=== PATIENT | male | born 1950 | race Caucasian/White ===

== ENCOUNTER → 2019-01-18 07:17 | Outpatient (CLI) | payer OTHER, MEDICAID, SELFPAY ==
--- NOTE | 2019-01-18 | DI.US.S_ITS ---
PROCEDURE: US ARTERIAL DUPLEX LE BI INDICATIONS: PAIN IN BOTH LOWER EXTREMITIES TECHNIQUE: Color and pulse Doppler interrogation was performed of both lower extremity arterial systems, with image documentation. COMPARISON: None. FINDINGS: Right lower extremity: Common femoral artery: 166 cm/sec, with triphasic flow. Deep femoral artery: 160 cm/sec, with triphasic flow. Proximal superficial femoral artery: 165 cm/sec, with triphasic flow. Mid superficial femoral artery: 92 cm/sec, with triphasic flow. Distal superficial femoral artery: 93 cm/sec, with triphasic flow. Popliteal artery: 80 cm/sec, with triphasic flow. Posterior tibial artery: 107 cm/sec, with triphasic flow. Anterior tibial artery/dorsalis pedis: 60 cm/sec, with triphasic flow. Siu-scale imaging description: Mild diffuse plaque Left lower extremity: Common femoral artery: 141 cm/sec, with triphasic flow. Deep femoral artery: 157 cm/sec, with triphasic flow. Proximal superficial femoral artery: 82 cm/sec, with triphasic flow. Mid superficial femoral artery: 87 cm/sec, with triphasic flow. Distal superficial femoral artery: 105 cm/sec, with triphasic flow. Popliteal artery: 87 cm/sec, with triphasic flow. Posterior tibial artery: 83 cm/sec, with triphasic flow. Anterior tibial artery/dorsalis pedis: 67 cm/sec, with triphasic flow. Siu-scale imaging description: Mild diffuse plaque IMPRESSION: No evidence of arterial insufficiency to the bilateral lower extremities. Dictated by: Juan Miguel M.D. on 01/18/2019 at 14:05 Approved by: Juan Miguel M.D. on 01/18/2019 at 14:07
--- NOTE | 2019-01-18 | DI.NM.S_ITS ---
PROCEDURE: NM CROW PERF SPECT R&S PHARM Rest and pharmacological stress myocardial perfusion SPECT with gated imaging and ejection fraction RADIOPHARMACEUTICAL: 24.2 mCi Tc-99m tetrafosmin IV at rest and 25.8 mCi Tc-99m tetrafosmin IV at peak effect of pharmacological stress. [id number] was performed. INDICATIONS: SHORTNESS OF BREATH TECHNIQUE: Radiopharmaceutical was injected at peak stress test, and also at rest. SPECT images were obtained. SPECT myocardial perfusion images were displayed in short axis, horizontal long axis, and vertical long axis views. Gated images were reviewed using [employer] software. COMPARISON: None. CARDIAC STRESS: A pharmacologic stress test was performed under the supervision of an attending staff, using an infusion of lexiscan. Patient did exercise for 6 minutes and 56 seconds (4.6 METs) but only reached 66% of max predicted heart rate and, therefore, the study was switched to pharmaceutical nuclear stress test. Hemodynamic data: There is normal blood pressure and heart rate response to pharmacologic stress. Symptoms: The patient denied anginal chest pain. Aminophylline: none EKG: No diagnostic changes of ischemia; no ectopy. FINDINGS: Raw data: There is good myocardial uptake of radiotracer. No significant motion artifacts. Tnnt-ha-trxzx ratio is 0.43 (normal is less than 0.38 for tetrafosmin tracer). Left ventricle function: Gated images demonstrate normal mild hypokinesis of the basal inferior wall. No transient ischemic dilation; TID is 0.92 (normal less than 1.3). Left ventricle resting end diastolic volume is 119 mL. Left ventricle stress ejection fraction is 74%; normal range is above 45%. Myocardial perfusion: There is a severe fixed defect in the basal inferior wall that persists with prone imaging, suggesting prior infarct with no significant ischemia. There is a moderately severe fixed mid- distal inferior wall defect extending to apex that improves significantly with prone imaging, suggesting diaphragmatic attenuation rather than true ischemia or infarction. 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 No ischemia. 1) Abnormal perfusion images consistent with prior infarct in the basal inferior wall. There is a severe fixed defect in the basal inferior wall that persists with prone imaging, suggesting prior infarct with no significant ischemia. There is a moderately severe fixed mid- distal inferior wall defect extending to apex that improves significantly with prone imaging, suggesting diaphragmatic attenuation rather than true ischemia or infarction. 2) Normal left ventricular size and systolic function (post stress EC 74%). Basal inferior wall is mildly hypokinetic. 3) No ECG evidence of ischemia. 4) No angina during the study. 5) Target heart rate not reached with exercise (4.6 METs, only 66% of max predicted heart rate reached). Study switched to lexiscan. 6) No prior nuclear stress test available for comparison. Dictated by: Adelina Landeros MD on 01/19/2019 at 12:48 Approved by: Adelina Landeros MD on 01/19/2019 at 12:54
--- NOTE | 2019-01-18 09:23 | PM.TREADMILL ---
Cardiac Stress Test Report Referral & Results Date Patient Seen: 01/18/19 Requesting provider: Ozzy De Anda Indication: Dyspnea, known coronary disease status post bypass surgery 2017 Rest ECG: Unremarkable Procedure Note: After both written and verbal informed consent patient was hooked up to the treadmill monitoring system and had an IV started by the diagnostic imaging nursing staff. Patient was then placed on the treadmill per the usual [place] protocol. He quickly became quite dyspneic and really failed to increase his heart rate (he is on beta-deena therapy which he had continued at the direction of his finishing inspector). He became quite wheezy with obvious respiratory issues and it was clear he was not going to be able to continue much further with the test. Therefore the standard [place]rington protocol testing was abandoned in favor of switching to a Lexiscan stress. Patient's treadmill was then slow to 1 mi an hour with no elevation in he was injected with the Lexiscan material by the nuclear physicist. This is immediately followed by administration of the Cardiolite tracer. Patient's dyspnea and struggles while on Barrington protocol treadmill disappeared with the slower treadmill. He had no additional symptoms. After spending 3 minutes walking at 1 mi an hour with no elevation he was transferred back to the [facility] additional time spent monitoring his condition. Occasional PVCs were identified Impression: Normal response to infuse materials Please see perfusion imaging report for details regarding possible ischemia. Patient clearly has an element of chronic pulmonary disease based on his clinical picture while exercising, and I suggested he have repeat pulmonary function testing performed as well (he tells me he had this done prior to his bypass surgery in 2017) Please note: Actual ECG tracings can be found in the PACS system.
--- NOTE | 2019-01-18 09:26 | P.PCN_ITS ---
Cardiac Stress Test Report Referral & Results Date Patient Seen: 01/18/19 Requesting provider: Ozzy De Anda Indication: Dyspnea, known coronary disease status post bypass surgery 2017 Rest ECG: Unremarkable Procedure Note: After both written and verbal informed consent patient was hooked up to the treadmill monitoring system and had an IV started by the diagnostic imaging nursing staff. Patient was then placed on the treadmill per the usual [place] protocol. He quickly became quite dyspneic and really failed to increase his heart rate (he is on beta-deena therapy which he had continued at the direction of his mass spectroscopist). He became quite wheezy with obvious respiratory issues and it was clear he was not going to be able to continue much further with the test. Therefore the standard Barrington protocol testing was abandoned in favor of switching to a Lexiscan stress. Patient's treadmill was then slow to 1 mi an hour with no elevation in he was injected with the Lexiscan material by the nuclear equipment operator. This is immediately followed by administration of the Cardiolite tracer. Patient's dyspnea and struggles while on Barrington protocol treadmill disappeared with the slower treadmill. He had no additional symptoms. After spending 3 minutes walking at 1 mi an hour with no elevation he was transferred back to the [facility] additional time spent monitoring his condition. Occasional PVCs were identified Impression: Normal response to infuse materials Please see perfusion imaging report for details regarding possible ischemia. Patient clearly has an element of chronic pulmonary disease based on his clinical picture while exercising, and I suggested he have repeat pulmonary function testing performed as well (he tells me he had this done prior to his bypass surgery in 2017) Please note: Actual ECG tracings can be found in the PACS system.
--- NOTE | 2019-01-22 16:37 | PM.PFT.1 ---
Pulmonary Function Test Referral & Results Date Patient Seen: 01/18/19 Requesting provider: Ozzy De Anda Results: The spirometry demonstrates an FVC of 2.93 L which is 60% of predicted. The FEV1 was measured at 2.14 L which is 67% of predicted. The FEV1/FVC ratio was 73 which is 98% of predicted. Following the administration of bronchodilator there was a 12% improvement in FEV1 and a 45% improvement in FEF 25-75%. Lung volumes show an SVC of 3.23 L which is 72% of predicted. The diffusing capacity was measured at 21.04 which is 67% of predicted. No hemoglobin value was provided, so no correction for potential anemia could be made, if appropriate. The maximum voluntary ventilation was reduced Interpretation: This study demonstrates mild obstructive lung disease with some limited evidence of benefit following bronchodilator administration based on improvement in FEV1 and FEF 25-75% There is also mild restrictive lung disease present based on reduction in lung volumes There is also mild reduction in diffusing capacity suggesting some element of disease at the capillary alveolar level Clinical correlation suggested
== END ==
PROVIDERS: PCP Family Medicine; Visit Provider Internal Medicine Cardiovascular Disease
DX: R06.02 Shortness of breath (principal)
CPT/HCPCS: 78452; 93016; 93017; 93018; 93925; 94060; 94726; 94729; A9502; J2785

== ENCOUNTER → 2019-01-19 07:49 | Outpatient (CLI) | payer OTHER, MEDICAID, SELFPAY ==
--- NOTE | 2019-01-19 | DI.ECHO.S_ITS ---
[place] [facility]---------+ [facility] +---------+ : : [address] : [address] : : : : [id number] : : : : Phone: [phone]+ Echocardiogram Report + + :Name: JONNY HELLER Study Date: 01/19/2019 Height: 69 in : :[facility] Exam Location: [facility] Weight: 231 lb : : Gender: Male BSA: 2.2 m2 : :: 1950 Age: 68 yrs BP: 120/82 mmHg: :Reason For Study: SOB : :Ordering Physician: Ozzy : :Alexiwal Performed By: Elva Page : + + Interpretation Summary The left ventricle is normal in size. The ejection fraction is estimated to be 50-55%. The right ventricle is grossly normal size. The right ventricular systolic function is normal. There is mild tricuspid regurgitation. The right ventricular systolic pressure is estimated to be at least 24 mmHg based on an estimated right atrial pressure of 8 mm Hg. The ascending aorta is moderately enlarged. Procedure: A two-dimensional transthoracic echocardiogram with color flow and Doppler was performed. The study quality was technically adequate. There is no prior echocardiogram noted for this patient. The heart rate ranged between 46-51 bpm during the study. The patient was in normal sinus rhythm during the exam. Left Ventricle: The left ventricle is normal in size. Proximal septal thickening is noted. There is no echo evidence for significant left ventricular outflow tract obstruction. There is no thrombus. The ejection fraction is estimated to be 50-55%. Septal motion is consistent with conduction abnormality. MV E/A: 1.6 Med Peak E' Zhang: 6.4 cm/sec E/E' med: 16.2. Right Ventricle: The right ventricle is grossly normal size. The right ventricular systolic function is normal. Atria: The left atrium is moderately dilated. The right atrium is borderline dilated. There is no Doppler evidence for an interatrial shunt. Mitral Valve: The mitral valve leaflets are slightly calcified. There is trace mitral regurgitation. Aortic Valve: The aortic valve is mildly calcified. The aortic valve is trileaflet. Leaflet mobility is minimally reduced. There is no hemodynamically significant valvular aortic stenosis. There is trace aortic regurgitation. Tricuspid Valve: The tricuspid valve is normal. There is mild tricuspid regurgitation. The right ventricular systolic pressure is estimated to be at least 24 mmHg based on an estimated right atrial pressure of 8 mm Hg. Pulmonic Valve: The pulmonic valve is not well visualized. There is trace pulmonic regurgitation. Great Vessels: The aortic root is normal size. The ascending aorta is moderately enlarged. The aortic arch could not be visualized. The pulmonary artery is not well visualized, but is probably normal size. The IVC is dilated (diameter is greater than 2.1 cm) yet it collapses greater than 50% with a sniff. This suggests a right atrial pressure of 8 mm Hg. Pericardium/ Pleura There is no pericardial effusion. MMode/2D Measurements & Calculations LVIDd: 5.2 cm LVOT diam: 2.1 cm LVIDs: 3.2 cm Ao root diam: 3.8 cm FS: 39.6 % asc Aorta Diam: 4.3 cm EPSS: 0.34 cm IVSd: 0.83 cm LVPWd: 0.70 cm LV sanchez. diameter/BSA (cm/m^2): 2.4 LV sys. diameter/BSA (cm/m^2): 1.4 LA dimension: 1.5 cm RA long axis: 6.0 cm LA A2 area: 25.7 cm2 RA area: 22.3 cm2 LA A4 area: 26.4 cm2 RA vol: 70.4 ml LA length (vol): 5.6 cm RA : 32.1 ml/m2 LA vol: 102.8 ml IVC diam: 2.3 cm LA vol index: 46.8 ml/m2 RVD1 (basal): 4.2 cm TAPSE: 2.2 cm Doppler Measurements & Calculations Ao V2 max: 146.9 cm/sec LVOT Max Zhang: 95.5 cm/sec Ao V2 mean: 100.8 cm/sec LV V1 max P.7 mmHg Ao max P.6 mmHg LV V1 VTI: 22.2 cm Ao mean P.5 mmHg BONNIE(I,D): 2.4 cm2 Ao V2 VTI: 32.4 cm BONNIE(V,D): 2.3 cm2 sev ratio: 0.68 BONNIE indexed to BSA (cm^2/m^2): 1.1 MV E max zhang: 103.4 cm/sec TR max zhang: 201.7 cm/sec MV A max zhang: 66.4 cm/sec TR max P.3 mmHg MV E/A: 1.6 PA V2 max: 71.6 cm/sec Med Peak E' Zhang: 6.4 cm/sec PA V2 mean: 55.8 cm/sec E/E' med: 16.2 PA mean P.3 mmHg Lat Peak E' Zhang: 9.1 cm/sec E/E' lat: 11.4 E/e' average: 13.8 MV dec time: 0.19 sec MV P1/2t: 57.4 msec MV P1/2t max zhang: 103.7 cm/sec SV(LVOT): 79.1 ml MVA(P1/2t): 3.8 cm2 Reading Physician:MARLEE
== END ==
PROVIDERS: PCP Family Medicine; Visit Provider Internal Medicine Cardiovascular Disease
DX: I07.1 Rheumatic tricuspid insufficiency (principal); I77.89 Other specified disorders of arteries and arterioles; R06.02 Shortness of breath
CPT/HCPCS: 93306

== ENCOUNTER 2019-04-09 10:30 | Emergency (ER) | payer MEDICARE, MEDICAID, SELFPAY ==
[2019-04-09 10:36] VITALS: BP 137/67; PULSE 70; RESP 14; TEMP 36.4; O2SAT 95
--- NOTE | 2019-04-09 10:43 | DI.US.S_ITS ---
PROCEDURE: US PERIPH VENOUS UP EXTREM RT INDICATIONS: PAIN R ARM/AXILLA AFTER PIV YESTERDAY, STAGE IV CANCER PT TECHNIQUE: Real-time imaging, as well as color and pulse Doppler interrogation, was performed of the right upper extremity deep veins from the inferior neck to the antecubital fossa. COMPARISON: None. FINDINGS: The internal jugular vein, visualized portions of the subclavian vein, axillary, and brachial veins are free of intraluminal thrombus. Where physically possible, the veins are normally compressible. Color and pulse Doppler demonstrate normal intraluminal flow, with expected phasicity and pulsatility. Additional scanning of the cephalic and basilic veins of the superficial system demonstrate normal compressibility, without thrombus. IMPRESSION: No evidence of right upper extremity deep vein thrombosis. Dictated by: Harrison Ansari M.D. on 04/09/2019 at 11:09 Approved by: Harrison Ansari M.D. on 04/09/2019 at 11:11
--- NOTE | 2019-04-09 11:34 | ED.EXTPRO ---
HPI - Extremity Problem <JANETH Ralph - Last Filed: 04/09/19 22:56> General Chief complaint: Extremity Problem,Nontraumatic Stated complaint: r arm pain/port/ Time Seen by Provider: 04/09/19 11:17 Source: patient Mode of arrival: ambulatory Limitations: no limitations History of Present Illness HPI Narrative: This is a pleasant 68-year-old gentleman, previous smoker, presents to ED with pain on right axilla. 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 He has a Port-A-cath on his right side chest and this was accessed yesterday for contrast. However, the port was working appropriately yesterday and the contrast was leaked on him. The nurse at the accessed peripheral IV on right AC with difficulty. He had completed imaging test yesterday with contrast. On the way home via [place], he started noticing pain on right axilla with right arm elevation. Patient reports the pain has gotten progressively worse today. He denies fever, redness, swelling on right axilla. Patient denies difficulty with breathing. Patient reports pain is recreated by palpation and elevation his right arm. Related Data Allergies Allergy/AdvReac Type Severity Reaction Status Date / Time codeine Allergy Vomiting Verified 04/09/19 10:41 Review of Systems <JANETH Ralph - Last Filed: 04/09/19 22:56> Review of Systems ROS Unobtainable: All systems reviewed & are unremarkable except as noted in HPI and below PFSH <JANETH Ralph - Last Filed: 04/09/19 22:56> Medical History Prostate cancer (Acute) Social History Smoking Status: Former smoker Social History Smoking Status: Former smoker Exam <JANETH Ralph - Last Filed: 04/09/19 22:56> Narrative Exam Narrative: General appearance: well developed, well nourished, in no acute distress. Head: normocephalic, atraumatic, no scalp lesions, non-tender. Eye: pupil equal, round. EOMI. Nose: nares patent. Oral: mucosa moist. Neck/Thyroid: neck supple, full range of motion, no visible masses. Skin: no suspicious rashes, lesions over visible areas. Warm and dry. Heart: no clubbing, no cyanosis, no edema. Lungs: Breathing even and unlabored. No stridor. No accessory muscles used. Chest: normal shape and expansion. Abdomen: non-obese, non-distended. Neurologic: alert and oriented. Cognitive exam, [employer] and PNS grossly intact on informal exam. Psych: good eye contact, normal affect. Initial Vital Signs Initial Vital Signs: Vital Signs Temperature 97.6 F 04/09/19 10:36 Pulse Rate 70 04/09/19 10:36 Respiratory Rate 14 04/09/19 10:36 Blood Pressure 137/67 04/09/19 10:36 Pulse Oximetry 95 04/09/19 10:36 Extrem General: normal to inspection and full ROM Right upper extremity: normal to inspection, full ROM, normal capillary refill and shoulder/upper arm Details: normal to inspection, tenderness (axilla and worse with elevation ) and other (no erythema); no swelling and no unusual warmth; no edema Left upper extremity: normal to inspection and full ROM Right lower extremity: normal to inspection and full ROM Left lower extremity: normal to inspection and full ROM <Amparo Silverman DO - Last Filed: 04/13/19 07:14> Initial Vital Signs Initial Vital Signs: Vital Signs Temperature 97.6 F 04/09/19 10:36 Pulse Rate 70 04/09/19 10:36 Respiratory Rate 14 04/09/19 10:36 Blood Pressure 137/67 04/09/19 10:36 Pulse Oximetry 95 04/09/19 10:36 Course <JANETH Ralph - Last Filed: 04/09/19 22:56> Orders Ordered: ED Orders 04/09/19 10:43 US periph venous up extrem rt Stat Vital Signs - 8 hr 04/09/19 10:36 Temperature 97.6 F Pulse Rate 70 Respiratory Rate 14 Blood Pressure 137/67 Pulse Oximetry 95 <DO Jigar Salter Last Filed: 04/13/19 07:14> Orders Ordered: ED Orders 04/09/19 10:43 US periph venous up extrem rt Stat Vital Signs - 8 hr 04/09/19 10:36 Temperature 97.6 F Pulse Rate 70 Respiratory Rate 14 Blood Pressure 137/67 Pulse Oximetry 95 MDM - Extremity (Nontraumatic) <Seng JANETH Zimmerman - Last Filed: 04/09/19 22:56> Differential Diagnosis Likely cellulitis and deep venous thrombosis of upper extremity Medical Records Attestation: I reviewed the patient's medical records. Imaging Data US Venous peripheral- R: Radiologist's impression: Ultrasound Report Signed Patient: Adrien Spicer [facility]#: [id number] : 1950Acct:[id number] Age/Sex: 68 / MDate of Service: 04/09/19 Loc: ED Accession Number: [id number] Procedure: US periph venous up extrem rt Ordering Provider: Amparo Silverman D.O. PROCEDURE: US PERIPH VENOUS UP EXTREM RT INDICATIONS: PAIN R ARM/AXILLA AFTER PIV YESTERDAY, STAGE IV CANCER PT TECHNIQUE: Real-time imaging, as well as color and pulse Doppler interrogation, was performed of the right upper extremity deep veins from the inferior neck to the antecubital fossa. COMPARISON: None. FINDINGS: The internal jugular vein, visualized portions of the subclavian vein, axillary, and brachial veins are free of intraluminal thrombus. Where physically possible, the veins are normally compressible. Color and pulse Doppler demonstrate normal intraluminal flow, with expected phasicity and pulsatility. Additional scanning of the cephalic and basilic veins of the superficial system demonstrate normal compressibility, without thrombus. IMPRESSION: No evidence of right upper extremity deep vein thrombosis. Dictated by: Harrison Ansari M.D. on 04/09/2019 at 11:09 Approved by: Harrison Ansari M.D. on 04/09/2019 at 11:11 [facility] Narrative Medical decision making narrative: This patient is 68-year-old male complains of right axillary pain after he had IV injection for nuclear test to follow-up on his prostate cancer as you done yesterday. He has a Port-A-Cath on right-side chest which was not appropriately and leaked all over when he was attempted. Venous peripheral Ultrasound test was done on right upper extremity with no acute findings. Patient reports his pain has resolved at the time of discharge. We discussed return precautions and patient was advised to follow with his primary care physician as needed. No further questions were expressed and patient agrees with treatment plan. Discharge Plan Departure Patient Disposition: Home Clinical Impression: Acute chest wall pain Discharge Date/Time: 04/09/19 13:20 Interventions: ED Discharge Assessment Last Done: 04/09/19 13:25 Instructions: DI for Atypical Chest Pain Activity Restrictions/Additional Instructions: You have been diagnosed with [resolved chest wall pain. There is no DVT in R upper arm]. What to do: *Take your medications as directed. There is no new medications to go home with *Follow up with your primary care provider in 2-3 days, call for an appointment. Let them know you were seen in the ED and that we asked you to be seen in follow up. *Return to ED if you have any new, worsening, or concerning symptoms, such as [increasing pain, short of breath, chest pain, redness/warmth/swelling to right arm or chest area]. Referrals: Kalyan Guan MD [Primary Care Provider] - <Amparo Silverman DO - Last Filed: 04/13/19 07:14> Cosign ED Attending Cosignature Attestation: I was immediately available in the department for consultation. This documentation has been reviewed and I agree with assessment and plan. Supervised by Amparo Silverman DO
--- NOTE | 2019-04-09 11:40 | ED_ITS ---
HPI - Extremity Problem <JANETH Ralph - Last Filed: 04/09/19 22:56> General Chief complaint: Extremity Problem,Nontraumatic Stated complaint: r arm pain/port/ Time Seen by Provider: 04/09/19 11:17 Source: patient Mode of arrival: ambulatory Limitations: no limitations History of Present Illness HPI Narrative: This is a pleasant 68-year-old gentleman, previous smoker, presents to ED with pain on right axilla. 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 He has a Port-A-cath on his right side chest and this was accessed yesterday for contrast. However, the port was working appropriately yesterday and the contrast was leaked on him. The nurse at the accessed peripheral IV on right AC with difficulty. He had completed imaging test yesterday with contrast. On the way home via [place], he started noticing pain on right axilla with right arm elevation. Patient reports the pain has gotten progressively worse today. He denies fever, redness, swelling on right axilla. Patient denies difficulty with breathing. Patient reports pain is recreated by palpation and elevation his right arm. Related Data Allergies Allergy/AdvReac Type Severity Reaction Status Date / Time codeine Allergy Vomiting Verified 04/09/19 10:41 Review of Systems <JANETH Ralph - Last Filed: 04/09/19 22:56> Review of Systems ROS Unobtainable: All systems reviewed & are unremarkable except as noted in HPI and below PFSH <JANETH Ralph - Last Filed: 04/09/19 22:56> Medical History Prostate cancer (Acute) Social History Smoking Status: Former smoker Social History Smoking Status: Former smoker Exam <JANETH Ralph - Last Filed: 04/09/19 22:56> Narrative Exam Narrative: General appearance: well developed, well nourished, in no acute distress. Head: normocephalic, atraumatic, no scalp lesions, non-tender. Eye: pupil equal, round. EOMI. Nose: nares patent. Oral: mucosa moist. Neck/Thyroid: neck supple, full range of motion, no visible masses. Skin: no suspicious rashes, lesions over visible areas. Warm and dry. Heart: no clubbing, no cyanosis, no edema. Lungs: Breathing even and unlabored. No stridor. No accessory muscles used. Chest: normal shape and expansion. Abdomen: non-obese, non-distended. Neurologic: alert and oriented. Cognitive exam, [employer] and PNS grossly intact on informal exam. Psych: good eye contact, normal affect. Initial Vital Signs Initial Vital Signs: Vital Signs Temperature 97.6 F 04/09/19 10:36 Pulse Rate 70 04/09/19 10:36 Respiratory Rate 14 04/09/19 10:36 Blood Pressure 137/67 04/09/19 10:36 Pulse Oximetry 95 04/09/19 10:36 Extrem General: normal to inspection and full ROM Right upper extremity: normal to inspection, full ROM, normal capillary refill and shoulder/upper arm Details: normal to inspection, tenderness (axilla and worse with elevation ) and other (no erythema); no swelling and no unusual warmth; no edema Left upper extremity: normal to inspection and full ROM Right lower extremity: normal to inspection and full ROM Left lower extremity: normal to inspection and full ROM <Amparo Silverman DO - Last Filed: 04/13/19 07:14> Initial Vital Signs Initial Vital Signs: Vital Signs Temperature 97.6 F 04/09/19 10:36 Pulse Rate 70 04/09/19 10:36 Respiratory Rate 14 04/09/19 10:36 Blood Pressure 137/67 04/09/19 10:36 Pulse Oximetry 95 04/09/19 10:36 Course <JANETH Ralph - Last Filed: 04/09/19 22:56> Orders Ordered: ED Orders 04/09/19 10:43 US periph venous up extrem rt Stat Vital Signs - 8 hr 04/09/19 10:36 Temperature 97.6 F Pulse Rate 70 Respiratory Rate 14 Blood Pressure 137/67 Pulse Oximetry 95 <DO Jigar Salter Last Filed: 04/13/19 07:14> Orders Ordered: ED Orders 04/09/19 10:43 US periph venous up extrem rt Stat Vital Signs - 8 hr 04/09/19 10:36 Temperature 97.6 F Pulse Rate 70 Respiratory Rate 14 Blood Pressure 137/67 Pulse Oximetry 95 MDM - Extremity (Nontraumatic) <Seng JANETH Zimmerman - Last Filed: 04/09/19 22:56> Differential Diagnosis Likely cellulitis and deep venous thrombosis of upper extremity Medical Records Attestation: I reviewed the patient's medical records. Imaging Data US Venous peripheral- R: Radiologist's impression: Ultrasound Report Signed Patient: Adrien Spicer [facility]#: [id number] : 1950Acct:[id number] Age/Sex: 68 / MDate of Service: 04/09/19 Loc: ED Accession Number: [id number] Procedure: US periph venous up extrem rt Ordering Provider: Amparo Silverman D.O. PROCEDURE: US PERIPH VENOUS UP EXTREM RT INDICATIONS: PAIN R ARM/AXILLA AFTER PIV YESTERDAY, STAGE IV CANCER PT TECHNIQUE: Real-time imaging, as well as color and pulse Doppler interrogation, was performed of the right upper extremity deep veins from the inferior neck to the antecubital fossa. COMPARISON: None. FINDINGS: The internal jugular vein, visualized portions of the subclavian vein, axillary, and brachial veins are free of intraluminal thrombus. Where physically possible, the veins are normally compressible. Color and pulse Doppler demonstrate normal intraluminal flow, with expected phasicity and pulsatility. Additional scanning of the cephalic and basilic veins of the superficial system demonstrate normal compressibility, without thrombus. IMPRESSION: No evidence of right upper extremity deep vein thrombosis. Dictated by: Harrison Ansari M.D. on 04/09/2019 at 11:09 Approved by: Harrison Ansari M.D. on 04/09/2019 at 11:11 [facility] Narrative Medical decision making narrative: This patient is 68-year-old male complains of right axillary pain after he had IV injection for nuclear test to follow-up on his prostate cancer as you done yesterday. He has a Port-A-Cath on right-side chest which was not appropriately and leaked all over when he was attempted. Venous peripheral Ultrasound test was done on right upper extremity with no acute findings. Patient reports his pain has resolved at the time of discharge. We discussed return precautions and patient was advised to follow with his primary care physician as needed. No further questions were expressed and patient agrees with treatment plan. Discharge Plan Departure Patient Disposition: Home Clinical Impression: Acute chest wall pain Discharge Date/Time: 04/09/19 13:20 Interventions: ED Discharge Assessment Last Done: 04/09/19 13:25 Instructions: DI for Atypical Chest Pain Activity Restrictions/Additional Instructions: You have been diagnosed with [resolved chest wall pain. There is no DVT in R upper arm]. What to do: *Take your medications as directed. There is no new medications to go home with *Follow up with your primary care provider in 2-3 days, call for an appointment. Let them know you were seen in the ED and that we asked you to be seen in follow up. *Return to ED if you have any new, worsening, or concerning symptoms, such as [increasing pain, short of breath, chest pain, redness/warmth/swelling to right arm or chest area]. Referrals: Kalyan Guan MD [Primary Care Provider] - <Amparo Silverman DO - Last Filed: 04/13/19 07:14> Cosign ED Attending Cosignature Attestation: I was immediately available in the department for consultation. This documentation has been reviewed and I agree with assessment and plan. Supervised by Amparo Silverman DO
[2019-04-09 13:25] VITALS: BP 109/83; PULSE 50; RESP 12; O2SAT 100
== END 2019-04-09 13:20 | disposition home or self-care (01) ==
PROVIDERS: Emergency Provider Nurse Practitioner Family; PCP Family Medicine
DX: R07.89 Other chest pain (principal)
CPT/HCPCS: 93971; 99283

== ENCOUNTER → 2019-09-14 11:50 | Outpatient (CLI) | payer MEDICARE, MEDICAID, SELFPAY ==
[2019-09-14 11:57] LABS: Bacteria Urine None Seen; RBC Urine None Seen (0-5/HPF)
[2019-09-14 12:36] LABS: Appearance Urine UA CLEAR; Bilirubin Urine UA NEGATIVE (NEGATIVE); Color Urine UA YELLOW; Glucose Urine UA NEGATIVE (Negative); Ketones Urine UA NEGATIVE (NEGATIVE); Leukocyte Esterase Urine UA NEGATIVE (NEGATIVE); Nitrite Urine UA NEGATIVE (Negative); Occult Blood Urine UA NEGATIVE (Negative); Protein Urine UA NEGATIVE (Negative); Specific Gravity Urine UA <=1.005 (1.000-1.035); Urobilinogen Urine UA 0.2 E.U./dL (0.2); pH Urine UA 6.5 (4.5-8.0)
[2019-09-14 12:46] LABS: Culture Indicated Urine Cult Not Indicated; Squamous Epithelial Cell Urine 0-1 /HPF (0-5/HPF); WBC Urine 0-1/HPF (0-5/HPF)
== END ==
PROVIDERS: PCP Student in an Organized Health Care Education/Training Program; Visit Provider Student in an Organized Health Care Education/Training Program
DX: C61 Malignant neoplasm of prostate (principal); R30.0 Dysuria
CPT/HCPCS: 81001

== ENCOUNTER → 2019-09-27 07:18 | Outpatient (CLI) | payer MEDICARE, MEDICAID, SELFPAY ==
--- NOTE | 2019-09-27 | DI.MRI.S_ITS ---
PROCEDURE: MR HEAD/BRAIN W CON INDICATIONS: Malignant neoplasm of prostate TECHNIQUE: Noncontrast sagittal and axial FLAIR, axial and coronal T2 fast spin echo, axial VIBE, axial gradient echo, axial diffusion and ADC through the brain. After the administration of contrast, axial and coronal VIBE with fat saturation through the brain. COMPARISON: Outside Film, NM, NM BONE SCAN WHOLE BODY, 09/08/2019, 10:29. Outside Film, CT, CT HEAD WITH/WITHOUT CONTRAST, 09/10/2019, 13:38. Outside Facility, RG, CT HEAD W/WO CONTRAST, 09/10/2019, 13:38. FINDINGS: Image quality: Excellent. CSF spaces: Ventricles are normal in size and shape. Basal cisterns are patent. No extra-axial fluid collections. Brain: Focus of enhancement present within the right frontal calvarium is noted, with extension through the inner table and into the adjacent extra-axial space image 101/5. Overall, this measures 1.1 x 1.0 cm on image 100/5. No definite abnormal parenchymal enhancement is seen. Siu-white matter interface appears intact. No suspicious white matter lesions. No abnormal intracranial enhancement. Diffusion weighted images show no acute ischemic insults. Brainstem appears normal. Normal intravascular flow voids are present. Incidental subcentimeter possible cystic/nonenhancing focus in the region of the left fossa of Rosenmueller Skull and face: Calvarial marrow signal is normal. Orbits appear normal. Sinuses: Sinuses and mastoids are clear. IMPRESSION: Enhancing focus involving the right calvarium, and extending to the right frontal extra-axial space, which in the setting of prostate malignancy is suspicious for metastatic disease. Of note however, there is no corresponding sonographic abnormality on the recent bone scan from 09/10/19. Theoretically, this could represent small meningioma adjacent to vascular enhancement in the calvarium. Dictated by: Paul Carvajal M.D. on 09/27/2019 at 10:33 Approved by: Paul Carvajal M.D. on 09/27/2019 at 10:55
== END ==
PROVIDERS: PCP Student in an Organized Health Care Education/Training Program; Referring Provider Nurse Practitioner Gerontology; Visit Provider Nurse Practitioner Gerontology
DX: C61 Malignant neoplasm of prostate (principal); R51 Headache
CPT/HCPCS: 70552; A9579

== ENCOUNTER → 2019-12-17 10:25 | Outpatient (CLI) | payer MEDICARE, MEDICAID, SELFPAY ==
[2019-12-17 11:26] LABS: Appearance Urine UA CLEAR; Bilirubin Urine UA NEGATIVE (NEGATIVE); Color Urine UA YELLOW; Glucose Urine UA NEGATIVE (Negative); Ketones Urine UA NEGATIVE (NEGATIVE); Leukocyte Esterase Urine UA NEGATIVE (NEGATIVE); Nitrite Urine UA NEGATIVE (Negative); Occult Blood Urine UA NEGATIVE (Negative); Protein Urine UA 1+ (Negative); Urobilinogen Urine UA 0.2 E.U./dL (0.2)
[2019-12-17 11:47] LABS: RBC Urine 0-1/HPF (0-5/HPF); WBC Urine 1-5/HPF (0-5/HPF)
[2019-12-17 11:48] LABS: Bacteria Urine Few (2-10); Culture Indicated Urine Cult Not Indicated; Mucus Urine 1+ (Negative)
[2019-12-17 18:03] LABS: Influenza A - CEPHEID Flu A NEGATIVE (NEGATIVE); Influenza B - CEPHEID Flu B NEGATIVE (NEGATIVE)
[2019-12-20 18:20] LABS: COVID19 Sendout Not Detected (Not Detected)
== END ==
PROVIDERS: Physician Assistant; PCP Student in an Organized Health Care Education/Training Program; Referring Provider Student in an Organized Health Care Education/Training Program; Visit Provider Student in an Organized Health Care Education/Training Program
DX: R30.0 Dysuria (principal); R82.998 Other abnormal findings in urine; R06.02 Shortness of breath; R05 Cough
CPT/HCPCS: 81001; 87502; 87635

== ENCOUNTER 2019-12-21 15:07 | Inpatient (IN) | payer MEDICARE, MEDICAID, SELFPAY ==
[2019-12-21] VITALS (7 sets, daily range): BP systolic 109–132; BP diastolic 51–80; PULSE 80–97; RESP 13–24; TEMP 36.6–36.8; O2SAT 93–97; BMI 36.0; BMI 36.1
--- NOTE | 2019-12-21 15:23 | DI.RAD.S_ITS ---
PROCEDURE: XR CHEST 1V INDICATIONS: SHORTNESS OF BREATH TECHNIQUE: One view of the chest was acquired. COMPARISON: None. FINDINGS: Surgical changes and devices: Sternal wires and right port a cath are noted. Lungs and pleura: Mild increased vascularity. Mediastinum: Mediastinal contours appear normal. Heart size is enlarged. Bones and chest wall: No suspicious bony lesions. Overlying soft tissues appear unremarkable. IMPRESSION: Mild increased vascularity suggestive of edema. Dictated by: Sada Gutierrez M.D. on 12/21/2019 at 15:51 Approved by: Sada Gutierrez M.D. on 12/21/2019 at 15:53
[2019-12-21 15:37] LABS: INR 1.1 (0.9-1.3); Prothrombin Time 12.4 SECONDS (10.1-12.7)
[2019-12-21 15:39] LABS: PTT Partial Thromboplastin Tim 29 SECONDS (26.4-36.2)
[2019-12-21 15:42] LABS: Alanine Aminotransferase 71 IU/L (<50); Albumin 4.2 g/dL (3.5-5.0); Albumin Globulin Ratio 1.2 (1.0-2.8); Alkaline Phosphatase 71 U/L (38-126); Aspartate Aminotransferase 26 IU/L (17-59); BUN Creatinine Ratio 17.1 (6-22); Bilirubin Total 0.6 mg/dL (0.2-1.3); Blood Urea Nitrogen 18 mg/dL (9-20); Calcium 9.9 mg/dL (8.4-10.2); Carbon Dioxide 25 mmol/L (22-32); Chloride 104 mmol/L (98-107); Creatine Kinase 50 U/L (55-170); Estimated Glomerular Filt Rate > 60.0 mL/min (>60); Globulin 3.5 g/dL (1.7-4.1); Glucose 158 mg/dL (80-110); HEMOLYSIS < 15 (0-50); Lactate (Lactic Acid) 1.6 mmol/L (0.7-2.1); Magnesium 1.3 mg/dL (1.6-2.3); Potassium 4.3 mmol/L (3.4-5.1); Sodium 137 mmol/L (137-145); Total Protein 7.7 g/dL (6.3-8.2)
[2019-12-21 15:51] LABS: D Dimer 202 ng/mL (<230)
[2019-12-21 15:54] LABS: NT-proBNP (BNP-Adult 18+) 231 pg/mL (<125); Troponin I < 0.012 ng/mL (0.01-0.034)
[2019-12-21 16:01] LABS: Procalcitonin 0.13 ng/mL (<0.5)
[2019-12-21 16:07] LABS: Hematocrit 34.8 % (41-53); Hemoglobin 12.2 g/dL (13.5-17.5); Mean Corpuscular HGB Conc 35.1 % (30-36); Mean Corpuscular Hemoglobin 34.9 PG (26-34); Mean Corpuscular Volume 99.6 fL (80-100); Platelet Count 257 X10^3/uL (150-400); Red Cell Distribution Width 16.5 % (11.6-14.8); White Blood Cell Count 6.3 X10^3/uL (4.5-11.0)
[2019-12-21 16:08] LABS: Add Manual Diff / Slide Review YES
--- NOTE | 2019-12-21 16:11 | ED_ITS ---
HPI - SOB/Dyspnea <LUMA DysonBC - Last Filed: 12/21/19 21:46> General Chief Complaint: Shortness of Breath/Dyspnea Stated Complaint: short of breath with exertion Time Seen by Provider: 12/21/19 15:11 Source: patient Mode of arrival: Ambulatory Limitations: no limitations History of Present Illness HPI Narrative: The patient is a 69-year-old male former smoker with history of prostate cancer who presents with a chief complaint of a few weeks of progressive dyspnea with exertion. He states that he was seen at the respiratory clinic and tested for covid on December 17, 2019. He states this came back negative. He states he has some chest pressure but only with deep breathing. He denies any abdominal pain, nausea vomiting or diarrhea. He does have a significant medical history including prostate cancer for which she is seeing radiation therapy. He has had chemotherapy, but stopped several months ago. He also has history of a CABG x 4, cholecystectomy, appendectomy and multiple orthopedic surgeries. He elected to come to the emergency department today after finding out that his covid test was negative. He also complains of headache lower back pain radiating down both of his legs and 1 episode of diarrhea Related Data Home Medications Medication Instructions Recorded Confirmed albuterol sulfate 90 mcg/actuation 2 puff INHALATION Q6H PRN 06/17/19 12/17/19 aerosol inhaler aspirin 81 mg tablet,delayed 81 mg PO DAILY 06/17/19 12/17/19 release atorvastatin 40 mg tablet 40 mg PO DAILY 06/17/19 12/17/19 carvedilol 6.25 mg tablet 6.25 mg PO BID 06/17/19 12/17/19 escitalopram oxalate 10 mg tablet 10 mg PO DAILY 06/17/19 12/17/19 lisinopril 10 mg tablet 10 mg PO DAILY 06/17/19 12/17/19 omeprazole 20 mg capsule,delayed 20 mg PO DAILY 06/17/19 12/17/19 release Allergies Allergy/AdvReac Type Severity Reaction Status Date / Time codeine Allergy Vomiting Verified 12/21/19 15:19 Review of Systems <LUMA DysonBC - Last Filed: 12/21/19 21:46> Review of Systems Narrative: GENERAL: Denies chills, fatigue, malaise, fever, sweats. HEENT: Denies sinus pain, ear pain, sore throat, difficulty swallowing, dizziness. RESPIRATORY: See HPI CARDIOVASCULAR: See HPI GASTROINTESTINAL: Denies nausea, vomiting, abdominal pain, diarrhea, constipation, melena. : Denies dysuria, frequency, incontinence, hematuria, urinary retention. MUSCULOSKELETAL: See HPI SKIN: Denies rash, skin lesions, or other NEUROLOGIC: Denies weakness, headache, numbness, change in speech, confusion, seizures, incoordination. PSYCHIATRIC: No concerning psychosocial issues. 12 point review of systems is negative except for those stated above Patient History <SUZANNE Dyson - Last Filed: 12/21/19 21:46> Medical History Allergies (Chronic) Ankle pain (Chronic) Chronic back pain (Chronic) Fractures (Resolved) Hepatitis (Chronic) Liver disease (Chronic) Prostate cancer (Chronic) Surgical History History of heart bypass surgery (Resolved ~2016) Family History Father Cancer Diabetes mellitus History of heart disease Hypertension Hyperlipidemia Mother Diabetes mellitus History of heart disease Brother Diabetes mellitus Sister Cancer Diabetes mellitus Social History Smoking Status: Former smoker Smoking Status: Former smoker alcohol intake frequency: 0-2 drinks per day Alcohol type: wine Substance Use Type: marijuana Exam <SUZANNE Dyson - Last Filed: 12/21/19 21:46> Narrative Exam Narrative: GENERAL: Elderly male sitting on stretcher in no acute distress HEAD: Atraumatic. Normocephalic. No temporal or scalp tenderness. EYES: Pupils equal round and reactive. Extraocular motions intact. No scleral icterus. No injection or drainage. ENT: Nose without bleeding, purulent drainage or septal hematoma. Throat without erythema, tonsillar hypertrophy or exudate. Uvula midline. Airway patent. NECK: Trachea midline. No JVD or lymphadenopathy. Supple, nontender, no meningeal signs. CARDIOVASCULAR: Regular rate and rhythm without murmurs, gallops, or rubs. RESPIRATORY: Dim bilaterally to auscultation. Breath sounds equal bilaterally. No wheezes, rales, or rhonchi. Speaking full sentences. No accessory muscle use. No coughing. GASTROINTESTINAL: Abdomen soft, non-tender, nondistended. No hepato- splenomegaly, or palpable masses. No guarding. EXTREMITIES: No clubbing, cyanosis, or edema. No joint tenderness, effusion, or edema noted. BACK: Nontender without deformity or crepitance. No flank tenderness. NEURO: AOx3. SKIN: No rash or erythema. Initial Vital Signs Initial Vital Signs: Vital Signs Temperature 98.3 F 12/21/19 15:07 Pulse Rate 84 12/21/19 15:07 Respiratory Rate 16 12/21/19 15:07 Blood Pressure 129/74 12/21/19 15:07 Pulse Oximetry 97 12/21/19 15:07 <Jean Claude Triana DO - Last Filed: 12/21/19 22:24> Initial Vital Signs Initial Vital Signs: Vital Signs Temperature 98.3 F 12/21/19 15:07 Pulse Rate 84 12/21/19 15:07 Respiratory Rate 16 12/21/19 15:07 Blood Pressure 129/74 12/21/19 15:07 Pulse Oximetry 97 12/21/19 15:07 Course <LUMA DysonBC - Last Filed: 12/21/19 21:46> Orders Ordered: ED Orders 12/21/19 15:15 Complete Blood Count AUTO DIFF Stat Comprehensive Metabolic Panel Stat D Dimer Stat Lactate (Lactic Acid) Stat Magnesium Stat NT-proBNP (BNP-Adult 18+) Stat Partial Thromboplastin Time Stat Procalcitonin Stat Prothrombin Time INR Stat Troponin & CK Cardiac Panel Stat 12/21/19 15:23 Consult to Respiratory Therapy Evaluate & Treat XR chest 1V Stat EKG-12 Lead Stat 12/21/19 17:51 Troponin & CK Cardiac Panel Stat 12/21/19 18:27 XR abdomen 1V Stat 12/21/19 20:28 CT chest abd pel w con Stat Metronidazole (Flagyl) 500 mg in 100 mls @ 100 mls/hr IV NOW ONE Stop: 12/21/19 22:36 Discontinued Medications Acetaminophen (Tylenol) 975 mg PO NOW ONE Stop: 12/21/19 20:31 Last Admin: 12/21/19 20:46 Dose: 975 mg Documented by: KBROTEM Ceftriaxone Sodium/Dextrose (Rocephin) 1 gm in 50 mls @ 100 mls/hr IV NOW ONE Stop: 12/21/19 22:07 Last Admin: 12/21/19 22:08 Dose: 100 mls/hr Documented by: BINDU Reevaluation(s) Reevaluation #1: Discussed with the patient his lab findings so far. Encouraged waiting for 2nd troponin to result, which would be drawn at 6:00 p.m.. Patient is very concerned about his heart given his progressive shortness of breath with activity. He states that he has not had a stress test or anything like that since his CABG in 2017. Time: 17:30 Consultations Consultation #1: Spoke with Dr Landeros from [facility] regarding the patient, two negative troponins, worsening dyspnea on exertion. Dr Landeros recommends that the patient be admitted to this facility with plan for echocardiogram and stress test. Time: 19:00 Consultation #2: Spoke with JANETH Carvajal regarding bringing the patient in as per cardiology recommendations for echo and stress test. Would like to get CT chest abdomen pelvis prior to admission. Ordered and discussed with patient. Time: 20:20 Vital Signs Vital signs: Vital Signs - 8 hr 12/21/19 15:07 12/21/19 17:32 12/21/19 17:59 Temperature 98.3 F 98.1 F Pulse Rate 84 81 81 Respiratory Rate 16 13 13 Blood Pressure 129/74 Blood Pressure [Left Arm] 109/56 L 113/66 Pulse Oximetry 97 12/21/19 19:00 Temperature Pulse Rate 97 H Respiratory Rate 22 Blood Pressure Blood Pressure [Left Arm] 115/51 L Pulse Oximetry 93 <Jean Claude Triana, - Last Filed: 12/21/19 22:24> Orders Ordered: ED Orders 12/21/19 15:15 Complete Blood Count AUTO DIFF Stat Comprehensive Metabolic Panel Stat D Dimer Stat Lactate (Lactic Acid) Stat Magnesium Stat NT-proBNP (BNP-Adult 18+) Stat Partial Thromboplastin Time Stat Procalcitonin Stat Prothrombin Time INR Stat Troponin & CK Cardiac Panel Stat 12/21/19 15:23 Consult to Respiratory Therapy Evaluate & Treat XR chest 1V Stat EKG-12 Lead Stat 12/21/19 17:51 Troponin & CK Cardiac Panel Stat 12/21/19 18:27 XR abdomen 1V Stat 12/21/19 20:28 CT chest abd pel w con Stat Metronidazole (Flagyl) 500 mg in 100 mls @ 100 mls/hr IV NOW ONE Stop: 12/21/19 22:36 Discontinued Medications Acetaminophen (Tylenol) 975 mg PO NOW ONE Stop: 12/21/19 20:31 Last Admin: 12/21/19 20:46 Dose: 975 mg Documented by: ARPAN Ceftriaxone Sodium/Dextrose (Rocephin) 1 gm in 50 mls @ 100 mls/hr IV NOW ONE Stop: 12/21/19 22:07 Last Admin: 12/21/19 22:08 Dose: 100 mls/hr Documented by: BINDU Vital Signs Vital signs: Vital Signs - 8 hr 12/21/19 15:07 12/21/19 17:32 12/21/19 17:59 Temperature 98.3 F 98.1 F Pulse Rate 84 81 81 Respiratory Rate 16 13 13 Blood Pressure 129/74 Blood Pressure [Left Arm] 109/56 L 113/66 Pulse Oximetry 97 12/21/19 19:00 Temperature Pulse Rate 97 H Respiratory Rate 22 Blood Pressure Blood Pressure [Left Arm] 115/51 L Pulse Oximetry 93 MDM - SOB/Dyspnea <SUZANNE Dyson - Last Filed: 12/21/19 21:46> Lab Data Result diagrams: 12/21/19 15:15 12/21/19 15:15 Labs: Lab Results 12/21/19 12/21/19 12/21/19 Range/Units 15:15 15:15 15:15 WBC 6.3 (4.5-11.0) X10^3/uL RBC 3.50 L (4.5-5.9) X10^6/uL Hgb 12.2 L (13.5-17.5) g/dL Hct 34.8 L (41-53) % MCV 99.6 (80-100) fL MCH 34.9 H (26-34) PG MCHC 35.1 (30-36) % RDW 16.5 H (11.6-14.8) % Plt Count 257 (150-400) X10^3/uL Neut % (Auto) Not Reportable Lymph % (Auto) Not Reportable [place] % (Auto) Not Reportable Eos % (Auto) Not Reportable Baso % (Auto) Not Reportable Lymph # (Auto) Not Reportable [place] # (Auto) Not Reportable Baso # (Auto) Not Reportable Total Counted 100 Seg Neutrophils % 66.0 (38-70) % Band Neutrophils % 15.0 H (3-7) % Lymphocytes % (Manual) 3.0 L (25-45) % Monocytes % (Manual) 13.0 H (2-11) % Eosinophils % (Manual) 2.0 (2-4) % Myelocytes % 1.0 H (-0) % Neutrophils # (Manual) 5103 (0559-8823) /uL RBC Morphology See below Polychromasia 1+ H Anisocytosis 1+ H Macrocytosis 1+ H PT 12.4 (10.1-12.7) SECONDS INR 1.1 (0.9-1.3) APTT 29 (26.4-36.2) SECONDS D-Dimer 202 (<230) ng/mL Sodium 137 (137-145) mmol/L Potassium 4.3 (3.4-5.1) mmol/L Chloride 104 (98-107) mmol/L Carbon Dioxide 25 (22-32) mmol/L BUN 18 (9-20) mg/dL Creatinine 1.05 (0.66-1.25) mg/dL Estimated GFR > 60.0 (>60) mL/min BUN/Creatinine Ratio 17.1 (6-22) Glucose 158 H (80-110) mg/dL Lactate (0.7-2.1) mmol/L Calcium 9.9 (8.4-10.2) mg/dL Magnesium 1.3 L (1.6-2.3) mg/dL Total Bilirubin 0.6 (0.2-1.3) mg/dL AST 26 (17-59) IU/L ALT 71 H (<50) IU/L Alkaline Phosphatase 71 (38-126) U/L Total Creatine Kinase 50 L (55-170) U/L CK-MB (CK-2) TNP CK-MB (CK-2) Rel Index TNP Troponin I < 0.012 (0.01-0.034) ng/mL NT-Pro-B Natriuret Pep 231 H (<125) pg/mL Total Protein 7.7 (6.3-8.2) g/dL Albumin 4.2 (3.5-5.0) g/dL Globulin 3.5 (1.7-4.1) g/dL Albumin/Globulin Ratio 1.2 (1.0-2.8) Procalcitonin (<0.5) ng/mL 12/21/19 12/21/19 12/21/19 Range/Units 15:15 15:15 17:51 WBC (4.5-11.0) X10^3/uL RBC (4.5-5.9) X10^6/uL Hgb (13.5-17.5) g/dL Hct (41-53) % MCV (80-100) fL MCH (26-34) PG MCHC (30-36) % RDW (11.6-14.8) % Plt Count (150-400) X10^3/uL Neut % (Auto) Lymph % (Auto) [place] % (Auto) Eos % (Auto) Baso % (Auto) Lymph # (Auto) [place] # (Auto) Baso # (Auto) Total Counted Seg Neutrophils % (38-70) % Band Neutrophils % (3-7) % Lymphocytes % (Manual) (25-45) % Monocytes % (Manual) (2-11) % Eosinophils % (Manual) (2-4) % Myelocytes % (-0) % Neutrophils # (Manual) (1241-9906) /uL RBC Morphology Polychromasia Anisocytosis Macrocytosis PT (10.1-12.7) SECONDS INR (0.9-1.3) APTT (26.4-36.2) SECONDS D-Dimer (<230) ng/mL Sodium (137-145) mmol/L Potassium (3.4-5.1) mmol/L Chloride (98-107) mmol/L Carbon Dioxide (22-32) mmol/L BUN (9-20) mg/dL Creatinine (0.66-1.25) mg/dL Estimated GFR (>60) mL/min BUN/Creatinine Ratio (6-22) Glucose (80-110) mg/dL Lactate 1.6 (0.7-2.1) mmol/L Calcium (8.4-10.2) mg/dL Magnesium (1.6-2.3) mg/dL Total Bilirubin (0.2-1.3) mg/dL AST (17-59) IU/L ALT (<50) IU/L Alkaline Phosphatase (38-126) U/L Total Creatine Kinase 45 L (55-170) U/L CK-MB (CK-2) TNP CK-MB (CK-2) Rel Index TNP Troponin I < 0.012 (0.01-0.034) ng/mL NT-Pro-B Natriuret Pep (<125) pg/mL Total Protein (6.3-8.2) g/dL Albumin (3.5-5.0) g/dL Globulin (1.7-4.1) g/dL Albumin/Globulin Ratio (1.0-2.8) Procalcitonin 0.13 (<0.5) ng/mL Urine Dip Bedside Urine Glucose Negative Bedside Urine Bilirubin + 1 Bedside Urine Ketone +/- 5 Urine Specific Kathleen 1.025 Bedside Urine Occult Blood - Negative Bedside Urine pH 5.5 Bedside Urine Protein ++ 100 Bedside Urine Urobilinogen +/- 1mg Bedside Urine Nitrite - Negative Bedside Urine Leukocytes - Negative Esterase Imaging Data Chest x-ray: Radiologist's Impression: [address] [place] [id number] XRay Report Signed Patient: Adrien Spicer [facility]#: [id number] : 1950Acct:[id number] Age/Sex: 69 / MDate of Service: 12/21/19 Loc: ED Accession Number: [id number] Procedure: XR chest 1V Ordering Provider: Amparo Flores- PROCEDURE: XR CHEST 1V INDICATIONS: SHORTNESS OF BREATH TECHNIQUE: One view of the chest was acquired. COMPARISON: None. FINDINGS: Surgical changes and devices: Sternal wires and right port a cath are noted. Lungs and pleura: Mild increased vascularity. Mediastinum: Mediastinal contours appear normal. Heart size is enlarged. Bones and chest wall: No suspicious bony lesions. Overlying soft tissues appear unremarkable. IMPRESSION: Mild increased vascularity suggestive of edema. Dictated by: Sada Gutierrez M.D. on 12/21/2019 at 15:51 Approved by: Sada Gutierrez M.D. on 12/21/2019 at 15:53 Abdominal x-ray: Radiologist's Impression: [address] [place] [id number] XRay Report Signed Patient: Adrien Spicer [facility]#: [id number] : 1950Acct:[id number] Age/Sex: 69 / MDate of Service: 12/21/19 Loc: ED Accession Number: [id number] Procedure: XR abdomen 1V Ordering Provider: Amparo Flores PROCEDURE: XR ABDOMEN 1V INDICATIONS: abd pain TECHNIQUE: One view of the abdomen acquired. COMPARISON: None. FINDINGS: Surgical changes and devices: Cholecystectomy. As the artifact projecting over the right femoral head. Bowel: Bowel gas pattern is nonspecific with paucity of small bowel gas. There is gas in transverse colon. Soft tissues: A portable rim calcified structure in the pelvis is probably a phlebolith. Visualized solid organ contours appear normal in size. Bones: No suspicious bony lesions. Degenerative changes in lumbar spine. IMPRESSION: Nonspecific bowel gas pattern. Dictated by: Moon Talbert M.D. on 12/21/2019 at 19:40 Approved by: Moon Talbert M.D. on 12/21/2019 at 19:42 CT scan - abdomen/pelvis: Radiologist's Impression: [place] [address] CT Scan Report Signed Patient: Adrien Spicer [facility]#: [id number] : 1950Acct:[id number] Age/Sex: 69 / MDate of Service: 12/21/19 Loc: ED Accession Number: [id number] Procedure: CT chest abd pel w con Ordering Provider: Amparo Flores PROCEDURE: CT CHEST ABD PEL W CON INDICATIONS: sob TECHNIQUE: After the administration of intravenous contrast, 5 mm thick sections acquired from the lung apices to the symphysis. 5 mm coronal and sagittal reformats were performed, with additional 7 mm MIP reformats through the lungs. For radiation dose reduction, the following was used: automated exposure control, adjustment of mA and/or kV according to patient size. COMPARISON: [facility], CR, XR CHEST 1V, 12/21/2019, 15:41. [facility], CR, XR ABDOMEN 1V, 12/21/2019, 18:44. Outside Film, CT, CT CHEST ABDOMEN PELVIS WITH CONTRAST, 09/08/2019, 8:46. FINDINGS: Image quality: Excellent. CHEST: Lungs and pleura: Bilateral patchy groundglass infiltrates upper lobes con sistent with pneumonia. There is a 5 mm nodule in the right middle lobe. Mild atelectasis in upper lobes bilaterally. No pleural effusions or pneumothorax. Central and peripheral airways appear patent and normal in caliber. Mediastinum: Heart size is normal. No pericardial effusion. Coronary artery bypass grafting. No mediastinal or hilar adenopathy by size criteria. Thoracic aorta and central pulmonary arteries are normal in size. Esophagus is normal in caliber. No hiatal hernia. Chest wall: Sternotomy. No axillary or supraclavicular adenopathy by size criteria. Thyroid gland is normal. ABDOMEN: Solid organs: Liver is normal in size and enhancement. Gallbladder is amin rgically absent. Biliary system is dilated. Pancreas enhances normally. Spleen is normal in size and enhancement. No adrenal nodules. Kidneys demonstrate normal size and enhancement, without hydronephrosis. Peritoneum and bowel: There are colonic diverticula. There is mild sigmoid thickening. Bowel loops demonstrate normal wall thickness and caliber. No free fluid or air. Nodes and vessels: No retroperitoneal or mesenteric adenopathy by size criteria. Aorta and inferior vena cava are normal in size. Moderate atherosclerosis. Miscellaneous: No ventral hernias. PELVIS: Genitourinary: Bladder is contracted. The bladder wall appears thickened. Miscellaneous: No inguinal hernias or adenopathy. Bones: No suspicious bony lesions. No vertebral body compression fractures. IMPRESSION: 1. Bilateral patchy groundglass infiltrates in upper lobes consistent with pneumonia. 2. Mild bronchiectasis in upper lobes bilaterally. 3. Diverticulosis. Mild sigmoid thickening suggesting mild diverticulitis. 4. Contracted bladder. Bladder wall appears thickened, either from cystitis or chronic bladder outlet outpouchin. 5. A 5 mm right middle lobe nodule. Please see enclosed followup recommendation. Fleischner Society criteria for SOLID lung nodule followup. Nodule size (mm)Low-risk patientHigh-risk patient?4No follow-up neededFollow-up at 12 mo; if no change, no further follow-up>[id number] CT at 12 mo; if no change, no further follow-up needed.Initial follow-up CT at 6-12 mo, then 18-24 mo if no change. >6-8Initial follow-up CT at 6-12 mo, then 18-24 mo if no change. Initial follow- up CT at 3-6 mo, then 9-12 mo and 24 mo if no change. >8Follow-up CT at 3, 9, 24 mo. Or PET and/or biopsy.Same as for low-risk pts. Dictated by: Moon Talbert M.D. on 12/21/2019 at 21:13 Approved by: Moon Talbert M.D. on 12/21/2019 at 21:29 ECG Data Attestation: I personally reviewed and interpreted this ECG as follows: Interpretation: Ventricular 82. P.r. interval 205. QRS [address] Castro [facility] Narrative Medical decision making narrative: The patient is a 69-year-old male presents with a chief complaint of worsening shortness of breath on exertion. As per Dr. Flores from [facility], suggested patient be admitted for stress test and echo. Spoke with [facility] Hospital[facility] regarding patient. Did CT chest abdomen pelvis as requested and found diverticulitis as well as bilateral upper pneumonia. Patient was resolved for coronavirus again as per her request. Dot ent was started on ceftriaxone and Flagyl as per her request. Patient admitted without incident. Of note I did discuss with the patient the finding of a right middle lobe nodule. <Jean Claude Triana, DO - Last Filed: 12/21/19 22:24> Lab Data Labs: Lab Results 12/21/19 12/21/19 12/21/19 Range/Units 15:15 15:15 15:15 WBC 6.3 (4.5-11.0) X10^3/uL RBC 3.50 L (4.5-5.9) X10^6/uL Hgb 12.2 L (13.5-17.5) g/dL Hct 34.8 L (41-53) % MCV 99.6 (80-100) fL MCH 34.9 H (26-34) PG MCHC 35.1 (30-36) % RDW 16.5 H (11.6-14.8) % Plt Count 257 (150-400) X10^3/uL Neut % (Auto) Not Reportable Lymph % (Auto) Not Reportable [place] % (Auto) Not Reportable Eos % (Auto) Not Reportable Baso % (Auto) Not Reportable Lymph # (Auto) Not Reportable [place] # (Auto) Not Reportable Baso # (Auto) Not Reportable Total Counted 100 Seg Neutrophils % 66.0 (38-70) % Band Neutrophils % 15.0 H (3-7) % Lymphocytes % (Manual) 3.0 L (25-45) % Monocytes % (Manual) 13.0 H (2-11) % Eosinophils % (Manual) 2.0 (2-4) % Myelocytes % 1.0 H (-0) % Neutrophils # (Manual) 5103 (0923-5523) /uL RBC Morphology See below Polychromasia 1+ H Anisocytosis 1+ H Macrocytosis 1+ H PT 12.4 (10.1-12.7) SECONDS INR 1.1 (0.9-1.3) APTT 29 (26.4-36.2) SECONDS D-Dimer 202 (<230) ng/mL Sodium 137 (137-145) mmol/L Potassium 4.3 (3.4-5.1) mmol/L Chloride 104 (98-107) mmol/L Carbon Dioxide 25 (22-32) mmol/L BUN 18 (9-20) mg/dL Creatinine 1.05 (0.66-1.25) mg/dL Estimated GFR > 60.0 (>60) mL/min BUN/Creatinine Ratio 17.1 (6-22) Glucose 158 H (80-110) mg/dL Lactate (0.7-2.1) mmol/L Calcium 9.9 (8.4-10.2) mg/dL Magnesium 1.3 L (1.6-2.3) mg/dL Total Bilirubin 0.6 (0.2-1.3) mg/dL AST 26 (17-59) IU/L ALT 71 H (<50) IU/L Alkaline Phosphatase 71 (38-126) U/L Total Creatine Kinase 50 L (55-170) U/L CK-MB (CK-2) TNP CK-MB (CK-2) Rel Index TNP Troponin I < 0.012 (0.01-0.034) ng/mL NT-Pro-B Natriuret Pep 231 H (<125) pg/mL Total Protein 7.7 (6.3-8.2) g/dL Albumin 4.2 (3.5-5.0) g/dL Globulin 3.5 (1.7-4.1) g/dL Albumin/Globulin Ratio 1.2 (1.0-2.8) Procalcitonin (<0.5) ng/mL 12/21/19 12/21/19 12/21/19 Range/Units 15:15 15:15 17:51 WBC (4.5-11.0) X10^3/uL RBC (4.5-5.9) X10^6/uL Hgb (13.5-17.5) g/dL Hct (41-53) % MCV (80-100) fL MCH (26-34) PG MCHC (30-36) % RDW (11.6-14.8) % Plt Count (150-400) X10^3/uL Neut % (Auto) Lymph % (Auto) [place] % (Auto) Eos % (Auto) Baso % (Auto) Lymph # (Auto) [place] # (Auto) Baso # (Auto) Total Counted Seg Neutrophils % (38-70) % Band Neutrophils % (3-7) % Lymphocytes % (Manual) (25-45) % Monocytes % (Manual) (2-11) % Eosinophils % (Manual) (2-4) % Myelocytes % (-0) % Neutrophils # (Manual) (2081-3375) /uL RBC Morphology Polychromasia Anisocytosis Macrocytosis PT (10.1-12.7) SECONDS INR (0.9-1.3) APTT (26.4-36.2) SECONDS D-Dimer (<230) ng/mL Sodium (137-145) mmol/L Potassium (3.4-5.1) mmol/L Chloride (98-107) mmol/L Carbon Dioxide (22-32) mmol/L BUN (9-20) mg/dL Creatinine (0.66-1.25) mg/dL Estimated GFR (>60) mL/min BUN/Creatinine Ratio (6-22) Glucose (80-110) mg/dL Lactate 1.6 (0.7-2.1) mmol/L Calcium (8.4-10.2) mg/dL Magnesium (1.6-2.3) mg/dL Total Bilirubin (0.2-1.3) mg/dL AST (17-59) IU/L ALT (<50) IU/L Alkaline Phosphatase (38-126) U/L Total Creatine Kinase 45 L (55-170) U/L CK-MB (CK-2) TNP CK-MB (CK-2) Rel Index TNP Troponin I < 0.012 (0.01-0.034) ng/mL NT-Pro-B Natriuret Pep (<125) pg/mL Total Protein (6.3-8.2) g/dL Albumin (3.5-5.0) g/dL Globulin (1.7-4.1) g/dL Albumin/Globulin Ratio (1.0-2.8) Procalcitonin 0.13 (<0.5) ng/mL Urine Dip Bedside Urine Glucose Negative Bedside Urine Bilirubin + 1 Bedside Urine Ketone +/- 5 Urine Specific [place] 1.025 Bedside Urine Occult Blood - Negative Bedside Urine pH 5.5 Bedside Urine Protein ++ 100 Bedside Urine Urobilinogen +/- 1mg Bedside Urine Nitrite - Negative Bedside Urine Leukocytes - Negative Esterase Discharge Plan Departure Patient Disposition: Admitted as Observation Clinical Impression: Shortness of breath, Diverticulitis Community acquired pneumonia Qualifiers: Laterality: unspecified laterality Qualified Code(s): J18.9 - Pneumonia, unspecified organism Admit Date/Time: 12/21/19 21:52 Admit Provider: Melissa Carvajal <Jean Claude Triana DO - Last Filed: 12/21/19 22:24> Cosign ED Attending Cosignature Attestation: I was immediately available in the department for consultation. This documentation has been reviewed and I agree with assessment and plan. Supervised by Jean Claude Triana DO
[2019-12-21 16:50] LABS: Neutrophils Absolute Manual 5103 /uL (3000-5900); Total Cells Counted 100
[2019-12-21 16:51] LABS: Anisocytosis 1+; Macrocytosis 1+; Polychromasia 1+
[2019-12-21 18:12] LABS: Creatine Kinase 45 U/L (55-170)
[2019-12-21 18:25] LABS: Troponin I < 0.012 ng/mL (0.01-0.034)
--- NOTE | 2019-12-21 18:27 | DI.RAD.S_ITS ---
PROCEDURE: XR ABDOMEN 1V INDICATIONS: abd pain TECHNIQUE: One view of the abdomen acquired. COMPARISON: None. FINDINGS: Surgical changes and devices: Cholecystectomy. As the artifact projecting over the right femoral head. Bowel: Bowel gas pattern is nonspecific with paucity of small bowel gas. There is gas in transverse colon. Soft tissues: A portable rim calcified structure in the pelvis is probably a phlebolith. Visualized solid organ contours appear normal in size. Bones: No suspicious bony lesions. Degenerative changes in lumbar spine. IMPRESSION: Nonspecific bowel gas pattern. Dictated by: Moon Talbert M.D. on 12/21/2019 at 19:40 Approved by: Moon Talbert M.D. on 12/21/2019 at 19:42
--- NOTE | 2019-12-21 20:28 | DI.CT.S_ITS ---
PROCEDURE: CT CHEST ABD PEL W CON INDICATIONS: sob TECHNIQUE: After the administration of intravenous contrast, 5 mm thick sections acquired from the lung apices to the symphysis. 5 mm coronal and sagittal reformats were performed, with additional 7 mm MIP reformats through the lungs. For radiation dose reduction, the following was used: automated exposure control, adjustment of mA and/or kV according to patient size. COMPARISON: [facility], CR, XR CHEST 1V, 12/21/2019, 15:41. [facility], CR, XR ABDOMEN 1V, 12/21/2019, 18:44. Outside Film, CT, CT CHEST ABDOMEN PELVIS WITH CONTRAST, 09/08/2019, 8:46. FINDINGS: Image quality: Excellent. CHEST: Lungs and pleura: Bilateral patchy groundglass infiltrates upper lobes consistent with pneumonia. There is a 5 mm nodule in the right middle lobe. Mild atelectasis in upper lobes bilaterally. No pleural effusions or pneumothorax. Central and peripheral airways appear patent and normal in caliber. Mediastinum: Heart size is normal. No pericardial effusion. Coronary artery bypass grafting. No mediastinal or hilar adenopathy by size criteria. Thoracic aorta and central pulmonary arteries are normal in size. Esophagus is normal in caliber. No hiatal hernia. Chest wall: Sternotomy. No axillary or supraclavicular adenopathy by size criteria. Thyroid gland is normal. ABDOMEN: Solid organs: Liver is normal in size and enhancement. Gallbladder is surgically absent. Biliary system is dilated. Pancreas enhances normally. Spleen is normal in size and enhancement. No adrenal nodules. Kidneys demonstrate normal size and enhancement, without hydronephrosis. Peritoneum and bowel: There are colonic diverticula. There is mild sigmoid thickening. Bowel loops demonstrate normal wall thickness and caliber. No free fluid or air. Nodes and vessels: No retroperitoneal or mesenteric adenopathy by size criteria. Aorta and inferior vena cava are normal in size. Moderate atherosclerosis. Miscellaneous: No ventral hernias. PELVIS: Genitourinary: Bladder is contracted. The bladder wall appears thickened. Miscellaneous: No inguinal hernias or adenopathy. Bones: No suspicious bony lesions. No vertebral body compression fractures. IMPRESSION: 1. Bilateral patchy groundglass infiltrates in upper lobes consistent with pneumonia. 2. Mild bronchiectasis in upper lobes bilaterally. 3. Diverticulosis. Mild sigmoid thickening suggesting mild diverticulitis. 4. Contracted bladder. Bladder wall appears thickened, either from cystitis or chronic bladder outlet outpouchin. 5. A 5 mm right middle lobe nodule. Please see enclosed followup recommendation. Fleischner Society criteria for SOLID lung nodule followup. Nodule size (mm)Low-risk patientHigh-risk patient?4No follow-up neededFollow-up at 12 mo; if no change, no further follow-up>3-6Pnyaec-nt CT at 12 mo; if no change, no further follow-up needed.Initial follow-up CT at 6-12 mo, then 18-24 mo if no change. >6-8Initial follow-up CT at 6-12 mo, then 18-24 mo if no change. Initial follow-up CT at 3-6 mo, then 9-12 mo and 24 mo if no change. >8Follow-up CT at 3, 9, 24 mo. Or PET and/or biopsy.Same as for low-risk pts. Dictated by: Moon Talbert M.D. on 12/21/2019 at 21:13 Approved by: Moon Talbert M.D. on 12/21/2019 at 21:29
[2019-12-21] MEDS: ACETAMINOPHEN 325 MG TABLET 975 MG PO (20:46)
[2019-12-21] MEDS: CEFTRIAXONE 1 GM/50 ML FROZ.PIGGY IV (22:08)
[2019-12-21 23:12] LABS: COVID19 -Nasal RAPID Negative (Negative)
--- NOTE | 2019-12-21 23:13 | PC.NURSE ---
Patient arrived from ER A/O x4, some complaints of headache and a dull pain when inhaling. Patient belongings including wallet in room. Patient's home meds at bedside.
[2019-12-22] VITALS (13 sets, daily range): BP systolic 104–165; BP diastolic 59–99; PULSE 74–89; RESP 16–21; TEMP 36.1–36.9; O2SAT 92–97
[2019-12-22] MEDS: metroNIDAZOLE 500 MG/100 ML PIGGYBACK 100 MG IV (00:20)
[2019-12-22] MEDS: AZITHROMYCIN 250 MG TABLET 500 MG PO (01:22)
--- NOTE | 2019-12-22 05:08 | P.HP_ITS ---
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 He denies fevers sweats or chills, he has had a weight gain of about 40 lb, he states that he has chronic blurry eyes for which he goes to an criminal justice lawyer for, and endorses having had nausea and vomiting. Did denies muscle weakness, were rashes, unilateral weakness, but d oes endorse having significant anxiety and depression after being ?locked up? with the stay at home orders. He was to have started on a dexamethasone trial for a mass that was found on his upper right frontal lobe area of his brain, as it was causing him headaches. He discontinued taking the dexamethasone because of other side effects that he had and now he states his headaches are coming back. Dr. 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 In the emergency department they did swab him for COVID-19 which resulted is being negative. He was noted to have bilateral upper lobe pneumonia with ground-glass opacities, diverticulitis, and a contracted bladder. Patient's drainage retic peptide was 240 and his troponin was negative. Patient History Medical History (Updated 12/22/19 @ 05:21 by JANETH De Jesus) Allergies (Chronic) Ankle pain (Chronic) Chronic back pain (Chronic) Fractures (Resolved) Hepatitis (Chronic) Liver disease (Chronic) Prostate cancer (Chronic) Surgical History (Updated 12/22/19 @ 05:17 by JANETH De Jesus) History of heart bypass surgery (Resolved ~2017) History of prostatectomy (Acute) Family & Social History Family History Father Cancer Diabetes mellitus History of heart disease Hypertension Hyperlipidemia Mother Diabetes mellitus History of heart disease Brother Diabetes mellitus Sister Cancer Diabetes mellitus Social History: household members family Prior Living Arrangements RV Safety & Behavioral: Feels Safe in Current Yes Environment Been Physically Hurt or No Threatened By a Person Suicidal Ideation Description None Tobacco & Substance use: Smoking Status Former smoker alcohol intake frequency 0-2 drinks per day Substance Use Type marijuana Meds Home Medications and Allergies Home Medications Medication Instructions Recorded Confirmed Type albuterol sulfate 90 mcg/actuation 2 puff INHALATION Q6H PRN 06/17/19 12/21/19 History aerosol inhaler aspirin 81 mg tablet,delayed 81 mg PO DAILY 06/17/19 12/21/19 History release atorvastatin 40 mg tablet 40 mg PO DAILY 06/17/19 12/21/19 History carvedilol 6.25 mg tablet 6.25 mg PO BID 06/17/19 12/21/19 History escitalopram oxalate 10 mg tablet 10 mg PO DAILY 06/17/19 12/21/19 History lisinopril 10 mg tablet 10 mg PO DAILY 06/17/19 12/21/19 History omeprazole 20 mg capsule,delayed 20 mg PO DAILY 06/17/19 12/21/19 History release cetirizine [Allergy Relief 10 mg PO DAILY PRN 12/21/19 12/21/19 History (cetirizine)] dexamethasone 1 mg PO BID 12/21/19 12/21/19 History Allergies Allergy/AdvReac Type Severity Reaction Status Date / Time codeine Allergy Vomiting Verified 12/21/19 15:19 Review of Systems Review of Systems ROS: Yes All systems reviewed with the patient and are negative except as otherwise documented Exam Vital Signs (past 8 hours): - 12/21/19 22:06 12/21/19 22:30 12/21/19 22:53 Temperature 98 F 97.9 F Pulse Rate 80 80 84 Respiratory Rate 24 21 20 Blood Pressure 132/74 Blood Pressure [Left Arm] 126/80 112/71 Pulse Oximetry 96 94 94 12/22/19 00:30 12/22/19 00:55 Temperature 98.1 F Pulse Rate 89 Respiratory Rate 20 Blood Pressure 104/63 Blood Pressure [Left Arm] Pulse Oximetry 95 95 Oxygen Delivery Method Room Air,Nasal Cannula Narrative Exam Narrative: Gen: Alert, oriented, well-nourished 69 y.o. male, mildly HEENT: normocephalic, atraumatic, conjunctiva clear, sclera non-icteric, oral mucosa pink and moist Neck: supple, full ROM, no JVD Resp: Lungs CTA, non-labored breathing CV: RRR, no murmur or rubs Abd: Obese, distended, soft, non-tender, normoactive BTs Skin: no lesions or rashes, dry and intact Neuro: Alert and oriented X 4 w/no focal deficits Extremities: moves all 4 extremities, is ambulatory, negative Bravo?s sign Psyche: normal mood and affect. Objective Labs Result Diagrams: 12/21/19 15:15 12/21/19 15:15 Labs: Laboratory Results - last 24 hr 12/21/19 12/21/19 12/21/19 15:15 15:15 15:15 WBC 6.3 RBC 3.50 L Hgb 12.2 L Hct 34.8 L MCV 99.6 MCH 34.9 H MCHC 35.1 RDW 16.5 H Plt Count 257 Neut % (Auto) Not Reportable Lymph % (Auto) Not Reportable [place] % (Auto) Not Reportable Eos % (Auto) Not Reportable Baso % (Auto) Not Reportable Lymph # (Auto) Not Reportable [place] # (Auto) Not Reportable Baso # (Auto) Not Reportable Total Counted 100 Seg Neutrophils % 66.0 Band Neutrophils % 15.0 H Lymphocytes % (Manual) 3.0 L Monocytes % (Manual) 13.0 H Eosinophils % (Manual) 2.0 Myelocytes % 1.0 H Neutrophils # (Manual) 5103 RBC Morphology See below Polychromasia 1+ H Anisocytosis 1+ H Macrocytosis 1+ H PT 12.4 INR 1.1 APTT 29 D-Dimer 202 Sodium 137 Potassium 4.3 Chloride 104 Carbon Dioxide 25 BUN 18 Creatinine 1.05 Estimated GFR > 60.0 BUN/Creatinine Ratio 17.1 Glucose 158 H Lactate Calcium 9.9 Magnesium 1.3 L Total Bilirubin 0.6 AST 26 ALT 71 H Alkaline Phosphatase 71 Total Creatine Kinase 50 L CK-MB (CK-2) TNP CK-MB (CK-2) Rel Index TNP Troponin I < 0.012 NT-Pro-B Natriuret Pep 231 H Total Protein 7.7 Albumin 4.2 Globulin 3.5 Albumin/Globulin Ratio 1.2 Procalcitonin COVID-19 PCR 12/21/19 12/21/19 12/21/19 15:15 15:15 17:51 WBC RBC Hgb Hct MCV MCH MCHC RDW Plt Count Neut % (Auto) Lymph % (Auto) [place] % (Auto) Eos % (Auto) Baso % (Auto) Lymph # (Auto) [place] # (Auto) Baso # (Auto) Total Counted Seg Neutrophils % Band Neutrophils % Lymphocytes % (Manual) Monocytes % (Manual) Eosinophils % (Manual) Myelocytes % Neutrophils # (Manual) RBC Morphology Polychromasia Anisocytosis Macrocytosis PT INR APTT D-Dimer Sodium Potassium Chloride Carbon Dioxide BUN Creatinine Estimated GFR BUN/Creatinine Ratio Glucose Lactate 1.6 Calcium Magnesium Total Bilirubin AST ALT Alkaline Phosphatase Total Creatine Kinase 45 L CK-MB (CK-2) TNP CK-MB (CK-2) Rel Index TNP Troponin I < 0.012 NT-Pro-B Natriuret Pep Total Protein Albumin Globulin Albumin/Globulin Ratio Procalcitonin 0.13 COVID-19 PCR 12/21/19 22:11 WBC RBC Hgb Hct MCV MCH MCHC RDW Plt Count Neut % (Auto) Lymph % (Auto) [place] % (Auto) Eos % (Auto) Baso % (Auto) Lymph # (Auto) [place] # (Auto) Baso # (Auto) Total Counted Seg Neutrophils % Band Neutrophils % Lymphocytes % (Manual) Monocytes % (Manual) Eosinophils % (Manual) Myelocytes % Neutrophils # (Manual) RBC Morphology Polychromasia Anisocytosis Macrocytosis PT INR APTT D-Dimer Sodium Potassium Chloride Carbon Dioxide BUN Creatinine Estimated GFR BUN/Creatinine Ratio Glucose Lactate Calcium Magnesium Total Bilirubin AST ALT Alkaline Phosphatase Total Creatine Kinase CK-MB (CK-2) CK-MB (CK-2) Rel Index Troponin I NT-Pro-B Natriuret Pep Total Protein Albumin Globulin Albumin/Globulin Ratio Procalcitonin COVID-19 PCR Negative Assessment & Plan Assessment & Plan narrative: Adrien Spicer will be admitted for treatment of a bilateral upper lobe pneumonia, diverticulitis, and questionable CHF exacerbation. Shortness of breath in the setting of Bilateral upper lobe pneumonia, acute, present on admission -patient has been started on IV ceftriaxone 1 g daily and oral azithromycin 500 mg p.o. daily -consider changing IV ceftriaxone with Levaquin to cover both pneumonia and diverticulitis -albuterol MDI to treat any symptoms of shortness of breath Diverticulitis, acute, present on admission -he started on Flagyl 500 mg IV q.i.d. Shortness of breath concerning for CHF exacerbation -He has been ordered for an echocardiogram and a nuclear stress test for him in the morning -troponin x2 have been normal CAD, chronic, present on admission -continue home dose of carvedilol 6.25 after his stress test -continue lisinopril 10 mg p.o. daily Hyperlipidemia, chronic, present on admission -continue home dose of atorvastatin 40 mg p.o. daily GERD, chronic, present on admission -Continue home dose of omeprazole 20 mg p.o. daily Depression, chronic, present on admission -continue home dose of Lexapro 10 mg p.o. daily Consults: none consult and involvement is appreciated. Patient is placed into an inpatient bed. Stay is likely to exceed 2 midnights. FEN: IV saline lock, [], BMP in the am. VTE prophylaxis: Bilateral SCDs, Enoxaparin 40 mg subQ daily Dispo: Probable discharge to home COVID-19 COVID-19 status: Negative Result date/Date tested (Pos, Neg/Pending): 12/21/19 Quality VTE Deep Vein Thrombosis/Pulmonary Embolism Present on Admission: No
[2019-12-22 05:22] LABS: Hematocrit 31.5 % (41-53); Mean Corpuscular HGB Conc 34.9 % (30-36); Mean Corpuscular Hemoglobin 34.5 PG (26-34); Platelet Count 218 X10^3/uL (150-400); Red Blood Cell Count 3.18 X10^6/uL (4.5-5.9); Red Cell Distribution Width 16.8 % (11.6-14.8); White Blood Cell Count 5.2 X10^3/uL (4.5-11.0)
[2019-12-22 05:27] LABS: Alanine Aminotransferase 54 IU/L (<50); Albumin 3.8 g/dL (3.5-5.0); Albumin Globulin Ratio 1.3 (1.0-2.8); Alkaline Phosphatase 56 U/L (38-126); Aspartate Aminotransferase 22 IU/L (17-59); BUN Creatinine Ratio 18.3 (6-22); Bilirubin Total 0.4 mg/dL (0.2-1.3); Blood Urea Nitrogen 17 mg/dL (9-20); Calcium 9.7 mg/dL (8.4-10.2); Carbon Dioxide 27 mmol/L (22-32); Chloride 101 mmol/L (98-107); Estimated Glomerular Filt Rate > 60.0 mL/min (>60); Glucose 118 mg/dL (80-110); HEMOLYSIS < 15 (0-50); Magnesium 1.3 mg/dL (1.6-2.3); Potassium 3.9 mmol/L (3.4-5.1); Sodium 137 mmol/L (137-145); Total Protein 6.8 g/dL (6.3-8.2)
[2019-12-22 05:35] LABS: Add Manual Diff / Slide Review YES
[2019-12-22 05:54] LABS: Anisocytosis 1+; Neutrophils Absolute Manual 4108 /uL (3000-5900); Polychromasia 1+; Total Cells Counted 100
[2019-12-22 05:55] LABS: Macrocytosis 1+
--- NOTE | 2019-12-22 06:22 | PC.NURSE ---
Guest Services Representative Note-Patient was awake most of the night, A/Ox4, slightly impulsive but steady, frequently voiding small amounts concentrated urine. Abx given as ordered. COVID-19 returned negative
[2019-12-22] MEDS: PANTOPRAZOLE 20 MG TABLET PO (06:52)
--- NOTE | 2019-12-22 08:12 | DI.NM.S_ITS ---
PROCEDURE: MO CROW PERF SPECT REST & STR Rest and pharmacological stress myocardial perfusion SPECT with gated imaging and ejection fraction RADIOPHARMACEUTICAL: 27.5 mCi Tc-99m tetrafosmin IV at rest and 24.8 mCi Tc-99m tetrafosmin IV at peak effect of pharmacological stress. [id number] was performed. INDICATIONS: r/o ischemia TECHNIQUE: Radiopharmaceutical was injected at peak stress test, and also at rest. SPECT images were obtained. SPECT myocardial perfusion images were displayed in short axis, horizontal long axis, and vertical long axis views. Gated images were reviewed using ClassifEye software. COMPARISON: [facility], [place], MO CROW PERF SPECT R&S PHARM, 01/18/2019, 8:54. CARDIAC STRESS: A pharmacologic stress test was performed under the supervision of an attending staff, using an infusion of Lexiscan . Hemodynamic data: There is normal blood pressure and heart rate response to pharmacologic stress. Symptoms: The patient denied anginal chest pain. Aminophylline: not used. EKG: No diagnostic changes of ischemia; isolated PACs and PVCs. FINDINGS: Raw data: There is good myocardial uptake of radiotracer. No significant motion artifacts. Sgzm-nr-[id number] ratio is 0.48 (normal is less than 0.38 for tetrafosmin tracer). Left ventricle function: Gated images demonstrate hypokinesis of the apical to mid inferior wall and akinesias of the basal inferior wall inferior wall. No other segmental wall motion abnormalities. No transient ischemic dilation; TID is 0.96 (normal less than 1.3). Left ventricle resting end diastolic volume is 110 mL. Left ventricle stress ejection fraction is >75% ; normal range is above 45%. Myocardial perfusion: There is a moderately large, severe perfusion defect extending from basal inferior and inferoseptal wall to mid-inferior and inferoseptal wall and apical inferior wall on both stress and rest images. No prone images were obtained. No other fixed or reversible perfusion defects. 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 The defect extends to the apex with less severity and no prone imaging was done. Part of this could be diaphragmatic attenuation but the basal segment is scarred. -No evidence of ischemia. -SSS 15, SRS 15. Dictated by: Approved by: Gavin Thomas M.D. on 12/23/2019 at 14:08 Gavin Thomas M.D. on 12/23/2019 at 13:27
[2019-12-22] MEDS: ACETAMINOPHEN 325 MG TABLET 650 MG PO ×3 (08:36→22:07)
[2019-12-22] MEDS: MAGNESIUM SULFATE 2 GM/50 ML PIGGYBACK IV (08:36)
[2019-12-22] MEDS: ATORVASTATIN 20 MG TABLET 40 MG PO (08:36)
[2019-12-22] MEDS: ASPIRIN EC 81 MG TABLET PO (08:36)
[2019-12-22] MEDS: lisinopriL 10 MG TABLET PO (08:36)
[2019-12-22] MEDS: ENOXAPARIN 40 MG/0.4 ML SYRINGE SUBCUT (08:37)
[2019-12-22] MEDS: SODIUM CHLORIDE 0.9% FLUSH 10 ML IV ×2 (08:38→20:45)
[2019-12-22] MEDS: ESCITALOPRAM 10 MG TABLET PO (08:38)
--- NOTE | 2019-12-22 10:00 | DI.ECHO.S_ITS ---
[facility]---------+ [facility] +---------+ : : [address] : : : [place], [place] : : : : [id number] : : : : Phone: [phone]+ Echocardiogram Report + + :Name: JONNY HELLER Study Date: 12/22/2019 Height: 69 in : :[facility] Weight: 244 lb : : Gender: Male BSA: 2.2 m2 : :: 1950 Age: 69 yrs BP: 132/74 mmHg: :Reason For Study: shortness of breath : :Ordering Physician: Stu : :Hospitalist Performed By: Caitie Berger : :Referring: ADIS HERNANDEZ : + + Interpretation Summary Left ventricular systolic function appears normal with the ejection fraction estimated at 60 to 65% without any focal wall motion abnormality although there is a slight dyssynchronous contraction pattern suggestive of a mild conduction abnormality. Systolic function appears to be slightly more dynamic compared to the previous study. Diastolic function is likely normal with normal filling pressures. The right ventricle is not well seen but appears to be borderline enlarged with systolic function at the lower limits of normal but likely unchanged from the previous study. Pulmonary artery pressures cannot be estimated but CVP appears to be 3 mmHg and likely slightly lower compared to the previous exam. Both atria are normal in size and are significantly smaller compared to the previous exam. There are no significant valvular abnormalities with reduction in the degree of tricuspid regurgitation seen on the previous exam. The aortic arch measures moderately enlarged at 3.9 cm. This was not able to be measured on the previous study. The patient was in sinus rhythm at 75 to 80 bpm during the study which is considerably faster compared to the previous study. Procedure: A two-dimensional transthoracic echocardiogram with color flow and Doppler was performed. The study quality was technically adequate. Apical window if off axis. The patient was in normal sinus rhythm during the exam. The patient was in sinus rhythm with heart rates between 75-80 bpm during the exam. This is slightly faster compared to the previous study. Left Ventricle: The left ventricle is normal in size, wall thickness, and systolic function without any focal wall motion abnormalities. The ejection fraction is estimated to be 60-65%. This is slightly more dynamic compared to the previous study. Diastolic parameters suggest probable normal left ventricular diastolic function and normal filling pressures. Right Ventricle: The right ventricle is not well visualized. The right ventricle is borderline dilated. Right ventricular systolic function is at the lower limits of normal. This is unchanged compared to the previous study. Atria: Both atria are normal in size. Both atria have significantly decreased in size since the prior echo exam. The interatrial septum is intact with no evidence for an atrial septal defect. Mitral Valve: The mitral valve is normal in structure and function. There is trace mitral regurgitation. Aortic Valve: The aortic valve is trileaflet. The aortic valve is slightly calcified. The aortic valve opens well. There is no aortic valve stenosis. No aortic regurgitation is present. Tricuspid Valve: The tricuspid valve is normal in structure and function. No tricuspid regurgitation. Pulmonary artery pressures cannot be estimated because of the lack of a measurable TR jet velocity but the IVC suggests a CVP of around 3 mmHg. Pulmonic Valve: The pulmonic valve is not well seen, but is grossly normal. There is a trace or physiologic amount of pulmonic regurgitation. There is no significant valvular heart disease. Great Vessels: The aortic root is borderline dilated. The ascending aorta could not be visualized. The aortic arch is moderately enlarged. The IVC is of normal diameter and collapses greater than 50% with a sniff. This suggests a low right atrial pressure of 3 mm Hg. Pericardium/ Pleura There is no pericardial effusion. There is no pleural effusion. MMode/2D Measurements & Calculations LVIDd: 4.3 cm LVOT diam: 2.3 cm LVIDs: 3.1 cm Ao root diam: 4.0 cm FS: 28.3 % Ao Arch Diam (Prox Trans): 3.9 cm EPSS: 0.85 cm IVSd: 0.98 cm LVPWd: 1.1 cm LV sanchez. diameter/BSA (cm/m^2): 1.9 LV sys. diameter/BSA (cm/m^2): 1.4 LA A2 area: 14.4 cm2 RA long axis: 5.1 cm LA A4 area: 14.2 cm2 RA area: 16.4 cm2 LA length (vol): 4.6 cm RA vol: 44.6 ml LA vol: 38.0 ml RA : 19.8 ml/m2 LA vol index: 16.9 ml/m2 IVC diam: 2.3 cm TAPSE: 2.0 cm Doppler Measurements & Calculations Ao V2 max: 139.0 cm/sec LVOT Max Irma: 101.4 cm/sec Ao V2 mean: 96.8 cm/sec LV V1 max P.1 mmHg Ao max P.7 mmHg LV V1 VTI: 20.4 cm Ao mean P.2 mmHg BONNIE(I,D): 3.3 cm2 Ao V2 VTI: 25.1 cm BONNIE(V,D): 3.0 cm2 sev ratio: 0.82 BONNIE indexed to BSA (cm^2/m^2): 1.5 MV E max irma: 63.2 cm/sec SV(LVOT): 83.6 ml MV A max irma: 72.3 cm/sec MV E/A: 0.87 Med Peak E' Irma: 7.5 cm/sec E/E' med: 8.4 Lat Peak E' Irma: 11.1 cm/sec E/E' lat: 5.7 E/e' average: 7.1 MV dec time: 0.30 sec Reading Physician:MARLEE
--- NOTE | 2019-12-22 13:40 | CM.DANOTE ---
Patient is a 69 year old male who was admitted on 12/21/19 for SOB with exertion. Pt has [facility] and [facility] for insurance and his PCP is Dr. Hunter Ferraro. EMR was reviewed. Per MD, pt admitted to rule out M.I. and to have an Echo today likely and scans shows pneumonia and not medically stable to d/c yet today. COVID 19 negative. SW met bedside with pt and explained role and he confirms that he lives in [place] on his Dtr/DPOA [place]'s property near their home in an RV for the past two years since he was diagnosed with prostrate cancer and [facility] and [facility]. Pt currently not receiving any tx and just has close follow up appointments. Pt's [employer]isher Plasticoater is Dr. Landeros. Pt states he has not brought a copy of DPOA pwk to the hospital but plans to have Dtr bring a copy at discharge. Pt states he is still quite independent with ADL's and sees his grandkids and Dtr every day but has noticed with the pneumonia he fatigues quickly. Pt denies any hx of HH or SNF at this time. Pt preference is to d/c home and states Dtr is available for transport home when he is stable to d/c and states he already feel much better. Plan: SW to follow closely to determine if pt safe for d/c back home near his adult Dtr and possible PT eval vs ambulate halls with RN to determine any further identified discharge planning needs. IRAIS Mario Discharge Planning/Care Management CM Discharge Assessment Start: 12/22/19 13:38 Freq: Status: Active Protocol: Document 12/22/19 13:38 BF (Rec: 12/22/19 13:40 [id number]) Discharge Planning Assessment Assigned Policy Officer IRAIS Olea DPOA/Assigned Designee Name Rafael Bethea Contact Information [phone] Advance Directives? Yes Advance Directives on File No: Pt plans to have fam bring copy History Provided By Patient,Medical Record Has Patient been admitted in last 30 No days? Prior Living Arrangements RV Household Members family Type of transporation used prior to Relies on Others admit Comment Lives in [place] on Dtr [place]'s property near their home in an RV for the past 2 years Independent with ADL's Yes Is patient alert and oriented? Yes Needs Assistance With Home Chores / Shopping Caregiver for Another No Patient/Family Preference Home with Home Health Barriers to Discharge No Discharge Plan Home with Home Health Transportation Arrangement Dtr available for transport at d/c Additional Comment Waiting for possible PT eval or ambulate halls with RN Whiteboard Updated in Patient Room with Yes name and ext. # of Policy Officer Review Status In Process Please Provide Date Initial DC 12/22/19 Assessment Was Performed Next Review Type Continued Stay Review
--- NOTE | 2019-12-22 15:51 | PM.TREADMILL ---
Cardiac Stress Test Report Referral & Results Date Patient Seen: 12/22/19 Time Patient Seen: 15:52 Requesting provider: Melissa Carvajal Indication: dyspnea with exertion Rest ECG: sinus rhythm with 1st degree AVB Procedure Note: After Lexiscan injection had minimal dyspnea, no chest discomfort No significant ST changes after Lexiscan injection No ectopy No reversal agents needed Impression: Normal Lexiscan stress test Please note: Actual ECG tracings can be found in the PACS system.
--- NOTE | 2019-12-22 18:11 | P.PN_ITS ---
Subjective Subjective Date Patient Seen: 12/22/19 Interval history: Patient is admitted to the hospital for shortness of breath. He was found to have bilateral pneumonia and acute diverticulitis. Patient reports his resting shortness of breath is better at rest. He feels like his abdomen is more bloated. He also complains of right quadrant abdominal pain. He notes loose stools but no diarrhea. The patient had the first phase of his stress test and will need a resting study tomorrow. Exam Vital Signs (past 8 hours): - 12/22/19 12:00 12/22/19 12:13 12/22/19 16:30 Temperature 97.6 F 97.7 F Pulse Rate 78 79 Respiratory Rate 16 21 Blood Pressure 122/59 L 131/62 Pulse Oximetry 95 95 97 12/22/19 16:44 Temperature Pulse Rate Respiratory Rate Blood Pressure Pulse Oximetry 95 Oxygen Delivery Method Room Air Oxygen Flow Rate 0 Narrative Exam Narrative: Pleasant Ill appearing male Lungs: decreased breath sounds bilaterally with scattered rhonchi CV: RRR nl Sl S2 Abd: distended, nomoactive bowel tones, tender in right lower quadrant, no palpaable masses, no rebound tenderness Ext: no edema Objective Labs Result Diagrams: 12/22/19 04:43 12/22/19 04:43 Labs: Laboratory Results - last 24 hr 12/21/19 12/21/19 12/22/19 17:51 22:11 04:43 WBC 5.2 RBC 3.18 L Hgb 11.0 L Hct 31.5 L MCV 99.0 MCH 34.5 H MCHC 34.9 RDW 16.8 H Plt Count 218 Neut % (Auto) Not Reportable Lymph % (Auto) Not Reportable [place] % (Auto) Not Reportable Eos % (Auto) Not Reportable Baso % (Auto) Not Reportable Lymph # (Auto) Not Reportable [place] # (Auto) Not Reportable Baso # (Auto) Not Reportable Total Counted 100 Seg Neutrophils % 73.0 H Band Neutrophils % 6.0 Lymphocytes % (Manual) 6.0 L Monocytes % (Manual) 11.0 Eosinophils % (Manual) 2.0 Metamyelocytes % 2.0 H Neutrophils # (Manual) 4108 RBC Morphology See below Polychromasia 1+ H Anisocytosis 1+ H Macrocytosis 1+ H Sodium Potassium Chloride Carbon Dioxide BUN Creatinine Estimated GFR BUN/Creatinine Ratio Glucose Calcium Magnesium Total Bilirubin AST ALT Alkaline Phosphatase Total Creatine Kinase 45 L CK-MB (CK-2) TNP CK-MB (CK-2) Rel Index TNP Troponin I < 0.012 Total Protein Albumin Globulin Albumin/Globulin Ratio COVID-19 PCR Negative 12/22/19 04:43 WBC RBC Hgb Hct MCV MCH MCHC RDW Plt Count Neut % (Auto) Lymph % (Auto) [place] % (Auto) Eos % (Auto) Baso % (Auto) Lymph # (Auto) [place] # (Auto) Baso # (Auto) Total Counted Seg Neutrophils % Band Neutrophils % Lymphocytes % (Manual) Monocytes % (Manual) Eosinophils % (Manual) Metamyelocytes % Neutrophils # (Manual) RBC Morphology Polychromasia Anisocytosis Macrocytosis Sodium 137 Potassium 3.9 Chloride 101 Carbon Dioxide 27 BUN 17 Creatinine 0.93 Estimated GFR > 60.0 BUN/Creatinine Ratio 18.3 Glucose 118 H Calcium 9.7 Magnesium 1.3 L Total Bilirubin 0.4 AST 22 ALT 54 H Alkaline Phosphatase 56 Total Creatine Kinase CK-MB (CK-2) CK-MB (CK-2) Rel Index Troponin I Total Protein 6.8 Albumin 3.8 Globulin 3.0 Albumin/Globulin Ratio 1.3 COVID-19 PCR Assessment & Plan Assessment & Plan narrative: Shortness of breath in the setting of Bilateral upper lobe pneumonia, acute, present on admission -patient has been started on IV ceftriaxone 1 g daily and oral azithromycin 500 mg p.o. daily -consider changing IV ceftriaxone with Levaquin to cover both pneumonia and diverticulitis -albuterol MDI to treat any symptoms of shortness of breath - Echo reveals normal Ejection fraction with no wall motion abnormalities -bnp 230 -Will change antibiotics to Zosyn, d/c Ceftriaxone and Azithyromycin,Flagyl Diverticulitis, acute, present on admission -D/C flagyl -Zosyn -NPO -IV hydration Shortness of breath concerning for CHF exacerbation -He has been ordered for an echocardiogram and a nuclear stress test for him in the morning -troponin x2 have been normal -Doubt CHF, will start fluids and follow, Echo nl, bnp nl, Chest Xray likley pneumonia CAD, chronic, present on admission -continue home dose of carvedilol 6.25 after his stress test -continue lisinopril 10 mg p.o. daily -resting stress test tomorrow Hyperlipidemia, chronic, present on admission -continue home dose of atorvastatin 40 mg p.o. daily GERD, chronic, present on admission -Continue home dose of omeprazole 20 mg p.o. daily Depression, chronic, present on admission -continue home dose of Lexapro 10 mg p.o. daily Consults: none consult and involvement is appreciated. Quality VTE Deep Vein Thrombosis/Pulmonary Embolism Present on Admission: No
[2019-12-22] MEDS: KCL 20 MEQ IN NS 1,000 ML 100 MEQ IV (18:20)
[2019-12-22] MEDS: PIPERACILLIN-TAZO 3.375 GM/50 ML FROZ.PIGGY IV (18:20)
[2019-12-22] MEDS: LORATADINE 10 MG TABLET PO (20:44)
[2019-12-23] VITALS (9 sets, daily range): BP systolic 113–146; BP diastolic 64–75; PULSE 71–86; RESP 15–26; TEMP 36.2–36.7; O2SAT 92–97
[2019-12-23] MEDS: PIPERACILLIN-TAZO 3.375 GM/50 ML FROZ.PIGGY IV ×3 (03:14→18:38)
[2019-12-23] MEDS: KCL 20 MEQ IN NS 1,000 ML 100 MEQ IV (04:33)
[2019-12-23 05:19] LABS: Alanine Aminotransferase 46 IU/L (<50); Albumin 3.8 g/dL (3.5-5.0); Albumin Globulin Ratio 1.3 (1.0-2.8); Alkaline Phosphatase 55 U/L (38-126); Aspartate Aminotransferase 24 IU/L (17-59); Bilirubin Total 0.7 mg/dL (0.2-1.3); Blood Urea Nitrogen 13 mg/dL (9-20); Calcium 9.6 mg/dL (8.4-10.2); Carbon Dioxide 27 mmol/L (22-32); Chloride 104 mmol/L (98-107); Estimated Glomerular Filt Rate > 60.0 mL/min (>60); Glucose 123 mg/dL (80-110); HEMOLYSIS < 15 (0-50); Potassium 4.5 mmol/L (3.4-5.1); Sodium 137 mmol/L (137-145); Total Protein 6.8 g/dL (6.3-8.2)
[2019-12-23] MEDS: PANTOPRAZOLE 20 MG TABLET PO (06:03)
[2019-12-23] MEDS: ACETAMINOPHEN 325 MG TABLET 650 MG PO ×2 (06:39→11:31)
--- NOTE | 2019-12-23 06:46 | PC.NURSE ---
Pt has frequent small voids; hx prostate ca Did not sleep much due to voiding frequently. Fine crackles noted posteriorly; SOB on exertion 1p SBA at bedside. Tele: NSR Had no caffeine overnight in case pt gets stress today Tylenol given for BROWNING this morning
[2019-12-23] MEDS: ENOXAPARIN 40 MG/0.4 ML SYRINGE SUBCUT (08:36)
[2019-12-23] MEDS: ASPIRIN EC 81 MG TABLET PO (08:38)
[2019-12-23] MEDS: ESCITALOPRAM 10 MG TABLET PO (08:38)
[2019-12-23] MEDS: ATORVASTATIN 20 MG TABLET 40 MG PO (08:38)
[2019-12-23] MEDS: lisinopriL 10 MG TABLET PO (08:38)
--- NOTE | 2019-12-23 10:14 | PC.NURSE ---
Addendum entered by Eden Stout R.N. 12/23/19 11:37: Pt back from NM test at 1120 and settled back into chair in room. C/O 8/10 right side headache. PRN Tylenol given at 1135 per pt request. Pt given ice water and plans to have scheduled Coreg with lunch. Addendum entered by Eden Stout R.N. 12/23/19 10:46: Pt left unit at 1045 via wheelchair for 2nd part of NM test Original Note: Day Shift- Pt sitting up in chair at shift change. NPO for 2nd part of NM stress test/rest test. Per NM, plan for injection at 1100 and scan at 1130, pt aware. Pt A&OX4, able to make his needs known using call light, calls for assistance to BR, SBA. C/O 4/10 tenderness to lower abd with palpation. No pain if not touching this area. Abd bloating, semi soft, pt states his abd size is not his normal. AE diminished throughout lung [place], no wheezing, crackles heard with auscultation. Pt does state feeling SOB when ambulating after being in BR.
[2019-12-23] MEDS: SODIUM CHLORIDE 0.9% FLUSH 10 ML IV (11:33)
[2019-12-23] MEDS: carvediloL 6.25 MG TABLET PO ×2 (12:39→20:46)
--- NOTE | 2019-12-23 15:37 | PM.PN.1 ---
Subjective Subjective Date Patient Seen: 12/23/19 Interval history: Patient reports that his breathing is better. However he is markedly short of breath with minimal activity. He has chest tightness, but no wheezing or rhonchi. He denies any chest pain per se. Patient did have a stress test today which was negative for any evidence of acute ischemia. Exam Vital Signs (past 8 hours): - 12/23/19 11:50 Temperature 97.4 F L Pulse Rate 76 Respiratory Rate 26 H Blood Pressure 123/71 Pulse Oximetry 96 Oxygen Delivery Method Room Air Oxygen Flow Rate 0 Narrative Exam Narrative: Pleasant gentleman in no obvious distress Lungs: Decreased breath sounds but clear to auscultation Cardiac exam: Regular rate and rhythm normal S1-S2 Abdomen: Obese, soft, mildly tender in the right lower quadrant and left mid areas, no rebound tenderness, no board-like rigidity Extremities: Trace edema bilaterally Objective Labs Result Diagrams: 12/22/19 04:43 12/23/19 04:54 Labs: Laboratory Results - last 24 hr 12/23/19 04:54 Sodium 137 Potassium 4.5 Chloride 104 Carbon Dioxide 27 BUN 13 Creatinine 0.93 Estimated GFR > 60.0 BUN/Creatinine Ratio 14.0 Glucose 123 H Calcium 9.6 Total Bilirubin 0.7 AST 24 ALT 46 Alkaline Phosphatase 55 Total Protein 6.8 Albumin 3.8 Globulin 3.0 Albumin/Globulin Ratio 1.3 Assessment & Plan Assessment & Plan narrative: Shortness of breath in the setting of Bilateral upper lobe pneumonia, acute, present on admission -continue IV Zosyn -Hep-Lock IV fluid -continue nebulizer Diverticulitis, acute, present on admission -D/C flagyl -Zosyn -advanced diet -Hep-Lock IV Shortness of breath concerning for CHF exacerbation -He has been ordered for an echocardiogram and a nuclear stress test for him in the morning -troponin x2 have been normal - Chest Xray likley pneumonia -stress test negative for acute reversible ischemia CAD, chronic, present on admission -continue home dose of carvedilol 6.25 after his stress test -continue lisinopril 10 mg p.o. daily -stress test negative Hyperlipidemia, chronic, present on admission -continue home dose of atorvastatin 40 mg p.o. daily GERD, chronic, present on admission -Continue home dose of omeprazole 20 mg p.o. daily Depression, chronic, present on admission -continue home dose of Lexapro 10 mg p.o. daily Home in 1-2 days Quality VTE Deep Vein Thrombosis/Pulmonary Embolism Present on Admission: No
[2019-12-23] MEDS: ACETAMINOPHEN 325 MG TABLET 975 MG PO (16:59)
[2019-12-23] MEDS: LACTOBACILLUS ACIDOPHILUS TABLET 1 EACH PO (16:59)
[2019-12-23] MEDS: LORATADINE 10 MG TABLET PO (20:46)
--- NOTE | 2019-12-23 21:14 | PC.NURSE ---
2100 - Pt resting in bed. C/O increased SOB this evening. Discussed activity and fatigue. Educated to abd distention and effects on work of breathing. Pt reports abd remains not like me. However BM's have seemed to slow this evening and pt has been taking PO intake without difficulty. O2 sats 98% on RA. Using IS and Flutter Valve independently. Call light in reach. Comfort measures provided.
[2019-12-24] VITALS (7 sets, daily range): BP systolic 106–134; BP diastolic 60–80; PULSE 63–89; RESP 16–20; TEMP 36.3–36.8; O2SAT 93–96
[2019-12-24] MEDS: PIPERACILLIN-TAZO 3.375 GM/50 ML FROZ.PIGGY IV ×3 (02:52→19:00)
[2019-12-24] MEDS: SODIUM CHLORIDE 0.9% FLUSH 10 ML IV ×3 (02:53→21:09)
[2019-12-24] MEDS: ACETAMINOPHEN 325 MG TABLET 975 MG PO ×3 (05:09→21:08)
[2019-12-24] MEDS: PANTOPRAZOLE 20 MG TABLET PO (05:09)
[2019-12-24] MEDS: ATORVASTATIN 20 MG TABLET 40 MG PO (08:32)
[2019-12-24] MEDS: ESCITALOPRAM 10 MG TABLET PO (08:32)
[2019-12-24] MEDS: ASPIRIN EC 81 MG TABLET PO (08:32)
[2019-12-24] MEDS: LACTOBACILLUS ACIDOPHILUS TABLET 1 EACH PO ×2 (08:32→17:38)
[2019-12-24] MEDS: carvediloL 6.25 MG TABLET PO ×2 (08:33→21:07)
[2019-12-24] MEDS: lisinopriL 10 MG TABLET PO (08:33)
[2019-12-24] MEDS: ENOXAPARIN 40 MG/0.4 ML SYRINGE SUBCUT (08:33)
--- NOTE | 2019-12-24 17:23 | P.PN_ITS ---
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 He has been admitted with bilateral pneumonia and is starting to improve on IV antibiotics today. He does report diarrhea, however t he patient has had multiple stools today and there was no liquid component to send for stool testing. Patient reports that his breathing is better. However he is markedly short of breath with minimal activity. He denies any chest,, chest pain. His stress test was negative during this admission. Plan to start having him ambulate with physical therapy. Exam Vital Signs (past 8 hours): - 12/24/19 11:52 12/24/19 15:47 Temperature 98.2 F 97.4 F L Pulse Rate 63 84 Respiratory Rate 18 20 Blood Pressure 106/60 129/80 Pulse Oximetry 94 95 Oxygen Delivery Method Room Air Oxygen Flow Rate 0 Narrative Exam Narrative: GENERAL APPEARANCE: Well developed, well nourished, in no acute distress. SKIN: Inspection of the skin reveals no rashes, ulcerations or petechiae. HEENT: Normocephalic atraumatic, extraocular muscles are intact, oropharynx is clear and mucous membranes are moist, neck is supple without adenopathy NECK: Supple and symmetric. There was no thyroid enlargement, and no tenderness, or masses were felt. CHEST: Normal AP diameter and normal contour without any kyphoscoliosis. LUNGS: Auscultation of the lungs revealed no wheezes, rhonchi, or rales. CARDIOVASCULAR: There was a regular rate and rhythm without any murmurs, gallops, rubs. Peripheral pulses were 2+ and symmetric. ABDOMEN: Soft and nontender with normal bowel sounds. No ascites was noted. MUSCULOSKELETAL: There was no tenderness or effusions noted. Muscle strength and tone were normal. EXTREMITIES: No cyanosis, clubbing or edema. NEUROLOGIC: Alert and oriented x 3. Normal affect. Strength is +5/5 in the Upper Extremities and Lower Extremities Bilaterally. Sensation to touch was normal. 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 He has been admitted with bilateral pneumonia and is starting to improve on IV antibiotics today. 1. Shortness of breath in the setting of Bilateral upper lobe pneumonia, acute, present on admission -continue IV Zosyn -Hep-Lock IV fluid -continue nebulizer therapies as needed. -echocardiogram did not reveal a cardiac source as EF was normal and diastolic function was also noted as normal. There was a dyssynchronous pattern but this did not appear to be significantly contributing to his shortness of breath. 2. Diverticulitis, acute, present on admission -D/C flagyl -Zosyn -advanced diet -stool panel pending -Hep-Lock IV 3. Ruled out for heart failure 4. CAD, chronic, present on admission -continue home dose of carvedilol 6.25 after his stress test -continue lisinopril 10 mg p.o. daily -stress test negative as noted previously. 5. Hyperlipidemia, chronic, present on admission -continue home dose of atorvastatin 40 mg p.o. daily 6. GERD, chronic, present on admission -Continue home dose of omeprazole 20 mg p.o. daily 7. Depression, chronic, present on admission -continue home dose of Lexapro 10 mg p.o. daily Dispo: Anticipate discharge in the next 1-2 days after ambulation with physical therapy and improvement in dyspnea on exertion given his bilateral pneumonia. Quality VTE Deep Vein Thrombosis/Pulmonary Embolism Present on Admission: No
[2019-12-24 17:43] LABS: Adenovirus F 40/41 Not Detected (Not Detect); Astrovirus Not Detected (Not Detect); Campylobacter Not Detected (Not Detect); Clostridium difficile toxin AB Not Detected (Not Detect); Cryptosporidium Not Detected (Not Detect); Cyclospora cayetanensis Not Detected (Not Detect); Entamoeba histolytica Not Detected (Not Detect); Enteroaggregative E.coli Not Detected (Not Detect); Enteropathogenic E.coli Not Detected (Not Detect); Enterotoxigenic E.coli It/st Not Detected (Not Detect); Giardia lamblia Not Detected (Not Detect); Norovirus GI/GII Not Detected (Not Detect); Plesiomonsa shigelloides Not Detected (Not Detect); Rotavirus A Not Detected (Not Detect); Salmonella Not Detected (Not Detect); Sapovirus Not Detected (Not Detect); Shiga-like toxin-prod E.coli Not Detected (Not Detect); Shigella/Enteroinvasive E.coli Not Detected (Not Detect); Vibrio Not Detected (Not Detect); Vibrio cholerae Not Detected (Not Detect); Yersinia enterocolitica Not Detected (Not Detect)
[2019-12-24] MEDS: LORATADINE 10 MG TABLET PO (21:08)
[2019-12-25 01:00] VITALS: BP 94/51; PULSE 68; RESP 20; TEMP 36.2; O2SAT 93
[2019-12-25] MEDS: PIPERACILLIN-TAZO 3.375 GM/50 ML FROZ.PIGGY IV ×2 (02:26→11:29)
[2019-12-25] MEDS: SODIUM CHLORIDE 0.9% FLUSH 10 ML IV ×2 (02:26→08:56)
[2019-12-25 02:30] VITALS: O2SAT 93
[2019-12-25] MEDS: ACETAMINOPHEN 325 MG TABLET 975 MG PO ×2 (05:24→12:20)
[2019-12-25] MEDS: PANTOPRAZOLE 20 MG TABLET PO (05:24)
[2019-12-25 05:26] VITALS: BP 136/62; PULSE 70; RESP 20; TEMP 36; O2SAT 95
[2019-12-25 05:43] LABS: Hematocrit 31.3 % (41-53); Hemoglobin 11.1 g/dL (13.5-17.5); Mean Corpuscular HGB Conc 35.6 % (30-36); Mean Corpuscular Hemoglobin 35.3 PG (26-34); Mean Corpuscular Volume 99.3 fL (80-100); Platelet Count 230 X10^3/uL (150-400); Red Blood Cell Count 3.15 X10^6/uL (4.5-5.9); Red Cell Distribution Width 16.5 % (11.6-14.8); White Blood Cell Count 4.6 X10^3/uL (4.5-11.0)
[2019-12-25 05:51] LABS: Add Manual Diff / Slide Review YES
[2019-12-25 05:58] LABS: Alanine Aminotransferase 34 IU/L (<50); Albumin 3.9 g/dL (3.5-5.0); Albumin Globulin Ratio 1.2 (1.0-2.8); Alkaline Phosphatase 46 U/L (38-126); Aspartate Aminotransferase 25 IU/L (17-59); BUN Creatinine Ratio 9.7 (6-22); Bilirubin Total 0.6 mg/dL (0.2-1.3); Bilirubin Unconjugated 0.4 mg/dL (0.0-1.1); Blood Urea Nitrogen 10 mg/dL (9-20); Calcium 9.8 mg/dL (8.4-10.2); Carbon Dioxide 29 mmol/L (22-32); Chloride 101 mmol/L (98-107); Estimated Glomerular Filt Rate > 60.0 mL/min (>60); Globulin 3.2 g/dL (1.7-4.1); Glucose 123 mg/dL (80-110); HEMOLYSIS < 15 (0-50); Magnesium 1.5 mg/dL (1.6-2.3); Potassium 4.5 mmol/L (3.4-5.1); Sodium 135 mmol/L (137-145); Total Protein 7.1 g/dL (6.3-8.2)
[2019-12-25 06:41] LABS: Neutrophils Absolute Manual 3082 /uL (3000-5900); Total Cells Counted 100
[2019-12-25 06:42] LABS: Anisocytosis 1+
[2019-12-25 08:29] VITALS: BP 147/69; PULSE 74; RESP 18; TEMP 36.2; O2SAT 99
[2019-12-25] MEDS: MAGNESIUM SULFATE 2 GM/50 ML PIGGYBACK IV (08:55)
[2019-12-25] MEDS: ASPIRIN EC 81 MG TABLET PO (08:55)
[2019-12-25] MEDS: ATORVASTATIN 20 MG TABLET 40 MG PO (08:55)
[2019-12-25] MEDS: ESCITALOPRAM 10 MG TABLET PO (08:56)
[2019-12-25] MEDS: carvediloL 6.25 MG TABLET PO (08:56)
[2019-12-25] MEDS: lisinopriL 10 MG TABLET PO (08:56)
[2019-12-25] MEDS: LACTOBACILLUS ACIDOPHILUS TABLET 1 EACH PO (08:56)
[2019-12-25] MEDS: ENOXAPARIN 40 MG/0.4 ML SYRINGE SUBCUT (08:56)
--- NOTE | 2019-12-25 08:57 | P.DS_ITS ---
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 Did denies muscle weakness, were rashes, unilateral weakness, but does endorse having significant anxiety and depression after being ?locked up? with the stay at home orders. He was to have started on a dexamethasone trial for a mass that was found on his upper right frontal lobe area of his brain, as it was causing him headaches. He discontinued taking the dexamethasone because of other side effects that he had and now he states his headaches are coming back. 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 In the emergency department they did swab him for COVID-19 which resulted is being negative. He was noted to have bilateral upper lobe pneumonia with ground-glass opacities, diverticulitis, and a contracted bladder. Patient's drainage retic peptide was 240 and his troponin was negative. 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 He was admitted with bilateral community-acquired pneumonia and improved with IV antibiotics. His shortness of breath improved to the point where he was able to walk around the nursing unit by himself. He still remain mildly short of breath foot was deemed stable for discharge home. He will complete a course of antibiotics for his diverticulitis, with an additional 7 days of Augmentin at home. This will more than adequately cover his pneumonia as well. 1. Shortness of breath in the setting of Bilateral upper lobe pneumonia, acute, present on admission -patient was continued on Zosyn therapy while admitted, he showed significant improvement with IV antibiotics and was discharged on Augmentin therapy. -echocardiogram did not reveal a cardiac source as EF was normal and diastolic function was also noted as normal. There was a dyssynchronous pattern but this did not appear to be significantly contributing to his shortness of breath. 2. Diverticulitis, acute, present on admission -CT scan showing possible diverticulitis on admission, as well as some mild abdominal pain and diarrhea. After antibiotics he reported a few episodes of diarrhea although these were not confirmed by nursing staff. His stool was sent which was negative for any infectious etiologies. He will continue Augmentin and have prescribed an additional 7 days to complete an outpatient course. 3. Ruled out for heart failure -TTE as noted above 4. CAD, chronic, present on admission -continue home dose of carvedilol 6.25 after his stress test -continue lisinopril 10 mg p.o. daily -stress test negative as noted during previous admissions. 5. Hyperlipidemia, chronic, present on admission -continue home dose of atorvastatin 40 mg p.o. daily 6. GERD, chronic, present on admission -Continue home dose of omeprazole 20 mg p.o. daily 7. Depression, chronic, present on admission -continue home dose of Lexapro 10 mg p.o. daily Dispo: Patient was discharged home with home health with significant improvement in his dyspnea. He will complete antibiotic course as noted above. I recommended that he follow-up with his primary care provider as soon as possible. Exam Vital Signs (past 8 hours): - 12/25/19 01:00 12/25/19 02:30 12/25/19 05:26 Temperature 97.2 F L 96.8 F L Pulse Rate 68 70 Respiratory Rate 20 20 Blood Pressure 94/51 L 136/62 Pulse Oximetry 93 93 95 12/25/19 08:29 Temperature 97.2 F L Pulse Rate 74 Respiratory Rate 18 Blood Pressure 147/69 H Pulse Oximetry 99 Oxygen Delivery Method Room Air Oxygen Flow Rate 0 Narrative Exam Narrative: GENERAL APPEARANCE: Well developed, well nourished, in no acute distress. SKIN: Inspection of the skin reveals no rashes, ulcerations or petechiae. HEENT: Normocephalic atraumatic, extraocular muscles are intact, oropharynx is clear and mucous membranes are moist, neck is supple without adenopathy NECK: Supple and symmetric. There was no thyroid enlargement, and no tenderness, or masses were felt. CHEST: Normal AP diameter and normal contour without any kyphoscoliosis. LUNGS: Auscultation of the lungs revealed no wheezes, rhonchi, or rales. CARDIOVASCULAR: There was a regular rate and rhythm without any murmurs, gallops, rubs. Peripheral pulses were 2+ and symmetric. ABDOMEN: Soft and nontender with normal bowel sounds. No ascites was noted. MUSCULOSKELETAL: There was no tenderness or effusions noted. Muscle strength and tone were normal. EXTREMITIES: No cyanosis, clubbing or edema. NEUROLOGIC: Alert and oriented x 3. Normal affect. Strength is +5/5 in the Upper Extremities and Lower Extremities Bilaterally. Sensation to touch was normal. Objective Labs Result Diagrams: 12/25/19 05:20 12/25/19 05:20 Labs: Laboratory Results - last 24 hr 12/24/19 12/25/19 12/25/19 13:35 05:20 05:20 WBC 4.6 RBC 3.15 L Hgb 11.1 L Hct 31.3 L MCV 99.3 MCH 35.3 H MCHC 35.6 RDW 16.5 H Plt Count 230 Neut % (Auto) Not Reportable Lymph % (Auto) Not Reportable [place] % (Auto) Not Reportable Eos % (Auto) Not Reportable Baso % (Auto) Not Reportable Lymph # (Auto) Not Reportable [place] # (Auto) Not Reportable Baso # (Auto) Not Reportable Total Counted 100 Seg Neutrophils % 60.0 Band Neutrophils % 7.0 Lymphocytes % (Manual) 11.0 L Monocytes % (Manual) 12.0 H Eosinophils % (Manual) 5.0 H Basophils % (Manual) 3.0 H Myelocytes % 2.0 H Neutrophils # (Manual) 3082 RBC Morphology See below Anisocytosis 1+ H Sodium 135 L Potassium 4.5 Chloride 101 Carbon Dioxide 29 BUN 10 Creatinine 1.03 Estimated GFR > 60.0 BUN/Creatinine Ratio 9.7 Glucose 123 H Calcium 9.8 Magnesium 1.5 L Total Bilirubin 0.6 Conjugated Bilirubin 0.0 Unconjugated Bilirubin 0.4 AST 25 ALT 34 Alkaline Phosphatase 46 Total Protein 7.1 Albumin 3.9 Globulin 3.2 Albumin/Globulin Ratio 1.2 Stl C. cayetanensis PCR Not detected Stool Rotavirus (PCR) Not detected Stool Adenovirus (PCR) Not detected Stool Astrovirus (PCR) Not detected Stool Cryptosporidium PCR Not detected Stl E.coli Shiga Tox PCR Not detected St Sh/Enteroin Ecoli PCR Not detected Stool E coli O157 PCR Not Reportable Stl Enterotoxigenic E PCR Not detected Stool EPEC (PCR) Not detected Stl E. histolytica PCR Not detected Stool Giardia Lamblia PCR Not detected Stool Sapovirus (PCR) Not detected Stl P. shigelloides PCR Not detected St Y.enterocolitica PCR Not detected Stool Vibrio (PCR) Not detected Stl Vibrio cholerae PCR Not detected Stl Enteroaggr Ecoli PCR Not detected Stl Norovirus GI/GII PCR Not detected Campylobacter (PCR) Not detected C. difficile Tox (PCR) Not detected Salmonella (PCR) Not detected Discharge Plan Discharge Plan Patient Disposition: Home Discharge comment: You were admitted to the hospital with pneumonia as well as diverticulitis. Your COVID-19 testing was negative. This was likely due to a bacteria. You improved with IV antibiotics. Your being discharged home to tr eat both your pneumonia as well as diverticulitis. You will take another week of antibiotics. Please try and follow-up with her primary care provider as soon as possible to recheck your symptoms. Discharge orders & Medications Prescriptions: New amoxicillin-pot clavulanate 875-125 mg tablet 1 tab PO BID 7 Days Qty: 14 RF: 0 Bacid 1 billion cell- 250 mg Tablet 1 tab PO BIDWM 14 Days Qty: 28 RF: 0 Continued omeprazole 20 mg capsule,delayed release(DR/EC) 20 mg PO DAILY RF: 0 escitalopram oxalate 10 mg tablet 10 mg PO DAILY RF: 0 lisinopril 10 mg tablet 10 mg PO DAILY RF: 0 atorvastatin 40 mg tablet 40 mg PO DAILY RF: 0 aspirin 81 mg tablet,delayed release (DR/EC) 81 mg PO DAILY RF: 0 albuterol sulfate 90 mcg/actuation HFA aerosol inhaler 2 puff INHALATION Q6H PRN (Reason: Headache) RF: 0 carvedilol 6.25 mg tablet 6.25 mg PO BID RF: 0 cetirizine [Allergy Relief (cetirizine)] 10 mg Tablet 10 mg PO DAILY PRN (Reason: Allergy Symptoms) RF: 0 acetaminophen 325 mg Tablet 650 mg PO Q4H PRN (Reason: Pain (Scale Score 1-3)) RF: 0 Discontinued dexamethasone 1 mg Tablet 1 mg PO BID RF: 0 Follow up/Referrals: Hunter Ferraro MD [Primary Care Provider] - Discharge Health Status Health Concerns: Community-acquired pneumonia Diverticulitis Multidrug resistant organism: No MDRO Diet/Activity/Treatments Diet: Diet as Tolerated Activity: As tolerated Visit Report/Discharge Packet Instructions: DI for Pneumonia -- Adult, DI for Diverticulitis, Amoxicillin and Clavulanic Acid Visit Report Forms: Patient Portal/API, Stroke Signs & Symptoms Discharge Data Primary Care Provider: Hunter Ferraro Discharges patient from system. Discharge Date/Time: 12/25/19 12:30 Quality VTE Deep Vein Thrombosis/Pulmonary Embolism Present on Admission: No
[2019-12-25 09:00] VITALS: O2SAT 99
--- NOTE | 2019-12-25 10:30 | PT-IP ANOTE ---
Pt discussed at interdisciplinary rounds. Dr. Valentin stated pt had no PT needs and would be discharging this morning. PT will remain available for re-consult if pt condition changes/if PT needs arise.
--- NOTE | 2019-12-25 12:57 | CM.DPNOTE ---
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 Pt ambulating indp. P: Home w/family via pov, close outpt f/u JW
== END 2019-12-25 12:30 | disposition home or self-care (01) | DRG 194 ==
LOC: ED 15:53 → AC 21:55 → ICU 12-22 10:00 → AC 12-23 09:50
PROVIDERS: Internal Medicine; Admitting Provider Nurse Practitioner Family; Emergency Provider Nurse Practitioner Family; PCP Student in an Organized Health Care Education/Training Program; Referring Provider Nurse Practitioner Family; Visit Provider Nurse Practitioner Family
DX: J18.9 Pneumonia, unspecified organism (principal); K57.92 Diverticulitis of intestine, part unspecified, without perforation or abscess without bleeding; C61 Malignant neoplasm of prostate; N39.498 Other specified urinary incontinence; Z95.1 Presence of aortocoronary bypass graft; K21.9 Gastro-esophageal reflux disease without esophagitis; F32.9 Major depressive disorder, single episode, unspecified; I44.0 Atrioventricular block, first degree; I25.10 Atherosclerotic heart disease of native coronary artery without angina pectoris; E78.5 Hyperlipidemia, unspecified; Z03.818 Encounter for observation for suspected exposure to other biological agents ruled out; Z87.891 Personal history of nicotine dependence; Z45.2 Encounter for adjustment and management of vascular access device
CPT/HCPCS: 36415; 51798; 71045; 71260; 74018; 74177; 78452; 80048; 80053; 80076; 81003; 82550; 83605; 83735; 83880; 84145; 84484; 85025; 85379; 85610; 85730; 87507; 87635; 93005; 93017; 93306; 94667; 96365; 96523; 99285; A9502; J1650; J2543; J2785; Q9967

== ENCOUNTER → 2020-01-08 19:02 | Outpatient (CLI) | payer MEDICARE, MEDICAID, SELFPAY ==
[2019-12-27 17:39] VITALS: BMI 36.1
[2020-01-08 20:12] LABS: Clostridium Difficile Tox PCR Negative for C. diff
== END ==
PROVIDERS: PCP Student in an Organized Health Care Education/Training Program; Referring Provider Student in an Organized Health Care Education/Training Program; Visit Provider Student in an Organized Health Care Education/Training Program
DX: R19.7 Diarrhea, unspecified (principal)
CPT/HCPCS: 87493

== ENCOUNTER → 2020-07-03 15:44 | Outpatient (CLI) | payer MEDICARE, MEDICAID, SELFPAY ==
[2019-12-27 17:39] VITALS: BMI 36.1
[2020-07-03 16:48] LABS: COVID19 -Nasal RAPID Negative (Negative)
== END ==
PROVIDERS: PCP Student in an Organized Health Care Education/Training Program; Visit Provider Physician Assistant
DX: Z11.59 Encounter for screening for other viral diseases (principal)
CPT/HCPCS: 87635

== ENCOUNTER 2020-09-08 07:27 | Emergency (ER) | payer MEDICARE, MEDICAID, SELFPAY ==
[2019-12-27 17:39] VITALS: BMI 36.1
[2020-09-08] VITALS (10 sets, daily range): BP systolic 111–166; BP diastolic 61–85; PULSE 50–63; RESP 15–18; TEMP 37; O2SAT 95–97; BMI 34.0
--- NOTE | 2020-09-08 07:35 | ED.GENADULT ---
HPI - General Adult General Chief complaint: Fall Stated complaint: Fell 08/31, ribs hurt,chest swelling,coughing hard Time Seen by Provider: 09/08/20 07:29 Source: patient Mode of arrival: Ambulatory Limitations: no limitations History of Present Illness HPI narrative: Patient is a 69-year-old male who approximately 8 days ago fell at home when he tripped over carpet on the floor. He states that he did land on his right side on some garden equipment. He did not hit his head. He thought potentially he lost some consciousness afterwards but is unsure this. Has had some pain medicine at home which he has taken over the past week. Over the past week feels like the pain on his right side has worsened to the point that it hurts whenever he takes a deep breath. He also feels like his abdomen is distended. Has not had any vomiting. Is not on blood thinners. Ran out of pain medicine yesterday so he states he did not sleep very well last evening. Came into the emergency department today under recommendation from his family. Related Data Home Medications Medication Instructions Recorded Confirmed albuterol sulfate 90 mcg/actuation 2 puff INHALATION Q6H PRN 06/17/19 12/31/19 aerosol inhaler aspirin 81 mg tablet,delayed 81 mg PO DAILY 06/17/19 12/31/19 release atorvastatin 40 mg tablet 40 mg PO DAILY 06/17/19 12/31/19 escitalopram oxalate 10 mg tablet 10 mg PO DAILY 06/17/19 12/31/19 lisinopril 10 mg tablet 10 mg PO DAILY 06/17/19 12/31/19 omeprazole 20 mg capsule,delayed 20 mg PO DAILY 06/17/19 12/31/19 release cetirizine [Allergy Relief 10 mg PO DAILY PRN 12/21/19 12/31/19 (cetirizine)] acetaminophen 650 mg PO Q4H PRN 12/22/19 12/31/19 metoprolol succinate 25 mg 12.5 mg PO DAILY 04/11/20 tablet,extended release 24 hr Previous Rx's Medication Instructions Recorded hydrocodone-acetaminophen [[place]] 1 tab PO Q4-6H PRN #14 tab 09/08/20 Allergies Allergy/AdvReac Type Severity Reaction Status Date / Time codeine Allergy Vomiting Verified 09/08/20 07:35 Review of Systems Constitutional Constitutional: Denies fever(s) ENT Ears, Nose, Mouth, and Throat: Denies neck pain Cardiovascular Cardiovascular: Reports chest pain and Reports dyspnea Respiratory Respiratory: Reports cough and Reports dyspnea Gastrointestinal Gastrointestinal: Reports abdominal pain, Reports bloating, Denies nausea and Denies vomiting Genitourinary Genitourinary: Denies dysuria Genitourinary: Denies dysuria Musculoskeletal Musculoskeletal: Denies back pain and Denies neck pain Integumentary/Breasts Skin/Breast: Denies rash Comments: Bruising right anterior chest Neurologic Neurologic: Denies behavioral changes Psychiatric Psychiatric: Denies behavioral changes Hematologic/Lymphatic On Anticoagulants: No Allergic/Immunologic Allergic/Immunologic: Denies urticaria Patient History Medical History Allergies Ankle pain Chronic back pain Fractures Hepatitis Liver disease Prostate cancer Surgical History (Updated 12/22/19 @ 05:17 by JANETH De Jesus) History of heart bypass surgery (~2017) History of prostatectomy Family History Father Cancer Diabetes mellitus History of heart disease Hypertension Hyperlipidemia Mother Diabetes mellitus History of heart disease Brother Diabetes mellitus Sister Cancer Diabetes mellitus Social History household members: family Smoking Status: Former smoker Smoking Status: Former smoker alcohol intake frequency: 0-2 drinks per day Alcohol type: wine Substance Use Type: marijuana Exam Initial Vital Signs Initial Vital Signs: Vital Signs Temperature 98.6 F 09/08/20 07:35 Pulse Rate 63 09/08/20 07:35 Respiratory Rate 18 09/08/20 07:35 Blood Pressure 166/85 H 09/08/20 07:35 Pulse Oximetry 97 09/08/20 07:35 Const General: cooperative and No comfortable Limitations: mental status not altered HENMT Head: normal to inspection and normocephalic Chest Chest: No crepitus and tenderness (Right anterior/lateral chest wall) Resp Effort & Inspection: no grunting and not labored Auscultation: wheezes scattered wheezes Cardio Rate: regular rate Rhythm: regular rhythm GI Inspection: distended Palpation: firm and tender (Upper abdomen) Back/Spine/Pelvis Back: No CVA tenderness Thoracic/Lumbar Spine: No thoracic spinal tenderness and No lumbar spinal tenderness Skin Other: Small amount of bruising right anterior lower chest wall Neuro General: patient alert, patient awake and patient oriented x3 Extrem General: capillary refill normal Psych Appearance: grossly normal and well kempt Scores GCS [place] coma scale eye opening: Spontaneous [place] coma scale verbal response: Orientated [place] coma scale motor response: Obey commands [place] coma scale total score: 15 Course Orders Ordered: ED Orders 09/08/20 07:50 Complete Blood Count AUTO DIFF Stat Comprehensive Metabolic Panel Stat Lipase Stat 09/08/20 08:31 CT chest abd pel w con Stat 09/08/20 09:17 RT Consult Eval and Treat Now Discontinued Medications Albuterol (Albuterol 2.5 Mg/3 Ml Neb (Adult)) 2.5 mg INH NOW ONE Stop: 09/08/20 09:17 Last Admin: 09/08/20 09:36 Dose: Not Given Documented by: Albuterol (Albuterol Hfa Prepack) 1 box MISC SEEINSTR ONE Stop: 09/08/20 09:36 Last Admin: 09/08/20 09:38 Dose: 1 box Documented by: Sodium Chloride (Normal Saline 0.9%) 1,000 mls @ 1,000 mls/hr IV BOLUS ONE Stop: 09/08/20 08:32 Last Admin: 09/08/20 08:09 Dose: 1,000 mls/hr Documented by: JAI Morphine Sulfate (Morphine 4 Mg/Ml Inj) 4 mg IV NOW ONE Stop: 09/08/20 08:15 Last Admin: 09/08/20 08:23 Dose: 4 mg Documented by: JUAN CANCE Vital Signs Vital signs: Vital Signs - 8 hr 09/08/20 07:35 09/08/20 07:36 09/08/20 08:00 Temperature 98.6 F Pulse Rate 63 58 L 52 L Respiratory Rate 18 Blood Pressure 166/85 H 120/71 Pulse Oximetry 97 96 96 09/08/20 08:36 09/08/20 08:46 09/08/20 09:00 Temperature Pulse Rate 54 L 55 L 52 L Respiratory Rate 15 Blood Pressure 120/71 Pulse Oximetry 95 97 95 09/08/20 09:22 09/08/20 09:30 09/08/20 09:31 Temperature Pulse Rate 50 L 50 L 52 L Respiratory Rate Blood Pressure 116/64 111/61 Pulse Oximetry 95 95 95 Medical Decision Making Lab Data Lab results reviewed: Yes I reviewed the patient's lab results. Result diagrams: 09/08/20 07:50 09/08/20 07:50 Labs: Lab Results 09/08/20 09/08/20 09/08/20 Range/Units 07:50 07:50 07:50 WBC 6.3 (4.5-11.0) X10^3/uL RBC 4.39 L (4.5-5.9) X10^6/uL Hgb 13.5 (13.5-17.5) g/dL Hct 40.4 L (41-53) % MCV 92.2 (80-100) fL MCH 30.9 (26-34) PG MCHC 33.5 (30-36) % RDW 13.8 (11.6-14.8) % Plt Count 182 (150-400) X10^3/uL Neut % (Auto) 76.5 H (50-75) % Lymph % (Auto) 10.9 L (25-40) % [place] % (Auto) 8.5 (3-14) % Eos % (Auto) 3.6 (2-4) % Baso % (Auto) 0.5 (0-2) % Neut # (Auto) 4800 (6907-5891) /uL Lymph # (Auto) 700 L (8491-4603) /uL [place] # (Auto) 500 (0-900) /uL Eos # (Auto) 200 (0-450) /uL Baso # (Auto) 0 (0-100) /uL Sodium 137 (137-145) mmol/L Potassium 4.6 (3.4-5.1) mmol/L Chloride 101 (98-107) mmol/L Carbon Dioxide 32 (22-32) mmol/L BUN 15 (9-20) mg/dL Creatinine 0.91 (0.66-1.25) mg/dL Estimated GFR > 60.0 (>60) mL/min BUN/Creatinine Ratio 16.5 (6-22) Glucose 116 H (80-110) mg/dL Calcium 9.6 (8.4-10.2) mg/dL Total Bilirubin 0.4 (0.2-1.3) mg/dL AST 28 (17-59) IU/L ALT 52 H (<50) IU/L Alkaline Phosphatase 91 (38-126) U/L Total Protein 7.7 (6.3-8.2) g/dL Albumin 4.5 (3.5-5.0) g/dL Globulin 3.2 (1.7-4.1) g/dL Albumin/Globulin Ratio 1.4 (1.0-2.8) Lipase 197 (23-300) U/L Urine Dip Bedside Urine Glucose Negative Bedside Urine Bilirubin - Negative Bedside Urine Ketone - Negative Urine Specific [place] 1.010 Bedside Urine Occult Blood - Negative Bedside Urine pH 6.0 Bedside Urine Protein - Negative Bedside Urine Urobilinogen - Negative Bedside Urine Nitrite - Negative Bedside Urine Leukocytes - Negative Esterase Point of care testing: Urine Dip Bedside Urine Glucose Negative Bedside Urine Bilirubin - Negative Bedside Urine Ketone - Negative Urine Specific [place] 1.010 Bedside Urine Occult Blood - Negative Bedside Urine pH 6.0 Bedside Urine Protein - Negative Bedside Urine Urobilinogen - Negative Bedside Urine Nitrite - Negative Bedside Urine Leukocytes - Negative Esterase Imaging Data CT chest/abd/pelvis: Radiologist's Impression: [address] [id number] Scan ReportSigned Patient: Adrien Spicer [facility]#: [id number]: 1950Acct:[id number]/Sex: 69 / MDate of Service: 09/08/20Loc: EDAccession Number: [id number] Procedure: CT chest abd pel w con Ordering Provider: Catracho Almendarez D.O. PROCEDURE: CT CHEST ABD PEL W CON INDICATIONS: R lower rib pain and ABD distention after fall one week ago TECHNIQUE: After the administration of intravenous contrast, 5 mm thick sections acquired from the lung apices to the symphysis. 5 mm coronal and sagittal reformats were performed, with additional 7 mm MIP reformats through the lungs. For radiation dose reduction, the following was used: automated exposure control, adjustment of mA and/or kV according to patient size. COMPARISON: [facility], CT, CT CHEST ABDOMEN PELVIS WITH CONTRAST, 04/04/2020, 11:18. [facility], CT, CT CHEST ABD PEL W CON, 12/21/2019, 20:29. FINDINGS: Image quality: Excellent. CHEST: Lungs and pleura: Marked interval progression of pulmonary metastatic disease. Numerous bilateral pulmonary nodules are now present. Pre-existing nodules have increased in size, and many new nodules have developed. No acute airspace opacities. No pleural effusions or pneumothorax. Central and peripheral airways appear patent and normal in caliber. Mediastinum: Heart size is normal. No pericardial effusion. Remote CABG. Moderately advanced coronary artery calcifications. No mediastinal or hilar adenopathy by size criteria. Thoracic aorta and central pulmonary arteries are normal in size. Esophagus is normal in caliber. No hiatal hernia. Chest wall: No axillary or supraclavicular adenopathy by size criteria. Thyroid gland is unremarkable as visualized . Port-A-Cath in satisfactory position. ABDOMEN: Solid organs: Liver is normal in size and enhancement. Gallbladder is surgically absent . Stable biliary ductal dilatation post cholecystectomy. Pancreas enhances normally. Spleen is normal in size and enhancement. No adrenal nodules. Kidneys demonstrate normal size and enhancement, without hydronephrosis. Peritoneum and bowel: Bowel loops demonstrate normal wall thickness and caliber. No free fluid or air. Sigmoid diverticulosis without evidence of diverticulitis. Nodes and vessels: No retroperitoneal or mesenteric adenopathy by size criteria. Aorta and inferior vena cava are normal in size. Miscellaneous: No ventral hernias. PELVIS: Genitourinary: Bladder wall thickness is normal. Miscellaneous: No inguinal hernias or adenopathy. Bones: No suspicious bony lesions. No acute vertebral body compression fractures. Numerous old mild thoracic compressions result in increase in thoracic kyphosis. IMPRESSION: 1. Marked interval progression of pulmonary metastatic disease. 2. No right rib fracture is identified. 3. No evidence of acute pulmonary or abdominal process. Dictated by: Corey Hills M.D. on 09/08/2020 at 8:43 Approved by: Corey Hills M.D. on 09/08/2020 at 8:54 [facility] Narrative Medical decision making narrative: Patient's CT scan shows no intra-abdominal pathology. No pneumothorax, no fractured ribs noted. He does have extensive metastatic disease which he knows about. He was wheezing bilaterally and was given an albuterol inhaler which cleared up the wheezing. Patient not hypoxic, not tachypneic, no indication for admission to the hospital. Will send home with pain medication and he was given strict return precautions. He expressed understanding and agreement with plan. Discharge Plan Departure Patient Disposition: Home Clinical Impression: Contusion of rib on right side, Lung metastases Instructions: DI for Rib Contusion Activity Restrictions/Additional Instructions: A prescription for pain medication was electronically transmitted to [facility]. Start taking them as directed as needed. The CT scan today does show extensive metastatic disease in your lungs which you stated that you knew about. I recommend that you contact your oncologist and keep all of your scheduled medical appointments. Use the incentive spirometer in the inhaler and spacer as directed. Return to the emergency department for any new or worsening symptoms Prescriptions: New hydrocodone-acetaminophen [[place]] 5-325 mg tablet 1 tab PO Q4-6H PRN (Reason: pain) Qty: 14 RF: 0 No Action metoprolol succinate 25 mg tablet extended release 24 hr 12.5 mg PO DAILY RF: 0 omeprazole 20 mg capsule,delayed release(DR/EC) 20 mg PO DAILY RF: 0 escitalopram oxalate 10 mg tablet 10 mg PO DAILY RF: 0 lisinopril 10 mg tablet 10 mg PO DAILY RF: 0 atorvastatin 40 mg tablet 40 mg PO DAILY RF: 0 aspirin 81 mg tablet,delayed release (DR/EC) 81 mg PO DAILY RF: 0 albuterol sulfate 90 mcg/actuation HFA aerosol inhaler 2 puff INHALATION Q6H PRN (Reason: Headache) RF: 0 cetirizine [Allergy Relief (cetirizine)] 10 mg Tablet 10 mg PO DAILY PRN (Reason: Allergy Symptoms) RF: 0 acetaminophen 325 mg Tablet 650 mg PO Q4H PRN (Reason: Pain (Scale Score 1-3)) RF: 0 Referrals: Hunter Ferraro MD [Primary Care Provider] -
[2020-09-08 07:59] LABS: Add Manual Diff / Slide Review NO; Basophils Absolute Auto 0 /uL (0-100); Basophils Percent Auto 0.5 % (0-2); Eosinophils Absolute Auto 200 /uL (0-450); Eosinophils Percent Auto 3.6 % (2-4); Hematocrit 40.4 % (41-53); Hemoglobin 13.5 g/dL (13.5-17.5); Lymphocytes Absolute Auto 700 /uL (1100-4500); Lymphocytes Percent Auto 10.9 % (25-40); Mean Corpuscular HGB Conc 33.5 % (30-36); Mean Corpuscular Hemoglobin 30.9 PG (26-34); Mean Corpuscular Volume 92.2 fL (80-100); Monocytes Absolute Auto 500 /uL (0-900); Monocytes Percent Auto 8.5 % (3-14); Neutrophils Absolute Auto 4800 /uL (1500-7000); Neutrophils Percent Auto 76.5 % (50-75); Platelet Count 182 X10^3/uL (150-400); Red Blood Cell Count 4.39 X10^6/uL (4.5-5.9); Red Cell Distribution Width 13.8 % (11.6-14.8); White Blood Cell Count 6.3 X10^3/uL (4.5-11.0)
[2020-09-08 08:09] LABS: Alanine Aminotransferase 52 IU/L (<50); Albumin 4.5 g/dL (3.5-5.0); Albumin Globulin Ratio 1.4 (1.0-2.8); Alkaline Phosphatase 91 U/L (38-126); Aspartate Aminotransferase 28 IU/L (17-59); BUN Creatinine Ratio 16.5 (6-22); Bilirubin Total 0.4 mg/dL (0.2-1.3); Blood Urea Nitrogen 15 mg/dL (9-20); Calcium 9.6 mg/dL (8.4-10.2); Carbon Dioxide 32 mmol/L (22-32); Chloride 101 mmol/L (98-107); Estimated Glomerular Filt Rate > 60.0 mL/min (>60); Globulin 3.2 g/dL (1.7-4.1); Glucose 116 mg/dL (80-110); HEMOLYSIS < 15 (0-50); Lipase 197 U/L (23-300); Potassium 4.6 mmol/L (3.4-5.1); Sodium 137 mmol/L (137-145); Total Protein 7.7 g/dL (6.3-8.2)
[2020-09-08] MEDS: SODIUM CHLORIDE 0.9% 1,000 ML 1000 ML IV (08:09)
[2020-09-08] MEDS: MORPHINE 4 MG/ML INJ IV (08:23)
--- NOTE | 2020-09-08 08:31 | DI.CT.S_ITS ---
PROCEDURE: CT CHEST ABD PEL W CON INDICATIONS: R lower rib pain and ABD distention after fall one week ago TECHNIQUE: After the administration of intravenous contrast, 5 mm thick sections acquired from the lung apices to the symphysis. 5 mm coronal and sagittal reformats were performed, with additional 7 mm MIP reformats through the lungs. For radiation dose reduction, the following was used: automated exposure control, adjustment of mA and/or kV according to patient size. COMPARISON: [facility], CT, CT CHEST ABDOMEN PELVIS WITH CONTRAST, 04/04/2020, 11:18. [facility], CT, CT CHEST ABD PEL W CON, 12/21/2019, 20:29. FINDINGS: Image quality: Excellent. CHEST: Lungs and pleura: Marked interval progression of pulmonary metastatic disease. Numerous bilateral pulmonary nodules are now present. Pre-existing nodules have increased in size, and many new nodules have developed. No acute airspace opacities. No pleural effusions or pneumothorax. Central and peripheral airways appear patent and normal in caliber. Mediastinum: Heart size is normal. No pericardial effusion. Remote CABG. Moderately advanced coronary artery calcifications. No mediastinal or hilar adenopathy by size criteria. Thoracic aorta and central pulmonary arteries are normal in size. Esophagus is normal in caliber. No hiatal hernia. Chest wall: No axillary or supraclavicular adenopathy by size criteria. Thyroid gland is unremarkable as visualized . Port-A-Cath in satisfactory position. ABDOMEN: Solid organs: Liver is normal in size and enhancement. Gallbladder is surgically absent . Stable biliary ductal dilatation post cholecystectomy. Pancreas enhances normally. Spleen is normal in size and enhancement. No adrenal nodules. Kidneys demonstrate normal size and enhancement, without hydronephrosis. Peritoneum and bowel: Bowel loops demonstrate normal wall thickness and caliber. No free fluid or air. Sigmoid diverticulosis without evidence of diverticulitis. Nodes and vessels: No retroperitoneal or mesenteric adenopathy by size criteria. Aorta and inferior vena cava are normal in size. Miscellaneous: No ventral hernias. PELVIS: Genitourinary: Bladder wall thickness is normal. Miscellaneous: No inguinal hernias or adenopathy. Bones: No suspicious bony lesions. No acute vertebral body compression fractures. Numerous old mild thoracic compressions result in increase in thoracic kyphosis. IMPRESSION: 1. Marked interval progression of pulmonary metastatic disease. 2. No right rib fracture is identified. 3. No evidence of acute pulmonary or abdominal process. Dictated by: Corey Hills M.D. on 09/08/2020 at 8:43 Approved by: Corey Hills M.D. on 09/08/2020 at 8:54
[2020-09-08] MEDS: ALBUTEROL HFA PREPACK 1 BOX MISC (09:38)
== END 2020-09-08 10:10 | disposition home or self-care (01) ==
PROVIDERS: Emergency Provider Emergency Medicine; PCP Student in an Organized Health Care Education/Training Program
DX: S20.211A Contusion of right front wall of thorax, initial encounter (principal); C78.00 Secondary malignant neoplasm of unspecified lung; R07.9 Chest pain, unspecified; R06.00 Dyspnea, unspecified; R05 Cough; R10.9 Unspecified abdominal pain; R14.0 Abdominal distension (gaseous); Z85.46 Personal history of malignant neoplasm of prostate; K76.9 Liver disease, unspecified
CPT/HCPCS: 36415; 71260; 74177; 80053; 81003; 83690; 85025; 94640; 96361; 96374; 99283; 99284; J2270; Q9967

== ENCOUNTER → 2020-09-21 10:32 | Outpatient (CLI) | payer MEDICARE, MEDICAID, SELFPAY ==
[2019-12-27 17:39] VITALS: BMI 36.1
[2020-09-21 11:59] LABS: Add Manual Diff / Slide Review NO; Basophils Absolute Auto 0 /uL (0-100); Basophils Percent Auto 0.7 % (0-2); Eosinophils Absolute Auto 200 /uL (0-450); Eosinophils Percent Auto 2.8 % (2-4); Hematocrit 39.9 % (41-53); Hemoglobin 13.7 g/dL (13.5-17.5); Lymphocytes Absolute Auto 700 /uL (1100-4500); Lymphocytes Percent Auto 12.6 % (25-40); Mean Corpuscular HGB Conc 34.4 % (30-36); Mean Corpuscular Hemoglobin 31.6 PG (26-34); Mean Corpuscular Volume 92.1 fL (80-100); Monocytes Absolute Auto 500 /uL (0-900); Monocytes Percent Auto 9.4 % (3-14); Neutrophils Absolute Auto 4100 /uL (1500-7000); Neutrophils Percent Auto 74.5 % (50-75); Platelet Count 211 X10^3/uL (150-400); Red Blood Cell Count 4.33 X10^6/uL (4.5-5.9); Red Cell Distribution Width 13.7 % (11.6-14.8); White Blood Cell Count 5.5 X10^3/uL (4.5-11.0)
[2020-09-21 12:11] LABS: Alanine Aminotransferase 19 IU/L (<50); Albumin 4.5 g/dL (3.5-5.0); Albumin Globulin Ratio 1.4 (1.0-2.8); Alkaline Phosphatase 96 U/L (38-126); Aspartate Aminotransferase 23 IU/L (17-59); BUN Creatinine Ratio 20.9 (6-22); Bilirubin Total 0.6 mg/dL (0.2-1.3); Blood Urea Nitrogen 19 mg/dL (9-20); Calcium 10.1 mg/dL (8.4-10.2); Carbon Dioxide 28 mmol/L (22-32); Chloride 102 mmol/L (98-107); Estimated Glomerular Filt Rate > 60.0 mL/min (>60); Globulin 3.2 g/dL (1.7-4.1); Glucose 100 mg/dL (80-110); HEMOLYSIS < 15 (0-50); Potassium 4.5 mmol/L (3.4-5.1); Sodium 138 mmol/L (137-145); Total Protein 7.7 g/dL (6.3-8.2)
[2020-09-21 12:40] LABS: Prostate Specific Antigen < 0.064 ng/mL (0.10-4.00)
== END ==
PROVIDERS: PCP Student in an Organized Health Care Education/Training Program; Referring Provider Nurse Practitioner Gerontology; Visit Provider Nurse Practitioner Gerontology
DX: C61 Malignant neoplasm of prostate (principal)
CPT/HCPCS: 36415; 80053; 84153; 85025

== ENCOUNTER → 2020-10-11 12:20 | Outpatient (CLI) | payer MEDICARE, MEDICAID, SELFPAY ==
[2019-12-27 17:39] VITALS: BMI 36.1
[2020-10-11 13:02] LABS: Hematocrit 36.9 % (41-53); Hemoglobin 12.3 g/dL (13.5-17.5); Mean Corpuscular HGB Conc 33.3 % (30-36); Mean Corpuscular Hemoglobin 31.1 PG (26-34); Mean Corpuscular Volume 93.6 fL (80-100); Platelet Count 70 X10^3/uL (150-400); Red Blood Cell Count 3.94 X10^6/uL (4.5-5.9); Red Cell Distribution Width 14.2 % (11.6-14.8); White Blood Cell Count 3.8 X10^3/uL (4.5-11.0)
[2020-10-11 13:06] LABS: Add Manual Diff / Slide Review YES
[2020-10-11 13:29] LABS: Alanine Aminotransferase 20 IU/L (<50); Albumin Globulin Ratio 1.7 (1.0-2.8); Alkaline Phosphatase 81 U/L (38-126); Aspartate Aminotransferase 17 IU/L (17-59); BUN Creatinine Ratio 32.6 (6-22); Bilirubin Total 0.5 mg/dL (0.2-1.3); Blood Urea Nitrogen 31 mg/dL (9-20); Calcium 9.2 mg/dL (8.4-10.2); Carbon Dioxide 29 mmol/L (22-32); Chloride 102 mmol/L (98-107); Estimated Glomerular Filt Rate > 60.0 mL/min (>60); Globulin 2.4 g/dL (1.7-4.1); Glucose 141 mg/dL (80-110); HEMOLYSIS < 15 (0-50); Potassium 4.8 mmol/L (3.4-5.1); Sodium 135 mmol/L (137-145); Total Protein 6.4 g/dL (6.3-8.2)
[2020-10-11 13:53] LABS: Neutrophils Absolute Manual 2812 /uL (3000-5900); RBC Morphology Normal Morphology; Total Cells Counted 50
== END ==
PROVIDERS: PCP Student in an Organized Health Care Education/Training Program; Referring Provider Nurse Practitioner Gerontology; Visit Provider Nurse Practitioner Gerontology
DX: C61 Malignant neoplasm of prostate (principal)
CPT/HCPCS: 36415; 80053; 85007; 85025

== ENCOUNTER → 2020-10-18 10:09 | Outpatient (CLI) | payer MEDICARE, MEDICAID, SELFPAY ==
[2019-12-27 17:39] VITALS: BMI 36.1
[2020-10-18 11:30] LABS: Hematocrit 37.4 % (41-53); Hemoglobin 12.5 g/dL (13.5-17.5); Mean Corpuscular HGB Conc 33.4 % (30-36); Mean Corpuscular Hemoglobin 31.3 PG (26-34); Mean Corpuscular Volume 93.6 fL (80-100); Platelet Count 107 X10^3/uL (150-400); Red Cell Distribution Width 14.3 % (11.6-14.8); White Blood Cell Count 6.4 X10^3/uL (4.5-11.0)
[2020-10-18 11:33] LABS: Add Manual Diff / Slide Review YES
[2020-10-18 11:37] LABS: Alanine Aminotransferase 23 IU/L (<50); Albumin 4.2 g/dL (3.5-5.0); Albumin Globulin Ratio 1.7 (1.0-2.8); Alkaline Phosphatase 73 U/L (38-126); Aspartate Aminotransferase 22 IU/L (17-59); BUN Creatinine Ratio 31.7 (6-22); Bilirubin Total 0.3 mg/dL (0.2-1.3); Blood Urea Nitrogen 26 mg/dL (9-20); Calcium 9.3 mg/dL (8.4-10.2); Carbon Dioxide 27 mmol/L (22-32); Chloride 101 mmol/L (98-107); Estimated Glomerular Filt Rate > 60.0 mL/min (>60); Globulin 2.5 g/dL (1.7-4.1); Glucose 125 mg/dL (80-110); HEMOLYSIS < 15 (0-50); Potassium 4.7 mmol/L (3.4-5.1); Sodium 133 mmol/L (137-145); Total Protein 6.7 g/dL (6.3-8.2)
[2020-10-18 12:01] LABS: Neutrophils Absolute Manual 4608 /uL (3000-5900); Nucleated Red Blood Cells 1 #/Diff; Total Cells Counted 100
[2020-10-18 12:02] LABS: RBC Morphology Normal Morphology
== END ==
PROVIDERS: PCP Student in an Organized Health Care Education/Training Program; Referring Provider Nurse Practitioner Gerontology; Visit Provider Nurse Practitioner Gerontology
DX: C61 Malignant neoplasm of prostate (principal)
CPT/HCPCS: 36415; 80053; 85007; 85025

== ENCOUNTER → 2020-10-27 15:01 | Outpatient (CLI) | payer MEDICARE, MEDICAID, SELFPAY ==
[2019-12-27 17:39] VITALS: BMI 36.1
[2020-10-27] MEDS: COVID-19 VACC, Ad26(JANSSEN)/PF 0.5 ML IM (15:08)
== END ==
PROVIDERS: PCP Student in an Organized Health Care Education/Training Program; Visit Provider Internal Medicine
DX: Z23 Encounter for immunization (principal)
CPT/HCPCS: 0031A; 91303

== ENCOUNTER → 2020-11-02 10:57 | Outpatient (CLI) | payer MEDICARE, MEDICAID, SELFPAY ==
[2019-12-27 17:39] VITALS: BMI 36.1
[2020-11-02 12:03] LABS: Hematocrit 33.4 % (41-53); Hemoglobin 11.2 g/dL (13.5-17.5); Mean Corpuscular HGB Conc 33.7 % (30-36); Mean Corpuscular Hemoglobin 31.6 PG (26-34); Mean Corpuscular Volume 93.9 fL (80-100); Platelet Count 48 X10^3/uL (150-400); Red Blood Cell Count 3.56 X10^6/uL (4.5-5.9); Red Cell Distribution Width 15.2 % (11.6-14.8); White Blood Cell Count 6.8 X10^3/uL (4.5-11.0)
[2020-11-02 12:05] LABS: Add Manual Diff / Slide Review YES
[2020-11-02 12:09] LABS: Alanine Aminotransferase 30 IU/L (<50); Albumin 4.1 g/dL (3.5-5.0); Albumin Globulin Ratio 1.8 (1.0-2.8); Alkaline Phosphatase 65 U/L (38-126); Aspartate Aminotransferase 26 IU/L (17-59); BUN Creatinine Ratio 35.3 (6-22); Bilirubin Total 0.5 mg/dL (0.2-1.3); Blood Urea Nitrogen 30 mg/dL (9-20); Calcium 9.6 mg/dL (8.4-10.2); Carbon Dioxide 27 mmol/L (22-32); Chloride 99 mmol/L (98-107); Estimated Glomerular Filt Rate > 60.0 mL/min (>60); Globulin 2.3 g/dL (1.7-4.1); Glucose 168 mg/dL (80-110); HEMOLYSIS 19 (0-50); Potassium 4.6 mmol/L (3.4-5.1); Sodium 134 mmol/L (137-145); Total Protein 6.4 g/dL (6.3-8.2)
[2020-11-02 12:23] LABS: Anisocytosis 2+; Neutrophils Absolute Manual 5304 /uL (3000-5900); Nucleated Red Blood Cells 2 #/Diff; Polychromasia 2+; Total Cells Counted 100
== END ==
PROVIDERS: PCP Student in an Organized Health Care Education/Training Program; Referring Provider Nurse Practitioner Gerontology; Visit Provider Nurse Practitioner Gerontology
DX: C61 Malignant neoplasm of prostate (principal)
CPT/HCPCS: 36415; 80053; 85007; 85025

== ENCOUNTER → 2020-11-16 11:10 | Outpatient (CLI) | payer MEDICARE, MEDICAID, SELFPAY ==
[2019-12-27 17:39] VITALS: BMI 36.1
[2020-11-16 12:11] LABS: Add Manual Diff / Slide Review NO; Basophils Absolute Auto 0 /uL (0-100); Basophils Percent Auto 0.3 % (0-2); Eosinophils Absolute Auto 0 /uL (0-450); Eosinophils Percent Auto 0.1 % (2-4); Hematocrit 29.3 % (41-53); Hemoglobin 10.3 g/dL (13.5-17.5); Lymphocytes Absolute Auto 400 /uL (1100-4500); Lymphocytes Percent Auto 13.3 % (25-40); Mean Corpuscular HGB Conc 35.2 % (30-36); Mean Corpuscular Hemoglobin 33.1 PG (26-34); Mean Corpuscular Volume 93.9 fL (80-100); Monocytes Absolute Auto 0 /uL (0-900); Monocytes Percent Auto 0.2 % (3-14); Neutrophils Absolute Auto 2600 /uL (1500-7000); Neutrophils Percent Auto 86.1 % (50-75); Platelet Count 183 X10^3/uL (150-400); Red Blood Cell Count 3.13 X10^6/uL (4.5-5.9); Red Cell Distribution Width 16.1 % (11.6-14.8)
[2020-11-16 12:50] LABS: Alanine Aminotransferase 34 IU/L (<50); Albumin 3.8 g/dL (3.5-5.0); Albumin Globulin Ratio 1.7 (1.0-2.8); Alkaline Phosphatase 47 U/L (38-126); Aspartate Aminotransferase 23 IU/L (17-59); BUN Creatinine Ratio 28.2 (6-22); Bilirubin Total 0.7 mg/dL (0.2-1.3); Blood Urea Nitrogen 24 mg/dL (9-20); Calcium 9.3 mg/dL (8.4-10.2); Carbon Dioxide 27 mmol/L (22-32); Chloride 96 mmol/L (98-107); Estimated Glomerular Filt Rate > 60.0 mL/min (>60); Globulin 2.3 g/dL (1.7-4.1); Glucose 121 mg/dL (80-110); HEMOLYSIS < 15 (0-50); Potassium 4.2 mmol/L (3.4-5.1); Sodium 131 mmol/L (137-145); Total Protein 6.1 g/dL (6.3-8.2)
== END ==
PROVIDERS: PCP Student in an Organized Health Care Education/Training Program; Referring Provider Nurse Practitioner Gerontology; Visit Provider Nurse Practitioner Gerontology
DX: C61 Malignant neoplasm of prostate (principal)
CPT/HCPCS: 36415; 80053; 85025

== ENCOUNTER 2020-11-21 13:13 | Inpatient (IN) | payer MEDICARE, MEDICAID, SELFPAY ==
[2019-12-27 17:39] VITALS: BMI 36.1
[2020-11-21] VITALS (20 sets, daily range): BP systolic 116–162; BP diastolic 61–99; PULSE 77–103; RESP 16–32; TEMP 36.2–37; O2SAT 96–99; BMI 35.4
--- NOTE | 2020-11-21 | DI.CT.S_ITS ---
PROCEDURE: CT SOFT TISSUE NECK WO CON INDICATIONS: neck tightness TECHNIQUE: Non-contrast 3.0 mm axial sections acquired from the sella to the aortic arch. Additional oblique axial 3.0 mm sections acquired through the pharynx. 3 mm thick coronal and sagittal reformats were generated. For radiation dose reduction, the following was used: automated exposure control. COMPARISON: [facility], MR, MR BRAIN WITH/WITHOUT CONTRAST, 01/26/2020, 12:44. FINDINGS: Image quality: Excellent. Lymph nodes: No enlarged lymph nodes seen throughout the neck. Vessels: Non-opacified vessels appear normal in caliber. [id number] carotid bulb calcification bilaterally. Neck spaces: The oropharynx, nasopharynx, and pharynx demonstrate no mucosal lesions. The vocal cords, false vocal cords, pyriform sinuses, epiglottis, vallecula, and tongue base all appear normal. Extramucosal spaces appear unremarkable. Glands: The parotid and submandibular glands appear normal, without stones. Thyroid gland is normal . Miscellaneous: Visible portion of the brain demonstrates an extra-axial right frontal temporal region 1.0 cm hyperdense mass. The orbits are unremarkable. Right chest MediPort. Lung apices appear clear. Prior median sternotomy. Superficial soft tissues appear normal. Multilevel degenerative disc height loss and endplate spur formation from the C3 through C6. Grade 1 anterolisthesis C6 on C7. IMPRESSION: 1. No suspicious findings in the soft tissues of the neck. 2. Stable right frontal temporal lobe meningioma. Dictated by: Eduarda Jimenez M.D. on 11/21/2020 at 17:33 Approved by: Eduarda Jimenez M.D. on 11/21/2020 at 17:40
--- NOTE | 2020-11-21 13:32 | DI.RAD.S_ITS ---
PROCEDURE: XR CHEST 2V INDICATIONS: shortness of breath TECHNIQUE: 2 views of the chest were acquired. COMPARISON: [facility], CR, XR CHEST 1V, 12/21/2019, 15:41. FINDINGS: Surgical changes and devices: Sternotomy wires, presumed prior CABG. Port-A-Cath from right-sided approach which extends with its tip distal S EC.. Lungs and pleura: Lungs are considering body habitus and reduced inspiratory volume. No pleural effusions or pneumothorax. Mediastinum: Mediastinal contours are normal. Heart size is normal. Bones and chest wall: No suspicious bony abnormalities. Soft tissues appear unremarkable. IMPRESSION: Prior presumed CABG right-sided approach, source of shortness of breath is not seen. Dictated by: Stuart Lovett M.D. on 11/21/2020 at 13:45 Approved by: Stuart Lovett M.D. on 11/21/2020 at 13:47
[2020-11-21 13:59] LABS: Hematocrit 26.5 % (41-53); Mean Corpuscular HGB Conc 34.1 % (30-36); Mean Corpuscular Hemoglobin 32.1 PG (26-34); Platelet Count 58 X10^3/uL (150-400); Red Blood Cell Count 2.82 X10^6/uL (4.5-5.9); Red Cell Distribution Width 16.2 % (11.6-14.8)
[2020-11-21 14:01] LABS: Add Manual Diff / Slide Review YES
[2020-11-21 14:02] LABS: White Blood Cell Count 0.5 X10^3/uL (4.5-11.0)
[2020-11-21 14:14] LABS: Lactate (Lactic Acid) 1.7 mmol/L (0.7-2.1)
[2020-11-21 14:15] LABS: Creatine Kinase 41 U/L (55-170)
[2020-11-21 14:15] LABS: Alanine Aminotransferase 31 IU/L (<50); Albumin Globulin Ratio 1.6 (1.0-2.8); Alkaline Phosphatase 56 U/L (38-126); Aspartate Aminotransferase 18 IU/L (17-59); BUN Creatinine Ratio 33.3 (6-22); Bilirubin Total 0.5 mg/dL (0.2-1.3); Blood Urea Nitrogen 28 mg/dL (9-20); Calcium 9.2 mg/dL (8.4-10.2); Carbon Dioxide 25 mmol/L (22-32); Chloride 104 mmol/L (98-107); Estimated Glomerular Filt Rate > 60.0 mL/min (>60); Globulin 2.5 g/dL (1.7-4.1); Glucose 181 mg/dL (80-110); HEMOLYSIS < 15 (0-50); Potassium 4.4 mmol/L (3.4-5.1); Sodium 138 mmol/L (137-145); Total Protein 6.5 g/dL (6.3-8.2)
[2020-11-21 14:23] LABS: NT-proBNP (BNP-Adult 18+) 252 pg/mL (<125)
[2020-11-21 14:24] LABS: COVID19 -Nasal RAPID Negative (Negative)
[2020-11-21] MEDS: ALBUTEROL/IPRATROPIUM 3 ML AMPUL INH ×3 (14:25→20:34)
[2020-11-21 14:27] LABS: Troponin I < 0.012 ng/mL (0.01-0.034)
[2020-11-21 15:19] LABS: Neutrophils Absolute Manual 125 /uL (3000-5900); Total Cells Counted 20
[2020-11-21 15:22] LABS: RBC Morphology Normal Morphology
[2020-11-21 15:25] LABS: Platelet Estimate Decreased on smear
--- NOTE | 2020-11-21 15:50 | ED.GENADULT ---
HPI - General Adult <Mary Spence MD - Last Filed: 11/21/20 17:12> General Chief complaint: Shortness of Breath/Dyspnea Stated complaint: cant breathe at all Time Seen by Provider: 11/21/20 13:50 Source: patient Mode of arrival: Ambulatory Limitations: no limitations History of Present Illness HPI narrative: 69-year-old gentleman with a history of prostate cancer, small cell cancer, coronary artery disease post CABG in 2017, hypertension currently round 3 of 4 of chemo through [facility] at the [facility] on daily filgrastim presents with increasing dyspnea and increasingly productive cough over the last 1-2 weeks. He did increase his dexamethasone and inhaler use and found that had that helped slightly but he is finding himself weaker and weaker and having difficulty walking from his motor home to his daughter's house right next door. He does not describe specific chest pain he has been increasingly fatigued. Orthopnea as well as dyspnea. Describes his sputum changing from been mucousy sputum to white to greenish over the last number of days. He does not describe fevers or chills, abdominal pain or dysuria. He does described increased lower extremity edema and has had to readjust the straps of his sandals accordingly. Related Data Home Medications Medication Instructions Recorded Confirmed albuterol sulfate 90 mcg/actuation 2 puff INHALATION Q6H PRN 06/17/19 11/21/20 aerosol inhaler aspirin 81 mg tablet,delayed 81 mg PO DAILY 06/17/19 11/21/20 release atorvastatin 40 mg tablet 40 mg PO DAILY 06/17/19 11/21/20 escitalopram oxalate 10 mg tablet 10 mg PO DAILY 06/17/19 11/21/20 lisinopril 10 mg tablet 10 mg PO DAILY 06/17/19 11/21/20 omeprazole 20 mg capsule,delayed 20 mg PO DAILY 06/17/19 11/21/20 release cetirizine [Allergy Relief 10 mg PO DAILY PRN 12/21/19 11/21/20 (cetirizine)] acetaminophen 500 mg PO Q4H PRN 12/22/19 11/21/20 metoprolol succinate 25 mg 12.5 mg PO DAILY 04/11/20 11/21/20 tablet,extended release 24 hr dexamethasone 2 mg PO DAILY 11/21/20 11/21/20 fluticasone propionate 2 spray INTRANASAL DAILY PRN 11/21/20 11/21/20 magnesium oxide 400 mg PO DAILY 11/21/20 11/21/20 tramadol 50 mg PO Q4HR PRN 11/21/20 11/21/20 trazodone 50 mg PO BEDTIME PRN 11/21/20 11/21/20 triamcinolone acetonide 50 mcg INTRANASAL 11/21/20 Previous Rx's Medication Instructions Recorded furosemide [Lasix] 40 mg PO DAILY #30 tab 11/23/20 Allergies Allergy/AdvReac Type Severity Reaction Status Date / Time codeine Allergy Vomiting Verified 11/21/20 13:27 Patient History <Mary Spence MD - Last Filed: 11/21/20 17:12> Medical History Allergies Ankle pain Chronic back pain Fractures Hepatitis Liver disease Prostate cancer Surgical History History of heart bypass surgery (~2016) History of prostatectomy Family History Father Cancer Diabetes mellitus History of heart disease Hypertension Hyperlipidemia Mother Diabetes mellitus History of heart disease Brother Diabetes mellitus Sister Cancer Diabetes mellitus Social History household members: family and other Smoking Status: Former smoker Smoking Status: Former smoker alcohol intake frequency: holidays/special occasions only Alcohol type: wine Substance Use Type: does not use Exam <Mary Spence MD - Last Filed: 11/21/20 17:12> Initial Vital Signs Initial Vital Signs: Vital Signs Temperature 98.6 F 11/21/20 13:24 Pulse Rate 95 H 11/21/20 13:24 Respiratory Rate 24 11/21/20 13:24 Blood Pressure 162/85 H 11/21/20 13:24 Pulse Oximetry 99 11/21/20 13:24 <Amparo Silverman DO - Last Filed: 11/25/20 01:20> Initial Vital Signs Initial Vital Signs: Vital Signs Temperature 98.6 F 11/21/20 13:24 Pulse Rate 95 H 11/21/20 13:24 Respiratory Rate 24 11/21/20 13:24 Blood Pressure 162/85 H 11/21/20 13:24 Pulse Oximetry 99 11/21/20 13:24 Course <Mary Spence MD - Last Filed: 11/21/20 17:12> Orders Ordered: Discontinued Medications Acetaminophen (Acetaminophen 325 Mg Tablet) 650 mg PO Q6HR PRN PRN Reason: Fever/Mild Pain (1-3) Last Admin: 11/21/20 20:23 Dose: 650 mg Documented by: LOREE Acetaminophen (Acetaminophen 325 Mg Tablet) 650 mg PO Q4H PRN PRN Reason: Pain (Scale Score 1-3) Last Admin: 11/23/20 09:24 Dose: 650 mg Documented by: Admin: 11/22/20 22:06 Dose: 650 mg Documented by: Admin: 11/22/20 09:25 Dose: 650 mg Documented by: KIRSTEN Albuterol (Albuterol 2.5 Mg/3 Ml Neb (Adult)) 2.5 mg INH [id number] PRN PRN Reason: Shortness Of Breath Last Admin: 11/22/20 13:17 Dose: 2.5 mg Documented by: Admin: 11/21/20 23:06 Dose: 2.5 mg Documented by: LUIS Albuterol/Ipratropium (Albuterol/Ipratropium 3 Ml Ampul) 3 ml INH NOW ONE Stop: 11/21/20 14:22 Last Admin: 11/21/20 14:25 Dose: 3 ml Documented by: KRYSTIAN Albuterol/Ipratropium (Albuterol/Ipratropium 3 Ml Ampul) 3 ml INH NOW ONE Stop: 11/21/20 16:20 Last Admin: 11/21/20 16:57 Dose: 3 ml Documented by: KRYSTIAN Albuterol/Ipratropium (Albuterol/Ipratropium 3 Ml Ampul) 3 ml INH [id number] SAUL Last Admin: 11/23/20 10:10 Dose: Not Given Documented by: Admin: 11/22/20 23:09 Dose: 3 ml Documented by: Admin: 11/22/20 20:20 Dose: 3 ml Documented by: Admin: 11/22/20 13:27 Dose: Not Given Documented by: Admin: 11/22/20 11:27 Dose: Not Given Documented by: Admin: 11/22/20 08:35 Dose: 3 ml Documented by: Admin: 11/21/20 20:34 Dose: 3 ml Documented by: Admin: 11/21/20 20:09 Dose: Not Given Documented by: LUIS Aspirin (Aspirin Ec 81 Mg Tablet) 81 mg PO DAILY [facility] Last Admin: 11/23/20 08:17 Dose: 81 mg Documented by: Admin: 11/22/20 09:26 Dose: 81 mg Documented by: KIRSTEN Atorvastatin Calcium (Atorvastatin 20 Mg Tablet) 40 mg PO DAILY [facility] Last Admin: 11/23/20 08:21 Dose: 40 mg Documented by: Admin: 11/22/20 09:26 Dose: 40 mg Documented by: KIRSTEN Escitalopram Oxalate (Escitalopram 10 Mg Tablet) 10 mg PO DAILY [facility] Last Admin: 11/23/20 08:18 Dose: 10 mg Documented by: KIRSTEN Filgrastim (Filgrastim-Aafi 480 Mcg/0.8 Ml Syringe) 480 mcg SUBCUT BEDTIME [facility] Last Admin: 11/22/20 22:34 Dose: 480 mcg Documented by: SETH Furosemide (Furosemide 40 Mg/4 Ml Vial) 40 mg IV DAILY [facility] Last Admin: 11/23/20 08:18 Dose: 40 mg Documented by: Admin: 11/22/20 09:25 Dose: 40 mg Documented by: KIRSTEN Heparin Sodium (Porcine) (Heparin 5,000 Unit/Ml Vial) 5,000 unit SUBCUT BID [facility] Last Admin: 11/22/20 09:25 Dose: 5,000 unit Documented by: Admin: 11/21/20 21:07 Dose: 5,000 unit Documented by: MARYANA Piperacillin Sod/Tazobactam (Sod 4.5 gm/ Sodium Chloride) 100 mls @ 200 mls/hr IV NOW ONE Stop: 11/21/20 16:29 Last Infusion: 11/21/20 18:02 Dose: 0 mls/hr Documented by: Admin: 11/21/20 17:01 Dose: 200 mls/hr Documented by: MAILE Vancomycin HCl/Dextrose (Vancomycin) 1,500 mg in 300 mls @ 200 mls/hr IV NOW ONE Stop: 11/21/20 17:57 Last Infusion: 11/21/20 19:24 Dose: 0 mls/hr Documented by: Admin: 11/21/20 18:13 Dose: 200 mls/hr Documented by: MAILE Azithromycin 500 mg/ Dextrose 250 mls @ 250 mls/hr IV Q24H [facility] Last Admin: 11/22/20 23:41 Dose: 250 mls/hr Documented by: Infusion: 11/21/20 22:42 Dose: 0 mls/hr Documented by: Admin: 11/21/20 21:03 Dose: 250 mls/hr Documented by: LOREE Ceftriaxone Sodium/Dextrose (Rocephin) 1 gm in 50 mls @ 100 mls/hr IV Q24H [facility] Last Admin: 11/23/20 01:13 Dose: 100 mls/hr Documented by: Infusion: 11/21/20 23:06 Dose: 100 mls/hr Documented by: Admin: 11/21/20 22:36 Dose: 100 mls/hr Documented by: LOREE Magnesium Sulfate (Magnesium Sulfate) 4 gm in 100 mls @ 100 mls/hr IV NOW ONE Stop: 11/22/20 20:48 Last Admin: 11/22/20 22:00 Dose: 100 mls/hr Documented by: SETH Cosigned by: ANGELA Lisinopril (Lisinopril 10 Mg Tablet) 10 mg PO DAILY [facility] Last Admin: 11/23/20 08:17 Dose: 10 mg Documented by: KIRSTEN Loratadine (Loratadine 10 Mg Tablet) 10 mg PO DAILY PRN PRN Reason: ALLERGIES Last Admin: 11/23/20 08:17 Dose: 10 mg Documented by: KIRSTEN Methylprednisolone (Methylprednisolone 125 Mg/2 Ml Vial) 125 mg IV NOW ONE Stop: 11/21/20 16:20 Last Admin: 11/21/20 17:01 Dose: 125 mg Documented by: MAILE Metoprolol Succinate (Metoprolol Er 25 Mg Tablet) 12.5 mg PO DAILY [facility] Last Admin: 11/23/20 08:18 Dose: 12.5 mg Documented by: Admin: 11/22/20 09:26 Dose: 12.5 mg Documented by: KIRSTEN Naloxone HCl (Naloxone 0.4 Mg/Ml Vial) 0.2 mg IV Q2MIN PRN PRN Reason: Opiate Reversal Ondansetron HCl (Ondansetron 4 Mg/2 Ml Inj) 4 mg IV Q8HR PRN PRN Reason: Nausea And Vomiting Last Admin: 11/21/20 22:20 Dose: 4 mg Documented by: MARYANA Pantoprazole Sodium (Pantoprazole 20 Mg Tablet) 20 mg PO DAILY@0700 [facility] Last Admin: 11/23/20 08:17 Dose: 20 mg Documented by: KIRSTEN Prednisone (Prednisone 20 Mg Tablet) 40 mg PO DAILY [facility] Last Admin: 11/23/20 08:17 Dose: 40 mg Documented by: Admin: 11/22/20 09:26 Dose: 40 mg Documented by: KIRSTEN Tramadol HCl (Tramadol 50 Mg Tablet) 50 mg PO Q4HR PRN PRN Reason: Pain (Scale Score 7-10) Trazodone HCl (Trazodone 50 Mg Tablet) 50 mg PO BEDTIME PRN PRN Reason: Sleep Last Admin: 11/22/20 23:43 Dose: 50 mg Documented by: SETH Vital Signs Vital signs: Vital Signs - 8 hr 11/21/20 13:24 11/21/20 14:19 11/21/20 14:20 Temperature 98.6 F Pulse Rate 95 H 91 H 90 Respiratory Rate 24 32 H 26 H Blood Pressure 162/85 H 152/83 H Pulse Oximetry 99 99 99 11/21/20 14:30 11/21/20 14:50 11/21/20 15:00 Temperature Pulse Rate 84 77 85 Respiratory Rate 24 24 25 H Blood Pressure 154/83 H Pulse Oximetry 99 98 99 11/21/20 15:01 11/21/20 15:30 11/21/20 15:31 Temperature Pulse Rate 87 82 84 Respiratory Rate 26 H 22 23 Blood Pressure 162/70 H 119/71 Pulse Oximetry 99 98 98 11/21/20 16:00 11/21/20 16:48 11/21/20 16:49 Temperature Pulse Rate 87 88 86 Respiratory Rate 25 H 20 16 Blood Pressure 124/72 160/82 H Pulse Oximetry 97 99 98 11/21/20 17:00 11/21/20 17:01 11/21/20 17:30 Temperature Pulse Rate 89 79 88 Respiratory Rate 22 20 27 H Blood Pressure 121/61 128/69 Pulse Oximetry 99 99 99 11/21/20 18:00 Temperature Pulse Rate 86 Respiratory Rate 26 H Blood Pressure Pulse Oximetry 96 <Amparo Silverman, - Last Filed: 11/25/20 01:20> Orders Ordered: Discontinued Medications Acetaminophen (Acetaminophen 325 Mg Tablet) 650 mg PO Q6HR PRN PRN Reason: Fever/Mild Pain (1-3) Last Admin: 11/21/20 20:23 Dose: 650 mg Documented by: LOREE Acetaminophen (Acetaminophen 325 Mg Tablet) 650 mg PO Q4H PRN PRN Reason: Pain (Scale Score 1-3) Last Admin: 11/23/20 09:24 Dose: 650 mg Documented by: Admin: 11/22/20 22:06 Dose: 650 mg Documented by: Admin: 11/22/20 09:25 Dose: 650 mg Documented by: KIRSTEN Albuterol (Albuterol 2.5 Mg/3 Ml Neb (Adult)) 2.5 mg INH [id number] PRN PRN Reason: Shortness Of Breath Last Admin: 11/22/20 13:17 Dose: 2.5 mg Documented by: Admin: 11/21/20 23:06 Dose: 2.5 mg Documented by: LUIS Albuterol/Ipratropium (Albuterol/Ipratropium 3 Ml Ampul) 3 ml INH NOW ONE Stop: 11/21/20 14:22 Last Admin: 11/21/20 14:25 Dose: 3 ml Documented by: KRYSTIAN Albuterol/Ipratropium (Albuterol/Ipratropium 3 Ml Ampul) 3 ml INH NOW ONE Stop: 11/21/20 16:20 Last Admin: 11/21/20 16:57 Dose: 3 ml Documented by: KRYSTIAN Albuterol/Ipratropium (Albuterol/Ipratropium 3 Ml Ampul) 3 ml INH [id number] SAUL Last Admin: 11/23/20 10:10 Dose: Not Given Documented by: Admin: 11/22/20 23:09 Dose: 3 ml Documented by: Admin: 11/22/20 20:20 Dose: 3 ml Documented by: Admin: 11/22/20 13:27 Dose: Not Given Documented by: Admin: 11/22/20 11:27 Dose: Not Given Documented by: Admin: 11/22/20 08:35 Dose: 3 ml Documented by: Admin: 11/21/20 20:34 Dose: 3 ml Documented by: Admin: 11/21/20 20:09 Dose: Not Given Documented by: LUIS Aspirin (Aspirin Ec 81 Mg Tablet) 81 mg PO DAILY [facility] Last Admin: 11/23/20 08:17 Dose: 81 mg Documented by: Admin: 11/22/20 09:26 Dose: 81 mg Documented by: KIRSTEN Atorvastatin Calcium (Atorvastatin 20 Mg Tablet) 40 mg PO DAILY [facility] Last Admin: 11/23/20 08:21 Dose: 40 mg Documented by: Admin: 11/22/20 09:26 Dose: 40 mg Documented by: KIRSTEN Escitalopram Oxalate (Escitalopram 10 Mg Tablet) 10 mg PO DAILY [facility] Last Admin: 11/23/20 08:18 Dose: 10 mg Documented by: KIRSTEN Filgrastim (Filgrastim-Aafi 480 Mcg/0.8 Ml Syringe) 480 mcg SUBCUT BEDTIME [facility] Last Admin: 11/22/20 22:34 Dose: 480 mcg Documented by: SETH Furosemide (Furosemide 40 Mg/4 Ml Vial) 40 mg IV DAILY [facility] Last Admin: 11/23/20 08:18 Dose: 40 mg Documented by: Admin: 11/22/20 09:25 Dose: 40 mg Documented by: KIRSTEN Heparin Sodium (Porcine) (Heparin 5,000 Unit/Ml Vial) 5,000 unit SUBCUT BID [facility] Last Admin: 11/22/20 09:25 Dose: 5,000 unit Documented by: Admin: 11/21/20 21:07 Dose: 5,000 unit Documented by: MARYANA Piperacillin Sod/Tazobactam (Sod 4.5 gm/ Sodium Chloride) 100 mls @ 200 mls/hr IV NOW ONE Stop: 11/21/20 16:29 Last Infusion: 11/21/20 18:02 Dose: 0 mls/hr Documented by: Admin: 11/21/20 17:01 Dose: 200 mls/hr Documented by: MAILE Vancomycin HCl/Dextrose (Vancomycin) 1,500 mg in 300 mls @ 200 mls/hr IV NOW ONE Stop: 11/21/20 17:57 Last Infusion: 11/21/20 19:24 Dose: 0 mls/hr Documented by: Admin: 11/21/20 18:13 Dose: 200 mls/hr Documented by: MAILE Azithromycin 500 mg/ Dextrose 250 mls @ 250 mls/hr IV Q24H [facility] Last Admin: 11/22/20 23:41 Dose: 250 mls/hr Documented by: Infusion: 11/21/20 22:42 Dose: 0 mls/hr Documented by: Admin: 11/21/20 21:03 Dose: 250 mls/hr Documented by: LOREE Ceftriaxone Sodium/Dextrose (Rocephin) 1 gm in 50 mls @ 100 mls/hr IV Q24H [facility] Last Admin: 11/23/20 01:13 Dose: 100 mls/hr Documented by: Infusion: 11/21/20 23:06 Dose: 100 mls/hr Documented by: Admin: 11/21/20 22:36 Dose: 100 mls/hr Documented by: LOREE Magnesium Sulfate (Magnesium Sulfate) 4 gm in 100 mls @ 100 mls/hr IV NOW ONE Stop: 11/22/20 20:48 Last Admin: 11/22/20 22:00 Dose: 100 mls/hr Documented by: SETH Cosigned by: ANGELA Lisinopril (Lisinopril 10 Mg Tablet) 10 mg PO DAILY [facility] Last Admin: 11/23/20 08:17 Dose: 10 mg Documented by: KIRSTEN Loratadine (Loratadine 10 Mg Tablet) 10 mg PO DAILY PRN PRN Reason: ALLERGIES Last Admin: 11/23/20 08:17 Dose: 10 mg Documented by: KIRSTEN Methylprednisolone (Methylprednisolone 125 Mg/2 Ml Vial) 125 mg IV NOW ONE Stop: 11/21/20 16:20 Last Admin: 11/21/20 17:01 Dose: 125 mg Documented by: MAILE Metoprolol Succinate (Metoprolol Er 25 Mg Tablet) 12.5 mg PO DAILY [facility] Last Admin: 11/23/20 08:18 Dose: 12.5 mg Documented by: Admin: 11/22/20 09:26 Dose: 12.5 mg Documented by: KIRSTEN Naloxone HCl (Naloxone 0.4 Mg/Ml Vial) 0.2 mg IV Q2MIN PRN PRN Reason: Opiate Reversal Ondansetron HCl (Ondansetron 4 Mg/2 Ml Inj) 4 mg IV Q8HR PRN PRN Reason: Nausea And Vomiting Last Admin: 11/21/20 22:20 Dose: 4 mg Documented by: MARYANA Pantoprazole Sodium (Pantoprazole 20 Mg Tablet) 20 mg PO DAILY@0700 [facility] Last Admin: 11/23/20 08:17 Dose: 20 mg Documented by: KIRSTEN Prednisone (Prednisone 20 Mg Tablet) 40 mg PO DAILY [facility] Last Admin: 11/23/20 08:17 Dose: 40 mg Documented by: Admin: 11/22/20 09:26 Dose: 40 mg Documented by: KIRSTEN Tramadol HCl (Tramadol 50 Mg Tablet) 50 mg PO Q4HR PRN PRN Reason: Pain (Scale Score 7-10) Trazodone HCl (Trazodone 50 Mg Tablet) 50 mg PO BEDTIME PRN PRN Reason: Sleep Last Admin: 11/22/20 23:43 Dose: 50 mg Documented by: SETH Vital Signs Vital signs: Vital Signs - 8 hr 11/21/20 13:24 11/21/20 14:19 11/21/20 14:20 Temperature 98.6 F Pulse Rate 95 H 91 H 90 Respiratory Rate 24 32 H 26 H Blood Pressure 162/85 H 152/83 H Pulse Oximetry 99 99 99 11/21/20 14:30 11/21/20 14:50 11/21/20 15:00 Temperature Pulse Rate 84 77 85 Respiratory Rate 24 24 25 H Blood Pressure 154/83 H Pulse Oximetry 99 98 99 11/21/20 15:01 11/21/20 15:30 11/21/20 15:31 Temperature Pulse Rate 87 82 84 Respiratory Rate 26 H 22 23 Blood Pressure 162/70 H 119/71 Pulse Oximetry 99 98 98 11/21/20 16:00 11/21/20 16:48 11/21/20 16:49 Temperature Pulse Rate 87 88 86 Respiratory Rate 25 H 20 16 Blood Pressure 124/72 160/82 H Pulse Oximetry 97 99 98 11/21/20 17:00 11/21/20 17:01 11/21/20 17:30 Temperature Pulse Rate 89 79 88 Respiratory Rate 22 20 27 H Blood Pressure 121/61 128/69 Pulse Oximetry 99 99 99 11/21/20 18:00 Temperature Pulse Rate 86 Respiratory Rate 26 H Blood Pressure Pulse Oximetry 96 Medical Decision Making <Mary Spence MD - Last Filed: 11/21/20 17:12> Medical Records Medical records reviewed: Yes I reviewed the patient's medical records. Lab Data Lab results reviewed: Yes I reviewed the patient's lab results. Result diagrams: 11/23/20 04:15 11/23/20 04:15 Labs: Lab Results 11/21/20 11/21/20 11/21/20 Range/Units 13:45 13:45 13:45 WBC 0.5 L* (4.5-11.0) X10^3/uL RBC 2.82 L (4.5-5.9) X10^6/uL Hgb 9.0 L (13.5-17.5) g/dL Hct 26.5 L (41-53) % MCV 94.0 (80-100) fL MCH 32.1 (26-34) PG MCHC 34.1 (30-36) % RDW 16.2 H (11.6-14.8) % Plt Count 58 L (150-400) X10^3/uL Neut % (Auto) Not Reportable Lymph % (Auto) Not Reportable [place] % (Auto) Not Reportable Eos % (Auto) Not Reportable Baso % (Auto) Not Reportable Lymph # (Auto) Not Reportable [place] # (Auto) Not Reportable Baso # (Auto) Not Reportable Total Counted 20 Seg Neutrophils % 25.0 L (38-70) % Lymphocytes % (Manual) 60.0 H (25-45) % Monocytes % (Manual) 15.0 H (2-11) % Neutrophils # (Manual) 125 L (1222-3752) /uL Platelet Estimate Decreased on smear RBC Morphology Normal morphology Sodium 138 (137-145) mmol/L Potassium 4.4 (3.4-5.1) mmol/L Chloride 104 (98-107) mmol/L Carbon Dioxide 25 (22-32) mmol/L BUN 28 H (9-20) mg/dL Creatinine 0.84 (0.66-1.25) mg/dL Estimated GFR > 60.0 (>60) mL/min BUN/Creatinine Ratio 33.3 H (6-22) Glucose 181 H (80-110) mg/dL Lactate 1.7 (0.7-2.1) mmol/L Calcium 9.2 (8.4-10.2) mg/dL Total Bilirubin 0.5 (0.2-1.3) mg/dL AST 18 (17-59) IU/L ALT 31 (<50) IU/L Alkaline Phosphatase 56 (38-126) U/L Total Creatine Kinase (55-170) U/L CK-MB (CK-2) CK-MB (CK-2) Rel Index Troponin I (0.01-0.034) ng/mL NT-Pro-B Natriuret Pep 252 H (<125) pg/mL Total Protein 6.5 (6.3-8.2) g/dL Albumin 4.0 (3.5-5.0) g/dL Globulin 2.5 (1.7-4.1) g/dL Albumin/Globulin Ratio 1.6 (1.0-2.8) Procalcitonin (<0.5) ng/mL SARS-CoV-2 (PCR) (Negative) RSV (PCR) (Not Detect) 11/21/20 11/21/20 11/21/20 Range/Units 13:54 13:56 16:42 WBC (4.5-11.0) X10^3/uL RBC (4.5-5.9) X10^6/uL Hgb (13.5-17.5) g/dL Hct (41-53) % MCV (80-100) fL MCH (26-34) PG MCHC (30-36) % RDW (11.6-14.8) % Plt Count (150-400) X10^3/uL Neut % (Auto) Lymph % (Auto) [place] % (Auto) Eos % (Auto) Baso % (Auto) Lymph # (Auto) [place] # (Auto) Baso # (Auto) Total Counted Seg Neutrophils % (38-70) % Lymphocytes % (Manual) (25-45) % Monocytes % (Manual) (2-11) % Neutrophils # (Manual) ([id number]) /uL Platelet Estimate RBC Morphology Sodium (137-145) mmol/L Potassium (3.4-5.1) mmol/L Chloride (98-107) mmol/L Carbon Dioxide (22-32) mmol/L BUN (9-20) mg/dL Creatinine (0.66-1.25) mg/dL Estimated GFR (>60) mL/min BUN/Creatinine Ratio (6-22) Glucose (80-110) mg/dL Lactate 2.4 H (0.7-2.1) mmol/L Calcium (8.4-10.2) mg/dL Total Bilirubin (0.2-1.3) mg/dL AST (17-59) IU/L ALT (<50) IU/L Alkaline Phosphatase (38-126) U/L Total Creatine Kinase 41 L (55-170) U/L CK-MB (CK-2) TNP CK-MB (CK-2) Rel Index TNP Troponin I < 0.012 (0.01-0.034) ng/mL NT-Pro-B Natriuret Pep (<125) pg/mL Total Protein (6.3-8.2) g/dL Albumin (3.5-5.0) g/dL Globulin (1.7-4.1) g/dL Albumin/Globulin Ratio (1.0-2.8) Procalcitonin (<0.5) ng/mL SARS-CoV-2 (PCR) Negative (Negative) RSV (PCR) (Not Detect) 11/21/20 11/21/20 11/21/20 Range/Units 16:47 17:11 17:11 WBC (4.5-11.0) X10^3/uL RBC (4.5-5.9) X10^6/uL Hgb (13.5-17.5) g/dL Hct (41-53) % MCV (80-100) fL MCH (26-34) PG MCHC (30-36) % RDW (11.6-14.8) % Plt Count (150-400) X10^3/uL Neut % (Auto) Lymph % (Auto) [place] % (Auto) Eos % (Auto) Baso % (Auto) Lymph # (Auto) [place] # (Auto) Baso # (Auto) Total Counted Seg Neutrophils % (38-70) % Lymphocytes % (Manual) (25-45) % Monocytes % (Manual) (2-11) % Neutrophils # (Manual) ([id number]) /uL Platelet Estimate RBC Morphology Sodium (137-145) mmol/L Potassium (3.4-5.1) mmol/L Chloride (98-107) mmol/L Carbon Dioxide (22-32) mmol/L BUN (9-20) mg/dL Creatinine (0.66-1.25) mg/dL Estimated GFR (>60) mL/min BUN/Creatinine Ratio (6-22) Glucose (80-110) mg/dL Lactate (0.7-2.1) mmol/L Calcium (8.4-10.2) mg/dL Total Bilirubin (0.2-1.3) mg/dL AST (17-59) IU/L ALT (<50) IU/L Alkaline Phosphatase (38-126) U/L Total Creatine Kinase (55-170) U/L CK-MB (CK-2) CK-MB (CK-2) Rel Index Troponin I (0.01-0.034) ng/mL NT-Pro-B Natriuret Pep (<125) pg/mL Total Protein (6.3-8.2) g/dL Albumin (3.5-5.0) g/dL Globulin (1.7-4.1) g/dL Albumin/Globulin Ratio (1.0-2.8) Procalcitonin 0.17 (<0.5) ng/mL SARS-CoV-2 (PCR) Negative (Negative) RSV (PCR) Not detected (Not Detect) Urine Dip Bedside Urine Glucose Negative Bedside Urine Bilirubin - Negative Bedside Urine Ketone - Negative Urine Specific [place] 1.020 Bedside Urine Occult Blood - Negative Bedside Urine pH 6.0 Bedside Urine Protein - Negative Bedside Urine Urobilinogen - Negative Bedside Urine Nitrite - Negative Bedside Urine Leukocytes - Negative Esterase Point of care testing: Urine Dip Bedside Urine Glucose Negative Bedside Urine Bilirubin - Negative Bedside Urine Ketone - Negative Urine Specific [place] 1.020 Bedside Urine Occult Blood - Negative Bedside Urine pH 6.0 Bedside Urine Protein - Negative Bedside Urine Urobilinogen - Negative Bedside Urine Nitrite - Negative Bedside Urine Leukocytes - Negative Esterase Imaging Data CT scan - chest: Radiologist's Impression: FINDINGS: Image quality: Excellent. Pulmonary arteries: Pulmonary arteries are normal in size, and demonstrate no intraluminal filling defects to suggest central pulmonary embolism. Lungs and pleura: The previously seen bilateral pulmonary nodules have decreased in size in number. For example, a peripheral left upper lobe nodule measures 0.5 x 0.4 cm (59/5), which previously measured 1.2 x [address] from 09/08/2020. A right upper lobe perifissural nodule measures 0.7 x 0.5 cm (132/5), which previously measured 1.8 x 1.3 cm. A medial right lower lobe nodule measures 0.7 x 0.5 cm (252/5), previously measuring 1.3 x 1.0 cm. No pleural effusions or pneumothorax. Central and peripheral airways are patent. Mediastinum: Heart size is normal, without pericardial effusion. Moderate atherosclerotic calcifications are seen in the coronary arteries and in the thoracic aorta. Post CABG changes are noted. No mediastinal or hilar adenopathy. Thoracic aorta is normal in caliber and enhancement. Esophagus is normal in caliber, without hiatal hernia. Bones and chest wall: A right chest Port-A-Cath is seen with catheter tip at the superior cavoatrial junction. Sternotomy changes are noted. No acute compression fracture. No suspicious bony lesions. Healing right anterolateral 4th through 8th rib fractures are noted, which appear new when compared to the prior CT. Thyroid gland is unremarkable. No axillary or supraclavicular adenopathy. Abdomen: Visualized upper abdominal solid organs appear normal in the early arterial phase of enhancement. IMPRESSION: 1. No acute pulmonary embolus. No acute abnormality is seen in the chest. 2. Markedly decreased size in number of the previously seen bilateral pulmonary nodules when compared to the CT from 09/08/2020. 3. Healing right-sided rib fractures are new when compared to the prior CT. Dictated by: Jarad Ayala M.D. on 11/21/2020 at 16:37 Chest x-ray: Radiologist's Impression: FINDINGS: Surgical changes and devices: Sternotomy wires, presumed prior CABG. Port-A-Cath from right-sided approach which extends with its tip distal S EC.. Lungs and pleura: Lungs are considering body habitus and reduced inspiratory volume. No pleural effusions or pneumothorax. Mediastinum: Mediastinal contours are normal. Heart size is normal. Bones and chest wall: No suspicious bony abnormalities. Soft tissues appear unremarkable. IMPRESSION: Prior presumed CABG right-sided approach, source of shortness of breath is not seen. Dictated by: Stuart Lovett M.D. on 11/21/2020 at 13:45 ECG Data Attestation: I personally reviewed and interpreted this ECG as follows: Interpretation: Sinus rhythm at a rate of 91 Leftward axis, normal intervals No acute ischemic changes MDM Narrative Medical decision making narrative: 69-year-old gentleman being treated with chemotherapy for small cell lung cancer. Fourth and probable final round is due next week. He presents with significant increased dyspnea and sputum change. Labs are notable for neutropenia with absolute neutrophil count at 1:25 a.m.. Worsening anemia with hemoglobin at 9 and hematocrit at 26.5 and mild thrombocytopenia without any active bleeding. Chemistries are reassuring, no evidence of acute coronary syndrome or sepsis or congestive heart failure. Clinical exam suggests a developing left-sided pneumonia based on rhonchi with dramatic wheeze in all lung [place]. He has responded somewhat to IV steroids and ipratropium/albuterol inhaler. Given the neutropenia I have started him on Zosyn as well as vancomycin. I am going to suggest at least 24 hours of hospitalization in observation to make sure that this is not a developing pneumonia or sepsis in the setting of absolute neutropenia secondary to chemotherapy verses COPD exacerbation. CT scan of the chest does not show any pulmonary emboli parenchymal infiltrates, pericardial or pleural effusions. He has not had any episodes of hypotension since being in the emergency department. <Amparo Silverman, DO - Last Filed: 11/25/20 01:20> Lab Data Labs: Lab Results 11/21/20 11/21/20 11/21/20 Range/Units 13:45 13:45 13:45 WBC 0.5 L* (4.5-11.0) X10^3/uL RBC 2.82 L (4.5-5.9) X10^6/uL Hgb 9.0 L (13.5-17.5) g/dL Hct 26.5 L (41-53) % MCV 94.0 (80-100) fL MCH 32.1 (26-34) PG MCHC 34.1 (30-36) % RDW 16.2 H (11.6-14.8) % Plt Count 58 L (150-400) X10^3/uL Neut % (Auto) Not Reportable Lymph % (Auto) Not Reportable [place] % (Auto) Not Reportable Eos % (Auto) Not Reportable Baso % (Auto) Not Reportable Lymph # (Auto) Not Reportable [place] # (Auto) Not Reportable Baso # (Auto) Not Reportable Total Counted 20 Seg Neutrophils % 25.0 L (38-70) % Lymphocytes % (Manual) 60.0 H (25-45) % Monocytes % (Manual) 15.0 H (2-11) % Neutrophils # (Manual) 125 L (6426-1920) /uL Platelet Estimate Decreased on smear RBC Morphology Normal morphology Sodium 138 (137-145) mmol/L Potassium 4.4 (3.4-5.1) mmol/L Chloride 104 (98-107) mmol/L Carbon Dioxide 25 (22-32) mmol/L BUN 28 H (9-20) mg/dL Creatinine 0.84 (0.66-1.25) mg/dL Estimated GFR > 60.0 (>60) mL/min BUN/Creatinine Ratio 33.3 H (6-22) Glucose 181 H (80-110) mg/dL Lactate 1.7 (0.7-2.1) mmol/L Calcium 9.2 (8.4-10.2) mg/dL Total Bilirubin 0.5 (0.2-1.3) mg/dL AST 18 (17-59) IU/L ALT 31 (<50) IU/L Alkaline Phosphatase 56 (38-126) U/L Total Creatine Kinase (55-170) U/L CK-MB (CK-2) CK-MB (CK-2) Rel Index Troponin I (0.01-0.034) ng/mL NT-Pro-B Natriuret Pep 252 H (<125) pg/mL Total Protein 6.5 (6.3-8.2) g/dL Albumin 4.0 (3.5-5.0) g/dL Globulin 2.5 (1.7-4.1) g/dL Albumin/Globulin Ratio 1.6 (1.0-2.8) Procalcitonin (<0.5) ng/mL SARS-CoV-2 (PCR) (Negative) RSV (PCR) (Not Detect) 11/21/20 11/21/20 11/21/20 Range/Units 13:54 13:56 16:42 WBC (4.5-11.0) X10^3/uL RBC (4.5-5.9) X10^6/uL Hgb (13.5-17.5) g/dL Hct (41-53) % MCV (80-100) fL MCH (26-34) PG MCHC (30-36) % RDW (11.6-14.8) % Plt Count (150-400) X10^3/uL Neut % (Auto) Lymph % (Auto) [place] % (Auto) Eos % (Auto) Baso % (Auto) Lymph # (Auto) [place] # (Auto) Baso # (Auto) Total Counted Seg Neutrophils % (38-70) % Lymphocytes % (Manual) (25-45) % Monocytes % (Manual) (2-11) % Neutrophils # (Manual) (9419-3010) /uL Platelet Estimate RBC Morphology Sodium (137-145) mmol/L Potassium (3.4-5.1) mmol/L Chloride (98-107) mmol/L Carbon Dioxide (22-32) mmol/L BUN (9-20) mg/dL Creatinine (0.66-1.25) mg/dL Estimated GFR (>60) mL/min BUN/Creatinine Ratio (6-22) Glucose (80-110) mg/dL Lactate 2.4 H (0.7-2.1) mmol/L Calcium (8.4-10.2) mg/dL Total Bilirubin (0.2-1.3) mg/dL AST (17-59) IU/L ALT (<50) IU/L Alkaline Phosphatase (38-126) U/L Total Creatine Kinase 41 L (55-170) U/L CK-MB (CK-2) TNP CK-MB (CK-2) Rel Index TNP Troponin I < 0.012 (0.01-0.034) ng/mL NT-Pro-B Natriuret Pep (<125) pg/mL Total Protein (6.3-8.2) g/dL Albumin (3.5-5.0) g/dL Globulin (1.7-4.1) g/dL Albumin/Globulin Ratio (1.0-2.8) Procalcitonin (<0.5) ng/mL SARS-CoV-2 (PCR) Negative (Negative) RSV (PCR) (Not Detect) 11/21/20 11/21/20 11/21/20 Range/Units 16:47 17:11 17:11 WBC (4.5-11.0) X10^3/uL RBC (4.5-5.9) X10^6/uL Hgb (13.5-17.5) g/dL Hct (41-53) % MCV (80-100) fL MCH (26-34) PG MCHC (30-36) % RDW (11.6-14.8) % Plt Count (150-400) X10^3/uL Neut % (Auto) Lymph % (Auto) [place] % (Auto) Eos % (Auto) Baso % (Auto) Lymph # (Auto) [place] # (Auto) Baso # (Auto) Total Counted Seg Neutrophils % (38-70) % Lymphocytes % (Manual) (25-45) % Monocytes % (Manual) (2-11) % Neutrophils # (Manual) (0073-1294) /uL Platelet Estimate RBC Morphology Sodium (137-145) mmol/L Potassium (3.4-5.1) mmol/L Chloride (98-107) mmol/L Carbon Dioxide (22-32) mmol/L BUN (9-20) mg/dL Creatinine (0.66-1.25) mg/dL Estimated GFR (>60) mL/min BUN/Creatinine Ratio (6-22) Glucose (80-110) mg/dL Lactate (0.7-2.1) mmol/L Calcium (8.4-10.2) mg/dL Total Bilirubin (0.2-1.3) mg/dL AST (17-59) IU/L ALT (<50) IU/L Alkaline Phosphatase (38-126) U/L Total Creatine Kinase (55-170) U/L CK-MB (CK-2) CK-MB (CK-2) Rel Index Troponin I (0.01-0.034) ng/mL NT-Pro-B Natriuret Pep (<125) pg/mL Total Protein (6.3-8.2) g/dL Albumin (3.5-5.0) g/dL Globulin (1.7-4.1) g/dL Albumin/Globulin Ratio (1.0-2.8) Procalcitonin 0.17 (<0.5) ng/mL SARS-CoV-2 (PCR) Negative (Negative) RSV (PCR) Not detected (Not Detect) Urine Dip Bedside Urine Glucose Negative Bedside Urine Bilirubin - Negative Bedside Urine Ketone - Negative Urine Specific [place] 1.020 Bedside Urine Occult Blood - Negative Bedside Urine pH 6.0 Bedside Urine Protein - Negative Bedside Urine Urobilinogen - Negative Bedside Urine Nitrite - Negative Bedside Urine Leukocytes - Negative Esterase Point of care testing: Urine Dip Bedside Urine Glucose Negative Bedside Urine Bilirubin - Negative Bedside Urine Ketone - Negative Urine Specific [place] 1.020 Bedside Urine Occult Blood - Negative Bedside Urine pH 6.0 Bedside Urine Protein - Negative Bedside Urine Urobilinogen - Negative Bedside Urine Nitrite - Negative Bedside Urine Leukocytes - Negative Esterase Discharge Plan Departure Patient Disposition: Admitted as Observation Clinical Impression: Pneumonia, History of lung cancer Admit Date/Time: 11/21/20 18:19 Admit Provider: Jonathan Harmon
--- NOTE | 2020-11-21 16:12 | DI.CT.S_ITS ---
PROCEDURE: CT ANGIO CHEST PE PROTOCOL INDICATIONS: dyspnea, lung cancer, productive cough, neurtopenia TECHNIQUE: After the administration of intravenous contrast, 2 mm thick sections acquired from the pulmonary apices to the posterior costophrenic angles. 3-dimensional maximum intensity projection (MIP) coronal and sagittal reformats were then acquired through the thorax. For radiation dose reduction, the following was used: automated exposure control, adjustment of mA and/or kV according to patient size. COMPARISON: [facility], CT, CT CHEST ABD PEL W CON, 09/08/2020, 8:18. FINDINGS: Image quality: Excellent. Pulmonary arteries: Pulmonary arteries are normal in size, and demonstrate no intraluminal filling defects to suggest central pulmonary embolism. Lungs and pleura: The previously seen bilateral pulmonary nodules have decreased in size in number. For example, a peripheral left upper lobe nodule measures 0.5 x 0.4 cm (59/5), which previously measured 1.2 x [address] from 09/08/2020. A right upper lobe perifissural nodule measures 0.7 x 0.5 cm (132/5), which previously measured 1.8 x 1.3 cm. A medial right lower lobe nodule measures 0.7 x 0.5 cm (252/5), previously measuring 1.3 x 1.0 cm. No pleural effusions or pneumothorax. Central and peripheral airways are patent. Mediastinum: Heart size is normal, without pericardial effusion. Moderate atherosclerotic calcifications are seen in the coronary arteries and in the thoracic aorta. Post CABG changes are noted. No mediastinal or hilar adenopathy. Thoracic aorta is normal in caliber and enhancement. Esophagus is normal in caliber, without hiatal hernia. Bones and chest wall: A right chest Port-A-Cath is seen with catheter tip at the superior cavoatrial junction. Sternotomy changes are noted. No acute compression fracture. No suspicious bony lesions. Healing right anterolateral 4th through 8th rib fractures are noted, which appear new when compared to the prior CT. Thyroid gland is unremarkable. No axillary or supraclavicular adenopathy. Abdomen: Visualized upper abdominal solid organs appear normal in the early arterial phase of enhancement. IMPRESSION: 1. No acute pulmonary embolus. No acute abnormality is seen in the chest. 2. Markedly decreased size in number of the previously seen bilateral pulmonary nodules when compared to the CT from 09/08/2020. 3. Healing right-sided rib fractures are new when compared to the prior CT. Dictated by: Jarad Ayala M.D. on 11/21/2020 at 16:37 Approved by: Jarad Ayala M.D. on 11/21/2020 at 16:55
[2020-11-21] MEDS: methylPREDNISolone 125 MG/2 ML VIAL IV (17:01)
[2020-11-21] MEDS: PIPERACILLIN/TAZO 4.5 GM in SODIUM CHLORIDE 0.9% 100 ML 200 ML IV (17:01)
[2020-11-21 17:11] LABS: Lactate (Lactic Acid) 2.4 mmol/L (0.7-2.1)
[2020-11-21 17:57] LABS: Procalcitonin 0.17 ng/mL (<0.5)
[2020-11-21 17:59] LABS: COVID19 - ADMIT (NP swab/PCR) Negative (Negative)
[2020-11-21] MEDS: VANCOMYCIN 1,500 MG/300 ML PIGGYBACK 200 MG IV (18:13)
--- NOTE | 2020-11-21 18:54 | DI.ECHO.S_ITS ---
[facility] +---------+ : : [address] : : : : [id number] : : : : Phone: [phone]+ Echocardiogram Report + + :Name: JONNY HELLER Study Date: 11/22/2020 Height: 69 in : :[facility] ReadingLocation: Weight: 240 lb : : Gender: Male BSA: 2.2 m2 : :: 1950 Age: 69 yrs BP: 116/62 mmHg: :Reason For Study: CONGESTIVE HEART FAILURE : :Ordering Physician: YANI, : :NICK Performed By: Caitie Berger : :Referring: NICK LOMELI : + + Interpretation Summary 1) Normal left ventricular size, wall motion, and systolic function (EF 55- 60%). 2) Grossly, mildly enlarged right ventricular size with normal function. 3) No significant valvular abnormalities. 4) The ascending aorta is moderately enlarged at 4.5cm. 5) Compared to the Echo done 12/22/2019, no significant change on the visualized portions of the study. Procedure: A two-dimensional transthoracic echocardiogram with color flow and Doppler was performed. Comparison is made with the echocardiogram of 12/22/2019. The study quality was technically difficult. A contrast injection of Definity was performed to improve assessment of LV function. The patient was in sinus rhythm with heart rates between 63-91 bpm during the exam. Left Ventricle: The left ventricle is normal in size. There is mild concentric left ventricular hypertrophy. The ejection fraction is estimated to be 55-60%. Left ventricular systolic function appears normal without focal wall motion abnormalities. Right Ventricle: The right ventricle is not well visualized. The right ventricle is mildly dilated. The right ventricular systolic function is normal. Atria: Both atria are normal in size. There is no Doppler evidence for an interatrial shunt. Mitral Valve: The mitral valve leaflets appear mildly thickened, but open well. There is trace mitral regurgitation. Aortic Valve: The aortic valve opens well. The aortic valve is slightly calcified. There is no aortic valve stenosis. There is trace aortic regurgitation. Tricuspid Valve: The tricuspid valve is not well visualized, but is grossly normal. Pulmonary artery pressures cannot be estimated because of the lack of a measurable TR jet velocity but the IVC suggests a CVP of around 8 mmHg. There is a trace or physiologic amount of tricuspid regurgitation. Pulmonic Valve: The pulmonic valve is not well visualized. There is no pulmonic valvular regurgitation. Great Vessels: The aortic root is mildly dilated. The ascending aorta is moderately enlarged. The IVC is of normal diameter and collapses less than 50% with a sniff. This suggests a right atrial pressure of 8 mm Hg. Pericardium/ Pleura There is no pericardial effusion. There is no pleural effusion. MMode/2D Measurements & Calculations LVIDd: 4.9 cm LVOT diam: 2.2 cm LVIDs: 2.8 cm Ao root diam: 4.1 cm FS: 43.4 % asc Aorta Diam: 4.5 cm EPSS: 0.96 cm Ao Arch Diam (Prox Trans): 3.9 cm IVSd: 1.0 cm LVPWd: 1.1 cm LV sanchez. diameter/BSA (cm/m^2): 2.2 LV sys. diameter/BSA (cm/m^2): 1.3 LA A2 area: 23.9 cm2 RA long axis: 4.6 cm LA A4 area: 15.1 cm2 RA area: 14.5 cm2 LA length (vol): 4.7 cm RA vol: 38.8 ml LA vol: 65.0 ml RA : 17.4 ml/m2 LA vol index: 29.1 ml/m2 IVC diam: 2.0 cm TAPSE: 1.9 cm Doppler Measurements & Calculations Ao V2 max: 154.5 cm/sec LVOT Max Zhang: 98.1 cm/sec Ao V2 mean: 99.7 cm/sec LV V1 max P.8 mmHg Ao max P.5 mmHg LV V1 VTI: 21.0 cm Ao mean P.6 mmHg BONNIE(I,D): 2.9 cm2 Ao V2 VTI: 28.1 cm BONNIE(V,D): 2.5 cm2 sev ratio: 0.75 BONNIE indexed to BSA (cm^2/m^2): 1.3 MV E max zhang: 70.6 cm/sec PA V2 max: 102.2 cm/sec Med Peak E' Zhang: 8.5 cm/sec PA V2 mean: 70.3 cm/sec E/E' med: 8.3 PA mean P.2 mmHg Lat Peak E' Zhang: 12.6 cm/sec PA pr(Accel): 43.0 mmHg E/E' lat: 5.6 E/e' average: 6.9 MV dec time: 0.22 sec SVLVOT): 81.4 ml Reading Physician:01:00 PM
[2020-11-21 18:56] LABS: Reflexed Lactate in 2 Hours Y
[2020-11-21 20:11] LABS: Lactate 2HR (Lactic Acid Rflx) 3.2 mmol/L (0.7-2.1)
--- NOTE | 2020-11-21 20:16 | P.HP_ITS ---
History of Present Illness History of Present Illness Date Patient Seen: 11/21/20 Time Patient Seen: 18:18 Date of Onset of Symptoms: 11/14/20 Chief complaint: cant breathe at all Narrative: 69M with PMH of prostate cancer, small cell lung cancer on chemo and filgastrim, CAD s/p CABG, hypertension who presents with increasing sob and productive cough for the last week. He has recently got round 3/ through [facility] for chemo. He has recently had an increase in his dexamethasone. He has no known COPD or asthma, but does have an inhaler at home that he uses rarely. He notes dyspnea with exertion with walking across the room. He feels wheezy, and also has been having productive cough with green sputum. He has no fevers, chest pain, or orthopnea. He has noticed worse swelling in his lower extremities, abdomen, and around his neck and humps of shoulders. In the ER, workup was done. Vitals were notable for tachypnea with normal oxygen saturation. WBC was 0.5, with 100 PMNs, hgb 9.0, plts 58. Cxray and CT chest showed no acute process. BNP 252. troponin negative x1. procal 0.17. He was given vancomycin and zosyn, methylpred and nebulizers and admitted for further treatment. Patient History Medical History Allergies Ankle pain Chronic back pain Fractures Hepatitis Liver disease Prostate cancer Surgical History History of heart bypass surgery (~2017) History of prostatectomy Family & Social History Family History Father Cancer Diabetes mellitus History of heart disease Hypertension Hyperlipidemia Mother Diabetes mellitus History of heart disease Brother Diabetes mellitus Sister Cancer Diabetes mellitus Social History: household members family Safety & Behavioral: Feels Safe in Current Yes Environment Been Physically Hurt or No Threatened By a Person Tobacco & Substance use: Smoking Status Former smoker alcohol intake frequency holiday/special occasion Substance Use Type does not use Meds Home Medications and Allergies Home Medications Medication Instructions Recorded Confirmed Type albuterol sulfate 90 mcg/actuation 2 puff INHALATION Q6H PRN 06/17/19 12/31/19 History aerosol inhaler aspirin 81 mg tablet,delayed 81 mg PO DAILY 06/17/19 12/31/19 History release atorvastatin 40 mg tablet 40 mg PO DAILY 06/17/19 12/31/19 History escitalopram oxalate 10 mg tablet 10 mg PO DAILY 06/17/19 12/31/19 History lisinopril 10 mg tablet 10 mg PO DAILY 06/17/19 12/31/19 History omeprazole 20 mg capsule,delayed 20 mg PO DAILY 06/17/19 12/31/19 History release cetirizine [Allergy Relief 10 mg PO DAILY PRN 12/21/19 12/31/19 History (cetirizine)] acetaminophen 650 mg PO Q4H PRN 12/22/19 12/31/19 History metoprolol succinate 25 mg 12.5 mg PO DAILY 04/11/20 History tablet,extended release 24 hr hydrocodone-acetaminophen [[place]osc[place]] 1 tab PO Q4-6H PRN #14 tab 09/08/20 Rx Allergies Allergy/AdvReac Type Severity Reaction Status Date / Time codeine Allergy Vomiting Verified 11/21/20 13:27 Review of Systems Review of Systems Narrative: 14 systems reviewed and negative aside from HPI Exam Vital Signs (past 8 hours): - 11/21/20 13:24 11/21/20 14:19 11/21/20 14:20 Temperature 98.6 F Pulse Rate 95 H 91 H 90 Respiratory Rate 24 32 H 26 H Blood Pressure 162/85 H 152/83 H Pulse Oximetry 99 99 99 11/21/20 14:30 11/21/20 14:50 11/21/20 15:00 Temperature Pulse Rate 84 77 85 Respiratory Rate 24 24 25 H Blood Pressure 154/83 H Pulse Oximetry 99 98 99 11/21/20 15:01 11/21/20 15:30 11/21/20 15:31 Temperature Pulse Rate 87 82 84 Respiratory Rate 26 H 22 23 Blood Pressure 162/70 H 119/71 Pulse Oximetry 99 98 98 11/21/20 16:00 11/21/20 16:48 11/21/20 16:49 Temperature Pulse Rate 87 88 86 Respiratory Rate 25 H 20 16 Blood Pressure 124/72 160/82 H Pulse Oximetry 97 99 98 11/21/20 17:00 11/21/20 17:01 11/21/20 17:30 Temperature Pulse Rate 89 79 88 Respiratory Rate 22 20 27 H Blood Pressure 121/61 128/69 Pulse Oximetry 99 99 99 11/21/20 18:00 11/21/20 19:50 Temperature 97.2 F L Pulse Rate 86 94 H Respiratory Rate 26 H 19 Blood Pressure 123/99 H Pulse Oximetry 96 97 Oxygen Delivery Method Room Air Oxygen Flow Rate 0 Narrative Exam Narrative: GEN: mild respiratory distress HEENT: moist mucous membranes, PERRL NECK: thick neck, no masses noted, has humps in shoulders CV: RRR with no murmurs ABD: slightly distended, obese, no pain to palpation PULM: wheezes bilaterally EXT: warm and well perfused with 1+ edema NEURO: AAOx3, moving all extremities with no gross abnormalities PSYCH: pleasant mood Objective Labs Result Diagrams: 11/21/20 13:45 11/21/20 13:45 Labs: Laboratory Results - last 24 hr 11/21/20 11/21/20 11/21/20 13:45 13:45 13:45 WBC 0.5 L* RBC 2.82 L Hgb 9.0 L Hct 26.5 L MCV 94.0 MCH 32.1 MCHC 34.1 RDW 16.2 H Plt Count 58 L Neut % (Auto) Not Reportable Lymph % (Auto) Not Reportable [place] % (Auto) Not Reportable Eos % (Auto) Not Reportable Baso % (Auto) Not Reportable Lymph # (Auto) Not Reportable [place] # (Auto) Not Reportable Baso # (Auto) Not Reportable Total Counted 20 Seg Neutrophils % 25.0 L Lymphocytes % (Manual) 60.0 H Monocytes % (Manual) 15.0 H Neutrophils # (Manual) 125 L Platelet Estimate Decreased on smear RBC Morphology Normal morphology Sodium 138 Potassium 4.4 Chloride 104 Carbon Dioxide 25 BUN 28 H Creatinine 0.84 Estimated GFR > 60.0 BUN/Creatinine Ratio 33.3 H Glucose 181 H Lactate 1.7 Calcium 9.2 Total Bilirubin 0.5 AST 18 ALT 31 Alkaline Phosphatase 56 Total Creatine Kinase CK-MB (CK-2) CK-MB (CK-2) Rel Index Troponin I NT-Pro-B Natriuret Pep 252 H Total Protein 6.5 Albumin 4.0 Globulin 2.5 Albumin/Globulin Ratio 1.6 Procalcitonin SARS-CoV-2 (PCR) 11/21/20 11/21/20 11/21/20 13:54 13:56 16:42 WBC RBC Hgb Hct MCV MCH MCHC RDW Plt Count Neut % (Auto) Lymph % (Auto) [place] % (Auto) Eos % (Auto) Baso % (Auto) Lymph # (Auto) [place] # (Auto) Baso # (Auto) Total Counted Seg Neutrophils % Lymphocytes % (Manual) Monocytes % (Manual) Neutrophils # (Manual) Platelet Estimate RBC Morphology Sodium Potassium Chloride Carbon Dioxide BUN Creatinine Estimated GFR BUN/Creatinine Ratio Glucose Lactate 2.4 H Calcium Total Bilirubin AST ALT Alkaline Phosphatase Total Creatine Kinase 41 L CK-MB (CK-2) TNP CK-MB (CK-2) Rel Index TNP Troponin I < 0.012 NT-Pro-B Natriuret Pep Total Protein Albumin Globulin Albumin/Globulin Ratio Procalcitonin SARS-CoV-2 (PCR) Negative 11/21/20 11/21/20 16:47 17:11 WBC RBC Hgb Hct MCV MCH MCHC RDW Plt Count Neut % (Auto) Lymph % (Auto) [place] % (Auto) Eos % (Auto) Baso % (Auto) Lymph # (Auto) [place] # (Auto) Baso # (Auto) Total Counted Seg Neutrophils % Lymphocytes % (Manual) Monocytes % (Manual) Neutrophils # (Manual) Platelet Estimate RBC Morphology Sodium Potassium Chloride Carbon Dioxide BUN Creatinine Estimated GFR BUN/Creatinine Ratio Glucose Lactate Calcium Total Bilirubin AST ALT Alkaline Phosphatase Total Creatine Kinase CK-MB (CK-2) CK-MB (CK-2) Rel Index Troponin I NT-Pro-B Natriuret Pep Total Protein Albumin Globulin Albumin/Globulin Ratio Procalcitonin 0.17 SARS-CoV-2 (PCR) Negative Assessment & Plan Assessment & Plan narrative: Mr. Spicer 69M with PMH small cell lung CA on chemo, prostate CA, CAD who presents with progressively worsening shortness of breath. 1. Acute respiratory distress - etiology appears more consistent with probable COPD, though has no definitive diagnosis. No evidence of pna on imaging. CTA showed no PE. No significant fluid in lungs. No abnormalities on neck imaging. Has improved with nebulizers. Will plan for around the clock nebulizers, PRN for SOB as well. Continue with prednisone 40mg daily. For now given neutropenia will cover with ceftriaxone and azithromycin though pneumonia is lower on differential. COVID negative. RSV pending. CHF is also a possibility will order a dose of IV lasix today. Order an ECHO. BNP is mildly elevated, but may be low due to obesity. Follow up second troponin. 2. Neutropenia. acute - secondary to chemotherapy, will continue on his home dose of filgastrim, order neutropenic precautions, check cbc daily 3. Small cell lung cancer - on chemotherapy as outpatient, no acute changes here, continue to monitor 4. history of prostate cancer - follow up as outpatient for chronic problem 5. CAD s/p CABG - continue on home aspirin and statin, and rule out acute ID with one more troponin 6. Pancytopenia - in addition to neutropenia, also has thrombocytopenia, and anemia. For now no indication for platelet or blood transfusion but will monitor daily 7. Mildly elevated lactate - initially normal, then received nebulizers. No evidence of any hypotension. Lactate could be related to albuterol use, will continue to monitor. For now no evidence of sepsis. DVT ppx: heparin IV fluids: none Cardiac diet Code status: ok to intubate, no chest compressions. Proxy is daughter rosa COVID-19 COVID-19 status: Negative Result date/Date tested (Pos, Neg/Pending): 11/21/20 Time Spent With Patient Time with patient: 15-24 minutes Quality MIPS - Admit I confirm the patient?s Advance Care Plan is present, Code status is documented, Surrogate decision maker is in patient?s record [If Yes, STOP here]: Yes
[2020-11-21] MEDS: ACETAMINOPHEN 325 MG TABLET 650 MG PO (20:23)
[2020-11-21 20:37] LABS: Troponin I < 0.012 ng/mL (0.01-0.034)
[2020-11-21 20:52] LABS: Respiratory Syncytial Virus Not Detected (Not Detect)
[2020-11-21] MEDS: AZITHROMYCIN 500 MG in DEXTROSE 5% IN WATER 250 ML IV (21:03)
[2020-11-21] MEDS: HEPARIN 5,000 UNIT/ML VIAL 5000 UNIT SUBCUT (21:07)
[2020-11-21] MEDS: ONDANSETRON 4 MG/2 ML INJ IV (22:20)
[2020-11-21] MEDS: CEFTRIAXONE 1 GM/50 ML FROZ.PIGGY IV (22:36)
--- NOTE | 2020-11-21 22:39 | PC.NURSE ---
Admit/Evening Shift Note- Patient arrived to room via stretcher from ER. Patient able to walk on his own from stretcher to bed with steady gait noted. Patient alert and oriented and able to make needs known to staff. Admit questions done. medications reviewed, physical assessment and skin check completed. Patient oriented to bed and bed controls, room, lights, phone, menu, bathroom, and call ruelas/TV remote. Safety measures in place. Patient agrees to call for assistance. Call ruelas and phone within reach. will continue to monitor.
[2020-11-21] MEDS: ALBUTEROL 2.5 MG/3 ML NEB (ADULT) INH (23:06)
[2020-11-22] VITALS (9 sets, daily range): BP systolic 114–141; BP diastolic 68–95; PULSE 74–94; RESP 16–19; TEMP 35.8–36.7; O2SAT 97–99
[2020-11-22 04:33] LABS: BUN Creatinine Ratio 31.2 (6-22); Blood Urea Nitrogen 24 mg/dL (9-20); Carbon Dioxide 23 mmol/L (22-32); Chloride 104 mmol/L (98-107); Estimated Glomerular Filt Rate > 60.0 mL/min (>60); Glucose 186 mg/dL (80-110); HEMOLYSIS < 15 (0-50); Potassium 4.3 mmol/L (3.4-5.1); Sodium 137 mmol/L (137-145)
[2020-11-22 04:43] LABS: Hemoglobin 8.2 g/dL (13.5-17.5); Mean Corpuscular HGB Conc 33.3 % (30-36); Mean Corpuscular Hemoglobin 31.4 PG (26-34); Mean Corpuscular Volume 94.2 fL (80-100); Red Blood Cell Count 2.62 X10^6/uL (4.5-5.9); Red Cell Distribution Width 16.4 % (11.6-14.8)
[2020-11-22 04:51] LABS: Add Manual Diff / Slide Review YES; Hematocrit 24.7 % (41-53); Platelet Count 46 X10^3/uL (150-400)
[2020-11-22 04:55] LABS: White Blood Cell Count 0.7 X10^3/uL (4.5-11.0)
[2020-11-22 06:12] LABS: Neutrophils Absolute Manual 280 /uL (3000-5900); Nucleated Red Blood Cells 1 #/Diff; Polychromasia 1+; Total Cells Counted 25
[2020-11-22 06:14] LABS: Dohle Bodies 2+
[2020-11-22 08:18] LABS: Lactate (Lactic Acid) 2.7 mmol/L (0.7-2.1)
[2020-11-22] MEDS: ALBUTEROL/IPRATROPIUM 3 ML AMPUL INH ×3 (08:35→23:09)
[2020-11-22] MEDS: HEPARIN 5,000 UNIT/ML VIAL 5000 UNIT SUBCUT (09:25)
[2020-11-22] MEDS: ACETAMINOPHEN 325 MG TABLET 650 MG PO ×2 (09:25→22:06)
[2020-11-22] MEDS: FUROSEMIDE 40 MG/4 ML VIAL IV (09:25)
[2020-11-22] MEDS: METOPROLOL ER 25 MG TABLET 12.5 MG PO (09:26)
[2020-11-22] MEDS: ATORVASTATIN 20 MG TABLET 40 MG PO (09:26)
[2020-11-22] MEDS: ASPIRIN EC 81 MG TABLET PO (09:26)
[2020-11-22] MEDS: predniSONE 20 MG TABLET 40 MG PO (09:26)
[2020-11-22 10:50] LABS: Reflexed Lactate in 2 Hours Y
--- NOTE | 2020-11-22 11:15 | PC.NURSE ---
Assess- Patient is independent in his room, he is urinating quite often as he was given 40mg of iv lasix. A&Ox3, given tylenol for a headache and helpful. LS ausculated throughout and patient does have some crackles, with decreased sounds in the r.lower lobe. He is getting an echo done now and may be able to discharge home later today.
[2020-11-22 12:24] LABS: Lactate 2HR (Lactic Acid Rflx) 2.7 mmol/L (0.7-2.1)
[2020-11-22] MEDS: ALBUTEROL 2.5 MG/3 ML NEB (ADULT) INH (13:17)
--- NOTE | 2020-11-22 15:53 | P.PN_ITS ---
Subjective Subjective Interval history: He initially was feeling much better this morning. However he did get up and developed worsening cough and shortness of breath. Otherwise he continues to note improvement in his breathing. Exam Vital Signs (past 8 hours): - 11/22/20 08:36 11/22/20 12:00 11/22/20 13:27 Temperature 97.6 F Pulse Rate 88 82 91 H Respiratory Rate 16 16 16 Blood Pressure 120/70 Pulse Oximetry 98 99 97 Oxygen Delivery Method Room Air Oxygen Flow Rate 0 Narrative Exam Narrative: Narrative: GEN: mild respiratory distress HEENT: moist mucous membranes, PERRL NECK: thick neck, no masses noted, has humps in shoulders CV: RRR with no murmurs ABD: slightly distended, obese, no pain to palpation PULM: improving wheezes bilaterally, faint crackle at base EXT: warm and well perfused with 1+ edema NEURO: AAOx3, moving all extremities with no gross abnormalities PSYCH: pleasant mood Objective Labs Result Diagrams: 11/22/20 04:05 11/22/20 04:05 Labs: Laboratory Results - last 24 hr 11/21/20 11/21/20 11/21/20 16:42 16:47 17:11 WBC RBC Hgb Hct MCV MCH MCHC RDW Plt Count Neut % (Auto) Lymph % (Auto) [place] % (Auto) Eos % (Auto) Baso % (Auto) Lymph # (Auto) [place] # (Auto) Baso # (Auto) Total Counted Seg Neutrophils % Band Neutrophils % Lymphocytes % (Manual) Monocytes % (Manual) Neutrophils # (Manual) Nucleated RBCs Dohle Bodies RBC Morphology Polychromasia Sodium Potassium Chloride Carbon Dioxide BUN Creatinine Estimated GFR BUN/Creatinine Ratio Glucose Lactate 2.4 H Calcium Troponin I Procalcitonin 0.17 SARS-CoV-2 (PCR) Negative RSV (PCR) 11/21/20 11/21/20 11/21/20 17:11 19:39 20:05 WBC RBC Hgb Hct MCV MCH MCHC RDW Plt Count Neut % (Auto) Lymph % (Auto) [place] % (Auto) Eos % (Auto) Baso % (Auto) Lymph # (Auto) [place] # (Auto) Baso # (Auto) Total Counted Seg Neutrophils % Band Neutrophils % Lymphocytes % (Manual) Monocytes % (Manual) Neutrophils # (Manual) Nucleated RBCs Dohle Bodies RBC Morphology Polychromasia Sodium Potassium Chloride Carbon Dioxide BUN Creatinine Estimated GFR BUN/Creatinine Ratio Glucose Lactate 3.2 H Calcium Troponin I < 0.012 Procalcitonin SARS-CoV-2 (PCR) RSV (PCR) Not detected 11/22/20 11/22/20 11/22/20 04:05 04:05 08:50 WBC 0.7 L* RBC 2.62 L Hgb 8.2 L Hct 24.7 L MCV 94.2 MCH 31.4 MCHC 33.3 RDW 16.4 H Plt Count 46 L Neut % (Auto) Not Reportable Lymph % (Auto) Not Reportable [place] % (Auto) Not Reportable Eos % (Auto) Not Reportable Baso % (Auto) Not Reportable Lymph # (Auto) Not Reportable [place] # (Auto) Not Reportable Baso # (Auto) Not Reportable Total Counted 25 Seg Neutrophils % 28.0 L Band Neutrophils % 12.0 H Lymphocytes % (Manual) 48.0 H Monocytes % (Manual) 12.0 H Neutrophils # (Manual) 280 L Nucleated RBCs 1 H Dohle Bodies 2+ H RBC Morphology See below Polychromasia 1+ H Sodium 137 Potassium 4.3 Chloride 104 Carbon Dioxide 23 BUN 24 H Creatinine 0.77 Estimated GFR > 60.0 BUN/Creatinine Ratio 31.2 H Glucose 186 H Lactate 2.7 H Calcium 9.0 Troponin I Procalcitonin SARS-CoV-2 (PCR) RSV (PCR) 11/22/20 12:00 WBC RBC Hgb Hct MCV MCH MCHC RDW Plt Count Neut % (Auto) Lymph % (Auto) [place] % (Auto) Eos % (Auto) Baso % (Auto) Lymph # (Auto) [place] # (Auto) Baso # (Auto) Total Counted Seg Neutrophils % Band Neutrophils % Lymphocytes % (Manual) Monocytes % (Manual) Neutrophils # (Manual) Nucleated RBCs Dohle Bodies RBC Morphology Polychromasia Sodium Potassium Chloride Carbon Dioxide BUN Creatinine Estimated GFR BUN/Creatinine Ratio Glucose Lactate 2.7 H Calcium Troponin I Procalcitonin SARS-CoV-2 (PCR) RSV (PCR) [facility] Medical History Allergies Ankle pain Chronic back pain Fractures Hepatitis Liver disease Prostate cancer Surgical History History of heart bypass surgery (~2017) History of prostatectomy Family History Father Cancer Diabetes mellitus History of heart disease Hypertension Hyperlipidemia Mother Diabetes mellitus History of heart disease Brother Diabetes mellitus Sister Cancer Diabetes mellitus Social History household members: family and other Smoking Status: Former smoker Assessment & Plan Assessment & Plan narrative: 69M with PMH small cell lung CA on chemo, prostate CA, CAD who presents with progressively worsening shortness of breath. 1. Acute respiratory distress - etiology appears more consistent with probable acute COPD, though has no definitive diagnosis. No evidence of pna on imaging. CTA showed no PE. No significant fluid in lungs. No abnormalities on neck imagi ng. Has improved with nebulizers. Will plan for around the clock nebulizers, PRN for SOB as well. Continue with prednisone 40mg daily. For now given neutropenia will cover with ceftriaxone and azithromycin though pneumonia is lower on differential. COVID negative. Also has probable acute CHF with evidence of volume overload. ECHO pending. BNP is mildly elevated, but may be falsely low due to obesity. troponins negative 2. Neutropenia. acute - secondary to chemotherapy, will continue on his home dose of filgastrim, order neutropenic precautions, check cbc daily 3. Small cell lung cancer - on chemotherapy as outpatient, no acute changes here, continue to monitor 4. history of prostate cancer - follow up as outpatient for chronic problem 5. CAD s/p CABG - continue on home aspirin and statin, and rule out acute CA with one more troponin 6. Pancytopenia - in addition to neutropenia, also has thrombocytopenia, and anemia. For now no indication for platelet or blood transfusion but will monitor daily 7. Mildly elevated lactate - initially normal, then received nebulizers. No evidence of any hypotension. Lactate could be related to albuterol use, will continue to monitor. For now no evidence of sepsis. 8. Obesity - BMI of 35.4. Possibly worse in setting of chronic steroids for can cer DVT ppx: heparin IV fluids: none Cardiac diet Code status: ok to intubate, no chest compressions. Proxy is daughter rosa
[2020-11-22 19:16] LABS: BUN Creatinine Ratio 34.1 (6-22); Blood Urea Nitrogen 28 mg/dL (9-20); Calcium 9.6 mg/dL (8.4-10.2); Carbon Dioxide 25 mmol/L (22-32); Chloride 100 mmol/L (98-107); Estimated Glomerular Filt Rate > 60.0 mL/min (>60); Glucose 224 mg/dL (80-110); HEMOLYSIS < 15 (0-50); Potassium 4.5 mmol/L (3.4-5.1); Sodium 136 mmol/L (137-145)
[2020-11-22] MEDS: MAGNESIUM SULFATE 4 GM/100 ML PIGGYBACK IV (22:00)
[2020-11-22] MEDS: FILGRASTIM-AAFI 480 MCG/0.8 ML SYRINGE SUBCUT (22:34)
[2020-11-22] MEDS: AZITHROMYCIN 500 MG in DEXTROSE 5% IN WATER 250 ML IV (23:41)
[2020-11-22] MEDS: TRAZODONE 50 MG TABLET PO (23:43)
--- NOTE | 2020-11-22 23:51 | PC.NURSE ---
Patient expresses his anger that he has yet to get his daily injection this evening. Patient reports to this nurse he has a special injections medication that he gives himself after his chemo treatments. Over 2 hours was spent with patient figuring out specific chemo schedule and medication regime. Patient after 2 hours decided that since he had not received medication that he was going to leave AMA so he could go home and get better care there. Patient had made mult. comments in a angered rage that we don't care about his health care here, If we cared we wouldn't have messed up all his medication. Patient expresses he had multiple in depth conversations with Day shift nurse on 11/22/20, she took his medication calender schedule and and a packet listing his medications. Said packet was copied and copy was found in chart, but no calendar was found. Patient states he explained the importance of this injection to the day shift nurse. During this time patient had mult IV medications due at which he was refusing to take as he was just going to leave anyway. This nurse did convince patient to take IV medications while the situation was being viewed and hopefully solved. Patient was agreeable to start magnesium, then refused and stated I only want my anti-bx done. Injectable medication was reviewed and ordered by evening shift provider, pharmacy came after hours and hand delivered injection medication to this nurse. After Medication discrepancy was resolved patient choose to stay and continue care at hospital and cont. IV medication treatments. Magnesium was given 2 hours late see OCT. Anti-bx started late post mag. rider completion. Patient expresses his graditude after all had been resolved and was very apologetic for his actions and raising his voice at this nurse.
[2020-11-23] VITALS: BP 134/86; PULSE 95; RESP 18; TEMP 36.4; O2SAT 98
[2020-11-23] MEDS: CEFTRIAXONE 1 GM/50 ML FROZ.PIGGY IV (01:13)
--- NOTE | 2020-11-23 04:17 | PC.NURSE ---
blood draw done by nurse at about 0415. new port cap placed and heparin flushed, pt tolerated well.
[2020-11-23 04:45] LABS: BUN Creatinine Ratio 35.1 (6-22); Blood Urea Nitrogen 27 mg/dL (9-20); Calcium 9.3 mg/dL (8.4-10.2); Carbon Dioxide 26 mmol/L (22-32); Chloride 102 mmol/L (98-107); Estimated Glomerular Filt Rate > 60.0 mL/min (>60); Glucose 112 mg/dL (80-110); HEMOLYSIS < 15 (0-50); Hemoglobin 8.5 g/dL (13.5-17.5); Mean Corpuscular HGB Conc 34.3 % (30-36); Mean Corpuscular Volume 93.4 fL (80-100); Platelet Count 37 X10^3/uL (150-400); Potassium 3.9 mmol/L (3.4-5.1); Red Blood Cell Count 2.67 X10^6/uL (4.5-5.9); Red Cell Distribution Width 16.1 % (11.6-14.8); Sodium 136 mmol/L (137-145); White Blood Cell Count 2.1 X10^3/uL (4.5-11.0)
[2020-11-23 04:53] LABS: Hematocrit 24.9 % (41-53)
[2020-11-23 06:04] VITALS: BP 134/88; PULSE 75; RESP 16; TEMP 36.6; O2SAT 97
[2020-11-23] MEDS: LORATADINE 10 MG TABLET PO (08:17)
[2020-11-23] MEDS: lisinopriL 10 MG TABLET PO (08:17)
[2020-11-23] MEDS: predniSONE 20 MG TABLET 40 MG PO (08:17)
[2020-11-23] MEDS: ASPIRIN EC 81 MG TABLET PO (08:17)
[2020-11-23] MEDS: PANTOPRAZOLE 20 MG TABLET PO (08:17)
[2020-11-23] MEDS: ESCITALOPRAM 10 MG TABLET PO (08:18)
[2020-11-23] MEDS: FUROSEMIDE 40 MG/4 ML VIAL IV (08:18)
[2020-11-23] MEDS: METOPROLOL ER 25 MG TABLET 12.5 MG PO (08:18)
[2020-11-23] MEDS: ATORVASTATIN 20 MG TABLET 40 MG PO (08:21)
[2020-11-23] MEDS: ACETAMINOPHEN 325 MG TABLET 650 MG PO (09:24)
[2020-11-23 10:00] VITALS: BP 115/69; PULSE 78; RESP 20; TEMP 36.6; O2SAT 96
--- NOTE | 2020-11-23 10:39 | PC.NURSE ---
[id number]
--- NOTE | 2020-11-23 10:40 | PC.NURSE ---
Patients is resting now after tylenol given for a headache. He is comfortable and lung sounds are clear. He will most likely go home this afternoon. Dr. Harmon is waiting for the results of the echo to come back. Patient is moving well and is independent in the room.
--- NOTE | 2020-11-23 20:02 | P.DS_ITS ---
History of Present Illness History of Present Illness Chief complaint: cant breathe at all Narrative: 69M with PMH of prostate cancer, small cell lung cancer on chemo and filgastrim, CAD s/p CABG, hypertension who presents with increasing sob and productive cough for the last week. He has recently got round 3/ through [facility] for chemo. He has recently had an increase in his dexamethasone. He has no known COPD or asthma, but does have an inhaler at home that he uses rarely. He notes dyspnea with exertion with walking across the room. He feels wheezy, and also has been having productive cough with green sputum. He has no fevers, chest pain, or orthopnea. He has noticed worse swelling in his lower extremities, abdomen, and around his neck and humps of shoulders. In the ER, workup was done. Vitals were notable for tachypnea with normal oxygen saturation. WBC was 0.5, with 100 PMNs, hgb 9.0, plts 58. Cxray and CT chest showed no acute process. BNP 252. troponin negative x1. procal 0.17. He was given vancomycin and zosyn, methylpred and nebulizers and admitted for further treatment. Discharge Providers Provider Date of admission: 11/21/20 18:19 Discharge Date: 11/23/20 Primary care physician: Hunter Ferraro MD Discharge provider: Jonathan Harmon MD Summary Hospital Course Discharge Diagnosis: 1. Acute respiratory distress 2. Acute COPD exacerbation, probable 3. Acute diastolic CHF exacerbation 4. Pancytopenia 5. Neutropenia 6. CAD s/p CABG 7. Hyperlipidemia 8. GERD 9. Depression 10. Obesity, BMI 35.4 11. History of prostate cancer 12. Small cell lung cancer Hospital Course: Mr. Spicer is a 69M with PMH of history of small cell lung cancer who presented with wheezing, coughing sputum, and shortness of breath. He was found to initially be quite tachypenic and increased work of breathing, though did not require oxygen. He was also noted to be volume overloaded with a mildly elevated BNP. He was started on antibiotics for a possible pneumonia though his chest xray and CT scan did not show any significant pneumonia, and showed decreased in his chronic pulmonary nodules. He was mildly volume overloaded and diuresed well with IV lasix. In addition he was treated for presumed COPD exacerbation given his history of smoking, with nebulizers, steroids, and azithromycin/ceftriaxone. COVID negative. He had good improvement with these treatments. On day of discharge was no longer short of breath. He had an ECHO which showed dilated RV but preserved ejection fraction. He initially was pancytopenic, secondary to his chemotherapy, and he did receive filgastrim in the hospital and his WBC improved from 0.5 on admission to 2.1. His platelets remained low in the 30s-50s but he did not have any bleeding and did not need any transfusion. He was discharged to complete a course of azithromycin, and prednisone for his COPD. He also had his lasix increased to 40mg PO daily. He should follow up with his PCP and cancer center in the next 2 weeks. Status at Discharge Cognitive/behavioral status at discharge: oriented Functional status at discharge: independent ambulation Overall status at discharge: patient is back to baseline Exam Vital Signs (past 8 hours): Oxygen Delivery Method Room Air Oxygen Flow Rate 0 Narrative Exam Narrative: GEN: no acute distress HEENT: moist mucous membranes, PERRL NECK: thick neck, no masses noted, has humps in shoulders CV: RRR with no murmurs ABD: slightly distended, obese, no pain to palpation PULM: clear bilaterally EXT: warm and well perfused with no edema NEURO: AAOx3, moving all extremities with no gross abnormalities PSYCH: pleasant mood Objective Labs Result Diagrams: 11/23/20 04:15 11/23/20 04:15 Labs: Laboratory Results - last 24 hr 11/23/20 11/23/20 04:15 04:15 WBC 2.1 L D RBC 2.67 L Hgb 8.5 L Hct 24.9 L MCV 93.4 MCH 32.0 MCHC 34.3 RDW 16.1 H Plt Count 37 L Sodium 136 L Potassium 3.9 Chloride 102 Carbon Dioxide 26 BUN 27 H Creatinine 0.77 Estimated GFR > 60.0 BUN/Creatinine Ratio 35.1 H Glucose 112 H D Calcium 9.3 PFSH Medical History Allergies Ankle pain Chronic back pain Fractures Hepatitis Liver disease Prostate cancer Surgical History History of heart bypass surgery (~2017) History of prostatectomy Family History Father Cancer Diabetes mellitus History of heart disease Hypertension Hyperlipidemia Mother Diabetes mellitus History of heart disease Brother Diabetes mellitus Sister Cancer Diabetes mellitus Social History household members: family and other Smoking Status: Former smoker Discharge Plan Discharge Plan Patient Disposition: Home Provider Discharge Comment: Mr. Spicer was admitted with wheezing and shortness of breath. He had fluid overload. He was treated with lasix, antibiotics, steroids, and breathing treatments. He improved with this treatment. He will have his dose of lasix increased. He will need to take two more days of antibiotics and steroids. He can continue his breathing treatments for 3-4 times per day for the next few days as he improves. He should hold his dexamethasone while on prednisone and then restart once finished prednisone. He was also noted to be neutropenic, he improved with filgastrim. He should follow up with PCP in 1-2 weeks. He had an ECHO done that showed enlarged right ventricle with normal ejection fraction. He was thought to have a combination of probable copd exacerbation and congestive heart failure exacerbation. He can be evaluated for COPD as an outpatient. Discharge orders & Medications Prescriptions: New prednisone 20 mg Tablet 40 mg PO DAILY 2 Days Qty: 4 RF: 0 azithromycin 250 mg tablet 250 mg PO DAILY 2 Days Qty: 2 RF: 0 furosemide [Lasix] 40 mg tablet 40 mg PO DAILY Qty: 30 RF: 0 Continued metoprolol succinate 25 mg tablet extended release 24 hr 12.5 mg PO DAILY RF: 0 omeprazole 20 mg capsule,delayed release(DR/EC) 20 mg PO DAILY RF: 0 escitalopram oxalate 10 mg tablet 10 mg PO DAILY RF: 0 lisinopril 10 mg tablet 10 mg PO DAILY RF: 0 atorvastatin 40 mg tablet 40 mg PO DAILY RF: 0 aspirin 81 mg tablet,delayed release (DR/EC) 81 mg PO DAILY RF: 0 albuterol sulfate 90 mcg/actuation HFA aerosol inhaler 2 puff INHALATION Q6H PRN (Reason: Headache) RF: 0 cetirizine [Allergy Relief (cetirizine)] 10 mg Tablet 10 mg PO DAILY PRN (Reason: Allergy Symptoms) RF: 0 acetaminophen 325 mg Tablet 500 mg PO Q4H PRN (Reason: Pain (Scale Score 1-3)) RF: 0 trazodone 50 mg Tablet 50 mg PO BEDTIME PRN (Reason: Sleep) RF: 0 tramadol 50 mg Tablet 50 mg PO Q4HR PRN (Reason: Pain (Scale Score 7-10)) RF: 0 dexamethasone 2 mg Tablet 2 mg PO DAILY RF: 0 triamcinolone acetonide 50 mcg [place],Non-Aerosol 50 mcg INTRANASAL RF: 0 fluticasone propionate 50 mcg/actuation [place],Suspension 2 spray INTRANASAL DAILY PRN (Reason: Congestion) RF: 0 magnesium oxide 400 mg magnesium Tablet 400 mg PO DAILY RF: 0 Discontinued benzonatate 200 mg Capsule 200 mg PO TID PRN (Reason: Cough) RF: 0 furosemide 20 mg Tablet 20 mg PO DAILY RF: 0 Guaifenesin DM 60-1,000 mg Tablet Extended Release 12 Hr 60 - 1,200 tab PO Q12HR RF: 0 Follow up/Referrals: Hunter Ferraro MD [Primary Care Provider] - Diet/Activity/Treatments Diet: Carb-consistent/Diabetic Visit Report/Discharge Packet Instructions: Acute Respiratory Distress Syndrome, DI for Heart Failure, DI for Chronic Obstructive Pulmonary Disease, Prednisone, Furosemide, Azithromycin Discharge Data Primary Care Provider: Hunter Ferraro Quality MIPS - DC The patient has current or prior documentation of left ventricular ejection fraction (LVEF) less than 40%, or moderate or severely depressed left ventricular systolic function.: No
--- NOTE | 2020-11-24 15:00 | CM.DPNOTE ---
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
== END 2020-11-23 13:30 | disposition home or self-care (01) | DRG 190 ==
LOC: ED 15:50 → AC 19:53
PROVIDERS: Emergency Medicine; Admitting Provider Internal Medicine; Emergency Provider Emergency Medicine; PCP Student in an Organized Health Care Education/Training Program; Referring Provider Emergency Medicine; Visit Provider Internal Medicine
DX: J44.1 Chronic obstructive pulmonary disease with (acute) exacerbation (principal); I50.33 Acute on chronic diastolic (congestive) heart failure; D61.811 Other drug-induced pancytopenia; C34.90 Malignant neoplasm of unspecified part of unspecified bronchus or lung; D70.1 Agranulocytosis secondary to cancer chemotherapy; E66.9 Obesity, unspecified; Z68.35 Body mass index [BMI] 35.0-35.9, adult; I25.10 Atherosclerotic heart disease of native coronary artery without angina pectoris; Z87.891 Personal history of nicotine dependence; Z95.1 Presence of aortocoronary bypass graft; Z20.822 Contact with and (suspected) exposure to COVID-19; R79.89 Other specified abnormal findings of blood chemistry; I11.0 Hypertensive heart disease with heart failure
CPT/HCPCS: 36415; 36591; 70490; 71046; 71275; 80048; 80053; 81003; 82550; 82962; 83605; 83735; 83880; 84145; 84484; 85007; 85025; 85027; 87040; 87070; 87205; 87634; 87635; 93005; 94150; 94640; 96365; 96367; 96375; 99285; C9803; C8929; J1642; J1644; J1940; J2405; J2543; J2930; J3475; J7613; Q5110; Q9957; Q9967

== ENCOUNTER → 2020-11-29 13:18 | Outpatient (CLI) | payer MEDICARE, MEDICAID, SELFPAY ==
[2020-11-21 20:11] VITALS: BMI 35.4
[2020-11-29 13:52] LABS: Hematocrit 28.1 % (41-53); Hemoglobin 9.8 g/dL (13.5-17.5); Mean Corpuscular HGB Conc 34.8 % (30-36); Mean Corpuscular Hemoglobin 32.9 PG (26-34); Mean Corpuscular Volume 94.4 fL (80-100); Platelet Count 92 X10^3/uL (150-400); Red Blood Cell Count 2.98 X10^6/uL (4.5-5.9); Red Cell Distribution Width 17.9 % (11.6-14.8); White Blood Cell Count 12.9 X10^3/uL (4.5-11.0)
[2020-11-29 13:57] LABS: Add Manual Diff / Slide Review YES
[2020-11-29 17:10] LABS: Alanine Aminotransferase 31 IU/L (<50); Albumin 4.2 g/dL (3.5-5.0); Albumin Globulin Ratio 1.7 (1.0-2.8); Alkaline Phosphatase 63 U/L (38-126); Aspartate Aminotransferase 24 IU/L (17-59); BUN Creatinine Ratio 34.1 (6-22); Bilirubin Total 0.4 mg/dL (0.2-1.3); Blood Urea Nitrogen 45 mg/dL (9-20); Calcium 9.3 mg/dL (8.4-10.2); Carbon Dioxide 28 mmol/L (22-32); Chloride 101 mmol/L (98-107); Estimated Glomerular Filt Rate 53.6 mL/min (>60); Globulin 2.5 g/dL (1.7-4.1); Glucose 143 mg/dL (80-110); HEMOLYSIS < 15 (0-50); Potassium 4.2 mmol/L (3.4-5.1); Sodium 141 mmol/L (137-145); Total Protein 6.7 g/dL (6.3-8.2)
[2020-12-05 07:33] LABS: Neutrophils Absolute Manual 0 /uL (3000-5900); Total Cells Counted 100
== END ==
PROVIDERS: PCP Student in an Organized Health Care Education/Training Program; Referring Provider Nurse Practitioner Gerontology; Visit Provider Nurse Practitioner Gerontology
DX: C61 Malignant neoplasm of prostate (principal)
CPT/HCPCS: 36415; 80053; 85007; 85025

== ENCOUNTER → 2020-12-26 11:02 | Outpatient (CLI) | payer MEDICARE, MEDICAID, SELFPAY ==
[2020-11-21 20:11] VITALS: BMI 35.4
[2020-12-26 12:25] LABS: Add Manual Diff / Slide Review NO; Basophils Absolute Auto 100 /uL (0-100); Basophils Percent Auto 1.1 % (0-2); Eosinophils Absolute Auto 200 /uL (0-450); Eosinophils Percent Auto 2.9 % (2-4); Hematocrit 28.7 % (41-53); Lymphocytes Absolute Auto 600 /uL (1100-4500); Lymphocytes Percent Auto 11.5 % (25-40); Mean Corpuscular HGB Conc 34.7 % (30-36); Mean Corpuscular Hemoglobin 34.8 PG (26-34); Mean Corpuscular Volume 100.3 fL (80-100); Monocytes Absolute Auto 600 /uL (0-900); Monocytes Percent Auto 10.4 % (3-14); Neutrophils Absolute Auto 4100 /uL (1500-7000); Neutrophils Percent Auto 74.1 % (50-75); Platelet Count 183 X10^3/uL (150-400); Red Blood Cell Count 2.86 X10^6/uL (4.5-5.9); Red Cell Distribution Width 22.3 % (11.6-14.8); White Blood Cell Count 5.6 X10^3/uL (4.5-11.0)
[2020-12-26 12:39] LABS: Anisocytosis 2+
[2020-12-26 13:09] LABS: Alanine Aminotransferase 22 IU/L (<50); Albumin 4.3 g/dL (3.5-5.0); Albumin Globulin Ratio 1.5 (1.0-2.8); Alkaline Phosphatase 50 U/L (38-126); Aspartate Aminotransferase 26 IU/L (17-59); BUN Creatinine Ratio 14.5 (6-22); Bilirubin Total 0.5 mg/dL (0.2-1.3); Blood Urea Nitrogen 16 mg/dL (9-20); Calcium 9.6 mg/dL (8.4-10.2); Carbon Dioxide 29 mmol/L (22-32); Chloride 102 mmol/L (98-107); Cholesterol 191 mg/dL (140-199); Estimated Glomerular Filt Rate > 60.0 mL/min (>60); Globulin 2.8 g/dL (1.7-4.1); Glucose 96 mg/dL (80-110); HDL Cholesterol 31 mg/dL (40-60); HEMOLYSIS < 15 (0-50); Potassium 3.9 mmol/L (3.4-5.1); Sodium 141 mmol/L (137-145); Total Protein 7.1 g/dL (6.3-8.2); Triglycerides 461 mg/dL (35-150)
== END ==
PROVIDERS: PCP Student in an Organized Health Care Education/Training Program; Referring Provider Nurse Practitioner Gerontology; Visit Provider Internal Medicine Cardiovascular Disease
DX: C61 Malignant neoplasm of prostate (principal); E78.5 Hyperlipidemia, unspecified
CPT/HCPCS: 36415; 80053; 80061; 85025

== ENCOUNTER → 2021-01-09 11:01 | Outpatient (CLI) | payer MEDICARE, MEDICAID, SELFPAY ==
[2020-11-21 20:11] VITALS: BMI 35.4
[2021-01-09 12:05] LABS: Add Manual Diff / Slide Review NO; Basophils Absolute Auto 0 /uL (0-100); Basophils Percent Auto 0.8 % (0-2); Eosinophils Absolute Auto 100 /uL (0-450); Eosinophils Percent Auto 2.4 % (2-4); Hematocrit 30.3 % (41-53); Hemoglobin 10.4 g/dL (13.5-17.5); Lymphocytes Absolute Auto 500 /uL (1100-4500); Lymphocytes Percent Auto 10.2 % (25-40); Mean Corpuscular HGB Conc 34.2 % (30-36); Mean Corpuscular Hemoglobin 34.5 PG (26-34); Mean Corpuscular Volume 101.1 fL (80-100); Monocytes Absolute Auto 400 /uL (0-900); Monocytes Percent Auto 8.2 % (3-14); Neutrophils Absolute Auto 4200 /uL (1500-7000); Neutrophils Percent Auto 78.4 % (50-75); Platelet Count 216 X10^3/uL (150-400); Red Cell Distribution Width 19.2 % (11.6-14.8); White Blood Cell Count 5.3 X10^3/uL (4.5-11.0)
[2021-01-09 12:25] LABS: BUN Creatinine Ratio 13.8 (6-22); Blood Urea Nitrogen 15 mg/dL (9-20); Calcium 9.5 mg/dL (8.4-10.2); Carbon Dioxide 29 mmol/L (22-32); Chloride 102 mmol/L (98-107); Estimated Glomerular Filt Rate > 60.0 mL/min (>60); Glucose 106 mg/dL (80-110); HEMOLYSIS < 15 (0-50); Potassium 3.7 mmol/L (3.4-5.1); Sodium 140 mmol/L (137-145)
== END ==
PROVIDERS: PCP Student in an Organized Health Care Education/Training Program; Referring Provider Nurse Practitioner; Visit Provider Nurse Practitioner
DX: I10 Essential (primary) hypertension (principal); I50.32 Chronic diastolic (congestive) heart failure; I77.810 Thoracic aortic ectasia; E78.5 Hyperlipidemia, unspecified
CPT/HCPCS: 36415; 80048; 85025

== ENCOUNTER → 2021-01-26 08:50 | Outpatient (CLI) | payer MEDICARE, MEDICAID, SELFPAY ==
[2020-11-21 20:11] VITALS: BMI 35.4
--- NOTE | 2021-01-26 | DI.CT.S_ITS ---
PROCEDURE: CT CHEST ABD PEL W CON INDICATIONS: prostate cancer TECHNIQUE: After the administration of oral and intravenous contrast, axial sections acquired from the supraclavicular neck to the pubic symphysis. Coronal and sagittal reformats were performed. For radiation dose reduction, the following was used: automated exposure control, adjustment of mA and/or kV according to patient size. COMPARISON:[facility], [place], [place] BONE SCAN WHOLE BODY, 01/26/2021, 12:59. [facility], CT, CT ANGIO CHEST PE PROTOCOL, 11/21/2020, 16:27. [facility], CT, CT CHEST ABDOMEN PELVIS WITH CONTRAST, 04/04/2020, 11:18. [place], [place], [place] BONE SCAN WHOLE BODY, 04/04/2020, 13:06. [facility], CT, CT CHEST WITH CONTRAST, 05/31/2020, 11:19. [facility], CT, CT CHEST ABD PEL W CON, 09/08/2020, 8:18. FINDINGS: Image quality: Excellent. CHEST: Lower Neck: No enlarged lymph nodes. Thyroid: Within normal limits. Axillae: No enlarged lymph nodes. Chest Wall: Unremarkable. Lungs and Airways: There are multiple pulmonary nodules bilaterally consistent with pulmonary metastases. Compared with the last CT on 11/21/2020, lung nodules are increased in size and number. Medical Laboratory Technician nodules are listed as the following: Nodule 1: 1 cm; posterior left upper lobe; series 2, image 101; 0.5 cm previously. Nodule 2: 0.9 cm; right middle lobe; series 2, image 155; previously 0.6 cm. . Pleura: No pneumothorax or pleural effusions. Heart: Heart size is normal. No pericardial effusion. There is moderate coronary artery calcification. Thoracic Vessels: The aorta and pulmonary arteries demonstrate normal size. Mediastinum and [place]: No enlarged lymph nodes. Esophagus: No wall thickening. Small hiatal hernia. Chest wall: There is a Port-A-Cath a in the right anterior chest. Note is made of gynecomastia. ABDOMEN: Liver: There is a 1.6 x 2.6 cm hypodense lesion in segment 5 of liver, new since the last exam suspicious for hepatic metastasis. Previously, there is a 1.4 cm hypodense lesion in the same area. A 6 mm low-density nodule is seen in segment 6, which is decreased in size, compatible with metastasis. Multiple other liver lesions are less conspicuous when compared to the last exam. Mild intrahepatic biliary dilation. Gallbladder: Surgically absent. Biliary ducts: Common bile duct is dilated measuring up to 13 mm. Pancreas: Unremarkable. Spleen: Unremarkable. Adrenal Glands: Unremarkable. Kidneys and Ureters: Unremarkable. Stomach and Bowel: Stomach, small bowel loops, and colon are unremarkable. Diverticulosis without diverticulitis. Moderate amount of stool in colon. Peritoneum: No abnormal intraperitoneal fluid. No free air. Ventral Wall: No hernia. Abdominal Nodes: No retroperitoneal or mesenteric adenopathy by size criteria. Vessels: Aorta and inferior vena cava are normal in size. PELVIS: Pelvic Organs: Unremarkable. Bladder: Contracted and unremarkable. Absence of prostate. Pelvic Nodes: No enlarged lymph nodes. Miscellaneous: No inguinal hernias are seen. Bones: There are multiple right rib fractures involving the 4th, 5th, 6th and 7th ribs. There are degenerative changes in spine. IMPRESSION: 1. Interval increase in size and number of pulmonary nodules consistent with worsening of pulmonary metastases. 2. Mixed change in liver lesions consistent with hepatic metastases. 3. Multiple right rib fractures are present correlating with foci of increased uptake on bone scan. Dictated by: Moon Talbert M.D. on 01/26/2021 at 16:03 Approved by: Moon Talbert M.D. on 01/26/2021 at 18:19
--- NOTE | 2021-01-26 | DI.NM.S_ITS ---
PROCEDURE: [place] BONE SCAN WHOLE BODY RADIOPHARMACEUTICAL: 21.3 mCi Tc-99m MDP IV. INDICATIONS: prostate cancer TECHNIQUE: Delayed whole-body scintigrams were obtained approximately 3-4 hours after intravenous injection of radiotracer. Anterior and posterior views were acquired from vertex to feet. COMPARISON: [facility], CT, CT CHEST ABD PEL W CON, 01/26/2021, 10:00. [facility], [place], [place] BONE SCAN WHOLE BODY, 04/04/2020, 13:06. FINDINGS: There are multiple foci of increased uptake involving the anterior lateral aspect of multiple ribs, most likely related to rib fractures. This finding is new. No lesions are identified in skull, sternum, clavicles, scapulae, ribs, bony pelvis, and visualized shafts of the long bones. There is low level increased uptake in cervical, thoracic and lumbar spine with distribution indistinguishable from degenerative disc and facet disease; early metastasis to spine could be obscured by degenerative changes. There are foci of increased periarticular activity involving shoulders, sternoclavicular joints, elbows, wrists, hands, hips, SI joints, knees, ankles and feet, compatible with degenerative/arthritic changes. IMPRESSION: 1. No definitive scintigraphic findings to suggest osseous metastasis. 2. Multiple foci of increased uptake involving the anterior lateral aspect of right 4th through 7th ribs, most likely secondary to rib fractures. This finding is new since the last exam. Dictated by: Moon Talbert M.D. on 01/26/2021 at 15:57 Approved by: Moon Talbert M.D. on 01/26/2021 at 18:11
== END ==
PROVIDERS: PCP Student in an Organized Health Care Education/Training Program; Referring Provider Nurse Practitioner Gerontology; Visit Provider Nurse Practitioner Gerontology
DX: C61 Malignant neoplasm of prostate (principal); R91.8 Other nonspecific abnormal finding of lung field; K76.9 Liver disease, unspecified
CPT/HCPCS: 71260; 74177; 78306; A9503; Q9967

== ENCOUNTER → 2021-02-26 09:33 | Outpatient (CLI) | payer MEDICARE, MEDICAID, SELFPAY ==
[2020-11-21 20:11] VITALS: BMI 35.4
[2021-02-26 11:51] LABS: Add Manual Diff / Slide Review NO; Basophils Absolute Auto 0 /uL (0-100); Basophils Percent Auto 0.6 % (0-2); Eosinophils Absolute Auto 200 /uL (0-450); Eosinophils Percent Auto 4.2 % (2-4); Hematocrit 36.7 % (41-53); Hemoglobin 12.2 g/dL (13.5-17.5); Lymphocytes Absolute Auto 600 /uL (1100-4500); Lymphocytes Percent Auto 15.3 % (25-40); Mean Corpuscular HGB Conc 33.2 % (30-36); Mean Corpuscular Hemoglobin 31.5 PG (26-34); Mean Corpuscular Volume 95.1 fL (80-100); Monocytes Absolute Auto 400 /uL (0-900); Monocytes Percent Auto 11.2 % (3-14); Neutrophils Absolute Auto 2700 /uL (1500-7000); Neutrophils Percent Auto 68.7 % (50-75); Platelet Count 179 X10^3/uL (150-400); Red Blood Cell Count 3.86 X10^6/uL (4.5-5.9); Red Cell Distribution Width 14.2 % (11.6-14.8); White Blood Cell Count 3.9 X10^3/uL (4.5-11.0)
[2021-02-26 12:07] LABS: Alanine Aminotransferase 19 IU/L (<50); Albumin 4.2 g/dL (3.5-5.0); Albumin Globulin Ratio 1.5 (1.0-2.8); Alkaline Phosphatase 63 U/L (38-126); Aspartate Aminotransferase 25 IU/L (17-59); BUN Creatinine Ratio 11.8 (6-22); Bilirubin Total 0.2 mg/dL (0.2-1.3); Blood Urea Nitrogen 11 mg/dL (9-20); Carbon Dioxide 26 mmol/L (22-32); Chloride 107 mmol/L (98-107); Estimated Glomerular Filt Rate > 60.0 mL/min (>60); Globulin 2.8 g/dL (1.7-4.1); Glucose 117 mg/dL (80-110); HEMOLYSIS < 15 (0-50); Potassium 4.1 mmol/L (3.4-5.1); Sodium 140 mmol/L (137-145)
== END ==
PROVIDERS: PCP Student in an Organized Health Care Education/Training Program; Referring Provider Nurse Practitioner Gerontology; Visit Provider Nurse Practitioner Gerontology
DX: C61 Malignant neoplasm of prostate (principal)
CPT/HCPCS: 36415; 80053; 85025

== ENCOUNTER → 2021-05-14 12:11 | Outpatient (CLI) | payer MEDICARE, MEDICAID, SELFPAY ==
[2020-11-21 20:11] VITALS: BMI 35.4
--- NOTE | 2021-05-14 | DI.RAD.S_ITS ---
PROCEDURE: XR CHEST 2V INDICATIONS: COUGH TECHNIQUE: 2 views of the chest were acquired. COMPARISON: [facility], CT, CT CHEST ABD PEL W CON, 01/26/2021, 10:00. [facility], CR, XR CHEST 2V, 11/21/2020, 13:32. FINDINGS: Surgical changes and devices: Right chest port with the tip projecting in the mid SVC. Sternotomy wires. Lungs and pleura: No pleural effusions or pneumothorax. Numerous bilateral pulmonary nodules, as better seen on the prior CT from 01/26/21. No definite new consolidation. Mediastinum: Mediastinal contours are normal. Heart size is normal. Bones and chest wall: No suspicious bony abnormalities. Soft tissues appear unremarkable. IMPRESSION: Redemonstrated numerous bilateral pulmonary nodules. These appear progressed since the prior CT although limited comparison given differences in imaging modality. Repeat chest CT could be performed for further assessment. No definite acute consolidation Dictated by: Paul Carvajal M.D. on 05/14/2021 at 14:58 Approved by: Paul Carvajal M.D. on 05/14/2021 at 15:00
[2021-05-14 12:43] LABS: Add Manual Diff / Slide Review NO; Basophils Absolute Auto 0 /uL (0-100); Basophils Percent Auto 0.7 % (0-2); Eosinophils Absolute Auto 200 /uL (0-450); Eosinophils Percent Auto 3.6 % (2-4); Hematocrit 38.5 % (41-53); Hemoglobin 12.7 g/dL (13.5-17.5); Lymphocytes Absolute Auto 800 /uL (1100-4500); Lymphocytes Percent Auto 17.1 % (25-40); Mean Corpuscular HGB Conc 32.9 % (30-36); Monocytes Absolute Auto 500 /uL (0-900); Monocytes Percent Auto 9.5 % (3-14); Neutrophils Absolute Auto 3400 /uL (1500-7000); Neutrophils Percent Auto 69.1 % (50-75); Platelet Count 159 X10^3/uL (150-400); Red Blood Cell Count 4.37 X10^6/uL (4.5-5.9); Red Cell Distribution Width 14.8 % (11.6-14.8); White Blood Cell Count 4.9 X10^3/uL (4.5-11.0)
[2021-05-14 13:01] LABS: Alanine Aminotransferase 19 IU/L (<50); Albumin 4.5 g/dL (3.5-5.0); Albumin Globulin Ratio 1.7 (1.0-2.8); Alkaline Phosphatase 70 U/L (38-126); Aspartate Aminotransferase 25 IU/L (17-59); BUN Creatinine Ratio 22.9 (6-22); Bilirubin Total 0.5 mg/dL (0.2-1.3); Blood Urea Nitrogen 22 mg/dL (9-20); Carbon Dioxide 27 mmol/L (22-32); Chloride 106 mmol/L (98-107); Estimated Glomerular Filt Rate > 60.0 mL/min (>60); Globulin 2.7 g/dL (1.7-4.1); Glucose 102 mg/dL (80-110); HEMOLYSIS 17 (0-50); Potassium 4.4 mmol/L (3.4-5.1); Sodium 140 mmol/L (137-145); Total Protein 7.2 g/dL (6.3-8.2)
== END ==
PROVIDERS: PCP Student in an Organized Health Care Education/Training Program; Referring Provider Nurse Practitioner Gerontology; Visit Provider Nurse Practitioner Gerontology
DX: C61 Malignant neoplasm of prostate (principal); R91.8 Other nonspecific abnormal finding of lung field; R05 Cough
CPT/HCPCS: 36415; 71046; 80053; 85025

== ENCOUNTER → 2021-05-21 08:20 | Outpatient (CLI) | payer MEDICARE, MEDICAID, SELFPAY ==
[2020-11-21 20:11] VITALS: BMI 35.4
--- NOTE | 2021-05-21 | DI.NM.S_ITS ---
PROCEDURE: [place] BONE SCAN WHOLE BODY RADIOPHARMACEUTICAL: 20.1 mCi Tc-99m MDP IV. INDICATIONS: Malignant neoplasm of prostate TECHNIQUE: Delayed whole-body scintigrams were obtained approximately 3-4 hours after intravenous injection of radiotracer. Anterior and posterior views were acquired from vertex to feet. Additional left and right oblique views of the thorax were obtained. COMPARISON: [facility], [place], CT CHEST ABD PEL W CON, 05/21/2021, 10:05. [facility], [place], [place] BONE SCAN WHOLE BODY, 01/26/2021, 12:59. FINDINGS: Multiple foci of uptake are redemonstrated within the right anterior 4th through 7th ribs with a linear distribution likely representing sequelae of prior trauma. Associated increased focal uptake is also demonstrated at the corresponding costochondral junctions also likely reflecting trauma. Is mild uptake along the facet joints in the lower lumbar spine consistent with facet arthropathy. Periarticular uptake also demonstrated in the knees and ankles consistent with degenerative changes. No suspicious focal osseous uptake to suggest metastatic disease. IMPRESSION: 1. No definite evidence of osseous metastatic disease. 2. Multiple foci of uptake redemonstrated along the right 4th through 7th anterior ribs consistent with sequelae of prior trauma. Dictated by: Eduardo Harris M.D. on 05/21/2021 at 17:38 Approved by: Eduardo Harris M.D. on 05/21/2021 at 17:40
--- NOTE | 2021-05-21 | DI.CT.S_ITS ---
PROCEDURE: CT CHEST ABD PEL W CON INDICATIONS: Malignant neoplasm of prostate TECHNIQUE: After the administration of oral and intravenous contrast, axial sections acquired from the supraclavicular neck to the pubic symphysis. Coronal and sagittal reformats were performed. For radiation dose reduction, the following was used: automated exposure control, adjustment of mA and/or kV according to patient size. COMPARISON: [facility], CT, CT CHEST ABD PEL W CON, 01/26/2021, 10:00. FINDINGS: Image quality: Excellent. CHEST: Lower Neck: No enlarged lymph nodes. Thyroid: Within normal limits. Axillae: No enlarged lymph nodes. Chest Wall: Unremarkable. Lungs and Airways: Significant interval progression of pulmonary metastatic disease. Previously noted index lesions are as follows: Nodule 1: Posterior left upper lobe near the major fissure. On previous image 101/2 it measured approximately 1 cm. On current image 97/2 it measures 2.6 x 2.1 cm. Nodule 2: Right middle lobe. On previous image 55/2 it measured 0.9 cm. On current image 143/2 it measures 1.9 x 1.6 cm. Numerous other pulmonary nodules have markedly increased in size. Multiple new pulmonary nodules have also developed. An example of a new lesion is a right middle lobe lesion on image 196/2. Pleura: No pneumothorax or pleural effusions. Heart: Heart size is normal. No pericardial effusion. Severe coronary artery calcifications. Remote CABG. Thoracic Vessels: The aorta and pulmonary arteries demonstrate normal size. Mediastinum and [place]: No enlarged lymph nodes. Esophagus: No wall thickening. No hiatal hernia. ABDOMEN: Liver: Question segment 5 liver metastatic lesion, representing a focal hypodensity, not significantly changed from the most recent prior study.. Gallbladder: Surgically absent. Biliary ducts: Unremarkable. Pancreas: Unremarkable. Spleen: Unremarkable. Adrenal Glands: Unremarkable. Kidneys and Ureters: Unremarkable. Stomach and Bowel: Moderately severe sigmoid diverticulosis without evidence of diverticulitis. Peritoneum: No abnormal intraperitoneal fluid. No free air. Ventral Wall: No hernia. Abdominal Nodes: No retroperitoneal or mesenteric adenopathy by size criteria. Vessels: Aorta and inferior vena cava are normal in size. PELVIS: Pelvic Organs: Question recurrent disease or locally metastatic disease along the right pelvic sidewall. Reference previous image 111/3 and current image 111/3. Bladder: Mild diffuse bladder wall thickening. Prostate tissue appears to be absent or markedly atrophied.. Pelvic Nodes: No enlarged lymph nodes. Miscellaneous: No inguinal hernias are seen. Bones: No lytic or blastic bony lesions seen. Diffuse degenerative change in the spine. Numerous mild old thoracic compressions with mild increase in the thoracic kyphosis. IMPRESSION: 1. Significant interval progression of pulmonary metastatic disease. 2. Question hepatic metastatic lesion, not significantly changed. 3. Question developing local recurrence along the right pelvic sidewall. 4. No obvious bone lesions. However, please refer to a bone scan report in the near future. Dictated by: Corey Hills M.D. on 05/21/2021 at 12:14 Approved by: Corey Hills M.D. on 05/21/2021 at 12:27
== END ==
PROVIDERS: PCP Student in an Organized Health Care Education/Training Program; Referring Provider Nurse Practitioner Gerontology; Visit Provider Nurse Practitioner Gerontology
DX: C61 Malignant neoplasm of prostate (principal); C78.01 Secondary malignant neoplasm of right lung; C78.02 Secondary malignant neoplasm of left lung; K76.9 Liver disease, unspecified; I25.10 Atherosclerotic heart disease of native coronary artery without angina pectoris; Z95.1 Presence of aortocoronary bypass graft
CPT/HCPCS: 71260; 74177; 78306; A9503

== ENCOUNTER 2021-06-19 10:09 | Emergency (ER) | payer MEDICARE, MEDICAID, SELFPAY ==
[2020-11-21 20:11] VITALS: BMI 35.4
[2021-06-19 10:15] VITALS: BP 176/94; PULSE 83; RESP 14; TEMP 36.8; O2SAT 97; BMI 34.0
[2021-06-19 10:23] LABS: Appearance Urine UA CLEAR; Bilirubin Urine UA NEGATIVE (NEGATIVE); Color Urine UA YELLOW; Glucose Urine UA NEGATIVE (Negative); Ketones Urine UA NEGATIVE (NEGATIVE); Leukocyte Esterase Urine UA NEGATIVE (NEGATIVE); Nitrite Urine UA NEGATIVE (Negative); Occult Blood Urine UA 3+ (Negative); Protein Urine UA NEGATIVE (Negative); Urobilinogen Urine UA 0.2 E.U./dL (0.2); pH Urine UA 6.5 (4.5-8.0)
[2021-06-19 10:32] LABS: Bacteria Urine None Seen; Culture Indicated Urine Cult Not Indicated; RBC Urine 10-30/HPF (0-5/HPF); WBC Urine None Seen (0-5/HPF)
--- NOTE | 2021-06-19 10:53 | ED_ITS ---
HPI - Male Genitourinary General Chief complaint: Urogenital-Male Stated complaint: Blood in urine Time Seen by Provider: 06/19/21 10:12 Source: patient Mode of arrival: Ambulatory Limitations: no limitations History of Present Illness HPI Narrative: 70-year-old male former smoker with history of prostate cancer treated with radiation, chemotherapy and surgery in 2018 with Mets to his lungs presents with a chief complaint of painless hematuria over the past few days. He denies any fever or chills. He states he does have some urinary irritation that has since resolved. He has had no fever chills and denies any back pain. He is not dizzy, weak or lightheaded. He is otherwise well and free of complaint. He recently had a CT scan of chest abdomen and pelvis with IV contrast a few weeks ago that showed an evolution of his pulmonary involvement. Related Data Home Medications Medication Instructions Recorded Confirmed aspirin 81 mg tablet,delayed 81 mg PO DAILY 06/17/19 05/15/21 release atorvastatin 40 mg tablet 40 mg PO DAILY 06/17/19 05/15/21 escitalopram oxalate 10 mg tablet 10 mg PO DAILY 06/17/19 05/15/21 lisinopril 10 mg tablet 10 mg PO DAILY 06/17/19 05/15/21 omeprazole 20 mg capsule,delayed 20 mg PO DAILY 06/17/19 05/15/21 release cetirizine 10 mg tablet (Allergy 10 mg PO DAILY PRN 12/21/19 05/15/21 Relief (cetirizine)) acetaminophen 325 mg tablet 500 mg PO Q4H PRN 12/22/19 05/15/21 dexamethasone 2 mg tablet 2 mg PO DAILY 11/21/20 05/15/21 fluticasone propionate 50 2 spray INTRANASAL DAILY PRN 11/21/20 05/15/21 mcg/actuation nasal spray,suspension magnesium oxide 400 mg PO DAILY 11/21/20 05/15/21 tramadol 50 mg tablet 50 mg PO Q4HR PRN 11/21/20 05/15/21 trazodone 50 mg tablet 50 mg PO BEDTIME PRN 11/21/20 05/15/21 triamcinolone acetonide 50 mcg 50 mcg INTRANASAL 11/21/20 05/15/21 nasal spray furosemide 40 mg tablet (Lasix) 40 mg PO DAILY tab 01/17/21 05/15/21 metoprolol succinate 25 mg 25 mg PO DAILY 01/29/21 05/15/21 tablet,extended release 24 hr Previous Rx's Medication Instructions Recorded albuterol sulfate 90 mcg/actuation 2 puff INHALATION Q6H PRN #18 g 12/04/20 aerosol inhaler Allergies Allergy/AdvReac Type Severity Reaction Status Date / Time codeine Allergy Vomiting Verified 06/19/21 10:20 Penicillins Allergy Verified 06/19/21 10:20 Review of Systems Review of Systems Narrative: GENERAL: Denies chills, fatigue, malaise, fever, sweats. HEENT: Denies sinus pain, ear pain, sore throat, difficulty swallowing, dizziness. RESPIRATORY: Denies dyspnea, cough, wheezing, hemoptysis, sputum. CARDIOVASCULAR: Denies chest pain, palpitations, orthopnea, edema, GASTROINTESTINAL: Denies nausea, vomiting, abdominal pain, diarrhea, constipation, melena. : See HPI MUSCULOSKELETAL: denies weakness, joint pain, or bony pain SKIN: Denies rash, skin lesions, or other NEUROLOGIC: Denies weakness, headache, numbness, change in speech, confusion, seizures, incoordination. PSYCHIATRIC: No concerning psychosocial issues. 12 point review of systems is negative except for those stated above Patient History Medical History Allergies Ankle pain Chronic back pain Diverticulitis Fractures Hepatitis Prostate cancer Surgical History History of heart bypass surgery (~2017) History of prostatectomy Family History Father Cancer Diabetes mellitus History of heart disease Hypertension Hyperlipidemia Mother Diabetes mellitus History of heart disease Brother Diabetes mellitus Sister Cancer Diabetes mellitus Social History household members: family and other Smoking Status: Former smoker Smoking Status: Former smoker alcohol intake frequency: holidays/special occasions only Alcohol type: wine Substance Use Type: does not use Exam Narrative Exam Narrative: GEN: AOx3 and in mild distress EYES: Pupils are equal, round, and reactive to light and accommodation. Extraoccular muscles are intact bilaterally. There is no subconjunctival hemorrhage or exudate. CHEST: Lungs are clear to auscultation bilaterally and free of wheezes, rales, or rhonchi. Heart rate is regular rhythm, there are no murmurs, clicks, rubs, or gallops. There is no chest wall tenderness. ABD: Abdomen is soft and nontender. There is no guarding or rebound. Bowel sounds are normal in all 4 quadrants. There is no mass or organomegaly. EXT: Full painless ROM of all extremities with no loss of sensation or strength. SKIN: Warm, pink, and dry. No erythema or rash Initial Vital Signs Initial Vital Signs: Vital Signs Temperature 98.3 F 06/19/21 10:15 Pulse Rate 83 06/19/21 10:15 Respiratory Rate 14 06/19/21 10:15 Blood Pressure 176/94 H 06/19/21 10:15 Pulse Oximetry 97 06/19/21 10:15 Course Course Course Narrative: Patient passed a small clot earlier today and has had no symptoms since. At no point has he had gross hematuria. He is otherwise well and free of complaint. He has an appointment at the [facility] on Friday and hopes to discuss a urology referral with them. I told him I would give him contact information for local urologist as he would likely need a cystoscopy. Return precautions given and questions answered to his apparent satisfaction Orders Ordered: ED Orders 06/19/21 10:21 Urinalysis and Microscopic Stat Vital Signs Vital signs: Vital Signs - 8 hr 06/19/21 10:15 06/19/21 11:04 Temperature 98.3 F Pulse Rate 83 76 Respiratory Rate 14 16 Blood Pressure 176/94 H 131/72 Pulse Oximetry 97 96 MDM - Male Genitourinary Lab Data Labs: Lab Results 06/19/21 Range/Units 10:21 Urine Color Yellow Urine Appearance Clear Urine pH 6.5 (4.5-8.0) Ur Specific [place] 1.010 (1.000-1.035) Urine Protein Negative (Negative) Urine Glucose (UA) Negative (Negative) g/dL Urine Ketones Negative (NEGATIVE) Urine Occult Blood 3+ H (Negative) Urine Nitrate Negative (Negative) Urine Bilirubin Negative (NEGATIVE) Urine Urobilinogen 0.2 (0.2) E.U./dL Ur Leukocyte Esterase Negative (NEGATIVE) Urine RBC 10-30/hpf H (0-5/HPF) Urine WBC None seen (0-5/HPF) Urine Bacteria None seen (None) Ur Culture Indicated? Cult not indicated Discharge Plan Departure Patient Disposition: Home Clinical Impression: Hematuria Qualifiers: Hematuria type: unspecified type Qualified Code(s): R31.9 - Hematuria, unspecified Instructions: DI for Hematuria Activity Restrictions/Additional Instructions: *You have been diagnosed with [hematuria without signs of infection] *What to do: *Please continue to take your regular medications as directed. [ ] New medication prescriptions sent to your pharmacy: [ ] [ ] New medication written as a paper prescription [ x] No new medications given *Please follow up with your care team at on Friday as planned. Let them know you were seen in the Emergency Department and that we ask that you be seen in follow up. We will electronically transmit a record of today's note if your PCP is in our system *Also, as discussed please contact Dr. Mccormick with urology for follow up. His office info is listed below. Let them know that you were seen in the emergency department we asked that you be seen in follow-up *Return to Emergency Department if you should have any new, worsening or concerning symptoms, such as [fever greater than 101 F, shaking chills, inability to urinate, persistent vomiting or other bothersome symptoms] Prescriptions: No Action metoprolol succinate 25 mg tablet extended release 24 hr 25 mg PO DAILY RF: 0 omeprazole 20 mg capsule,delayed release(DR/EC) 20 mg PO DAILY RF: 0 escitalopram oxalate 10 mg tablet 10 mg PO DAILY RF: 0 lisinopril 10 mg tablet 10 mg PO DAILY RF: 0 atorvastatin 40 mg tablet 40 mg PO DAILY RF: 0 aspirin 81 mg tablet,delayed release (DR/EC) 81 mg PO DAILY RF: 0 albuterol sulfate 90 mcg/actuation HFA aerosol inhaler 2 puff INHALATION Q6H PRN (Reason: shortness of breath or wheezing) Qty: 18 RF: 11 furosemide [Lasix] 40 mg tablet 40 mg PO DAILY RF: 0 cetirizine [Allergy Relief (cetirizine)] 10 mg Tablet 10 mg PO DAILY PRN (Reason: Allergy Symptoms) RF: 0 acetaminophen 325 mg Tablet 500 mg PO Q4H PRN (Reason: Pain (Scale Score 1-3)) RF: 0 trazodone 50 mg Tablet 50 mg PO BEDTIME PRN (Reason: Sleep) RF: 0 tramadol 50 mg Tablet 50 mg PO Q4HR PRN (Reason: Pain (Scale Score 7-10)) RF: 0 dexamethasone 2 mg Tablet 2 mg PO DAILY RF: 0 triamcinolone acetonide 50 mcg [place],Non-Aerosol 50 mcg INTRANASAL RF: 0 fluticasone propionate 50 mcg/actuation [place],Suspension 2 spray INTRANASAL DAILY PRN (Reason: Congestion) RF: 0 magnesium oxide 400 mg magnesium Tablet 400 mg PO DAILY RF: 0 Referrals: Hunter Ferraro MD [Primary Care Provider] - Kevan Mccormick MD [Physician] -
[2021-06-19 11:04] VITALS: BP 131/72; PULSE 76; RESP 16; O2SAT 96
== END 2021-06-19 11:05 | disposition home or self-care (01) ==
PROVIDERS: Emergency Provider Emergency Medicine; PCP Student in an Organized Health Care Education/Training Program
DX: R31.9 Hematuria, unspecified (principal)
CPT/HCPCS: 81001; 99281; 99282